=== PATIENT | male | born 1960 | race Caucasian/White ===

== ENCOUNTER 2021-10-28 12:10 | Outpatient (CLI) | payer OTHER, SELFPAY ==
--- NOTE | ~2021-10-28 | US_ITS ---
EXAMINATION: US venous doppler LE RT DATE: 10/28/2021 12:56 INDICATION: Right lower limb pain TECHNIQUE: Yen scale images without and with compression and Doppler images of the right lower extre mity veins were obtained. COMPARISON: None FINDINGS: The right common femoral vein, profunda femoral vein, femoral vein, popliteal vein, peronea l trunk, posterior tibial veins, and greater saphenous vein are patent. IMPRESSION: 1. Patent right lower extremity veins. No evidence of deep venous thrombosis. 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 CTOR OF AGRONOMY
== END 2021-10-28 12:11 | disposition home or self-care (01) ==
PROVIDERS: PCP Internal Medicine; Visit Provider Orthopaedic Surgery
DX: M79.89 Other specified soft tissue disorders (principal)
CPT/HCPCS: 93971

== ENCOUNTER 2022-04-10 01:39 | Day surgery (SDC) | payer OTHER, SELFPAY ==
[2022-03-23 16:08] VITALS: BMI 26.8
--- NOTE | 2022-04-07 13:37 | PM.HPGS ---
History of Present Illness History of Present Illness Consent: Risks, benefits, and alternatives have been discussed and questions answered. Patient agrees to proceed with procedure. Chief complaint: hx of colon polyps, neoplasm screening Narrative: Kenneth Lai is a 61 year old male With a history of polyps. He had a tubular adenoma Review of Systems Review of Systems: All systems reviewed & are unremarkable except as noted in HPI and below PMFSH Past Medical History Medical History Chronic, continuous use of opioids Hyperlipidemia Rheumatoid arthritis Surgical History Surgical History History of appendectomy History of cholecystectomy Social History Social History Smoking status: Former smoker Tobacco type: cigarettes Alcohol intake: current Alcohol use details: 12 pack a week, socially Substance use: current Substance use type: marijuana Other substance usage details: daily Living arrangements: with family Spiritual care concerns: No Meds Home Medications and Allergies Home Medications Medication Instructions Recorded Confirmed Type sodium sul 1.479 gram-potas ch See Rx Instructions PO PER PKG DIR 03/07/22 03/23/22 Rx 0.188 gram-magnes sul 0.225 gram #24 tabs tablet (Sutab) adalimumab 40 mg/0.4 mL 40 ea subcut DAILY 03/23/22 03/23/22 History subcutaneous pen kit (Humira(CF) Pen) atorvastatin 20 mg tablet 20 tablet PO DAILY 03/23/22 03/23/22 History folic acid 1 mg tablet 1 mg PO DAILY 03/23/22 03/23/22 History gabapentin 300 mg capsule 300 mg PO QPM 03/23/22 03/23/22 History meloxicam 15 mg tablet 15 tablet PO DAILY 03/23/22 03/23/22 History methotrexate sodium 2.5 mg tablet 2.5 tablet PO DAILY 03/23/22 03/23/22 History methylprednisolone 4 mg tablets in 4 mg PO WEEKLY 03/23/22 03/23/22 History a dose pack tramadol 50 mg tablet tablet PO TID 03/23/22 History Allergies Allergy/AdvReac Type Severity Reaction Status Date / Time No Known Allergies Allergy Verified 04/10/22 09:07 Exam Resp: Auscultation: clear to auscultation bilaterally Cardio: Rate: regular rate Rhythm: regular rhythm GI: GI Palp: Yes Soft to palpation and No Tenderness to palpation present (GI) Assessment and Plan Assessment and plan (1) Colon cancer screening: Code(s): Z12.11 - Encounter for screening for malignant neoplasm of colon Status: Acute Assessment and Plan: Colonoscopy with possible biopsy or polypectomy or cautery or injection of substances.
--- NOTE | 2022-04-10 07:19 | WPDANESEPPF ---
Anes - Initial Pre Proc Eval Procedure: Operation Date: 04/10/22 09:00 Proposed Procedures p Screening Colonoscopy - Trenton Ingram MD Date/Time: 04/10/22 07:20 Surgeon: Trenton Ingram MD Pre Op Diagnosis: hx of colon polyps, neoplasm screening Patient Data Age: 61 Gender: M Height: 1.78 m Weight: 84.9 kg Allergies Allergy/AdvReac Type Severity Reaction Status Date / Time No Known Allergies Allergy Verified 04/10/22 09:07 Home Medications Medication Instructions Recorded Confirmed Type sodium sul 1.479 gram-potas ch See Rx Instructions PO PER PKG DIR 03/07/22 03/23/22 Rx 0.188 gram-magnes sul 0.225 gram #24 tabs tablet (Sutab) adalimumab 40 mg/0.4 mL 40 ea subcut DAILY 03/23/22 03/23/22 History subcutaneous pen kit (Humira(CF) Pen) atorvastatin 20 mg tablet 20 tablet PO DAILY 03/23/22 03/23/22 History folic acid 1 mg tablet 1 mg PO DAILY 03/23/22 03/23/22 History gabapentin 300 mg capsule 300 mg PO QPM 03/23/22 03/23/22 History meloxicam 15 mg tablet 15 tablet PO DAILY 03/23/22 03/23/22 History methotrexate sodium 2.5 mg tablet 2.5 tablet PO DAILY 03/23/22 03/23/22 History methylprednisolone 4 mg tablets in 4 mg PO WEEKLY 03/23/22 03/23/22 History a dose pack tramadol 50 mg tablet tablet PO TID 03/23/22 History Patient hx anesthesia problems: none Family hx anesthesia problems: none Results Review: All pre-operative results and documents have been reviewed as part of the pre-operative evaluation. [facility] Past Medical History Medical History Chronic, continuous use of opioids Hyperlipidemia Rheumatoid arthritis Surgical History Surgical History History of appendectomy History of cholecystectomy Social History Social History Smoking status: Former smoker Tobacco type: cigarettes Alcohol intake: current Alcohol use details: 12 pack a week, socially Substance use: current Substance use type: marijuana Other substance usage details: daily Living arrangements: with family Spiritual care concerns: No Anes - Eval Final PreProcedure Day of Procedure 04/10/22 07:20 Patient weight: overweight Heart: regular rate and rhythm Lungs: clear to auscultation Airway: Mallampati scale class II Neurological: alert and oriented Last oral intake: >/= 8 hours ASA classification: III Emergent: no Anesthetic plan: proceed Anesthesia type and monitoring: general GIVS and standard monitoring Results Review: All pre-operative results and documents have been reviewed as part of the pre-operative evaluation. Informed Consent: The patient's anesthetic plan and its attendant risks and benefits were discussed with the patient/family/POA. Questions were solicited and answers provided to the satisfaction of the patient/family/POA.
[2022-04-10 09:08] VITALS: BP 164/93; PULSE 60; RESP 20; TEMP 36.5; O2SAT 100
[2022-04-10] MEDS: LACTATED RINGERS 1,000 ML 150 ML IV CONT (09:28)
[2022-04-10] MEDS: AMPICILLIN 2 GM/NS 100 ML 2 GM/100 ML BAG IVPB (09:30)
[2022-04-10] MEDS: SIMETHICONE ORAL SUSPENSION 20 MG/0.3 ML 30 ML BOTTLE 0.6 ML IRRIGATION (09:48)
[2022-04-10 09:54] VITALS: BP 140/92; PULSE 81; RESP 21; O2SAT 98
[2022-04-10 10:04] VITALS: BP 160/97; PULSE 66; RESP 16; O2SAT 97
[2022-04-10 10:14] VITALS: BP 132/90; PULSE 64; RESP 16; O2SAT 98
== END 2022-04-10 10:19 | disposition home or self-care (01) ==
PROVIDERS: PCP Internal Medicine; Visit Provider Internal Medicine Gastroenterology
PROC: 0DJD8ZZ Inspection of Lower Intestinal Tract, Via Natural or Artificial Opening Endoscopic (ICD-10-PCS; CPT 45378; principal; 2022-04-10 09:00)
DX: Z12.11 Encounter for screening for malignant neoplasm of colon (principal); K57.30 Diverticulosis of large intestine without perforation or abscess without bleeding; Z86.010 Personal history of colon polyps; E78.5 Hyperlipidemia, unspecified; M06.9 Rheumatoid arthritis, unspecified; Z87.891 Personal history of nicotine dependence; F12.90 Cannabis use, unspecified, uncomplicated
CPT/HCPCS: 45378; J0290; J2001; J2704; J7120

== ENCOUNTER 2024-11-20 08:01 | Outpatient (CLI) | payer OTHER, SELFPAY ==
--- NOTE | ~2024-11-20 | CT_ITS ---
EXAMINATION: CT IAC/mastoids BI wo con DATE: 11/20/2024 08:23 INDICATION: Cholesteatoma. TECHNIQUE: Computed tomography (CT) of the temporal bones was performed without intravenous contrast. Automated exposure control and iterative reconstruction technique were employed. The dose-length pro duct was 218.72 mGy-cm. COMPARISON: None FINDINGS: RIGHT TEMPORAL BONE: The internal auditory canal, cochlea, vestibule, semicircular canals, vestibular aqueduct, carotid ca nal, jugular bulb, facial nerve course, and ossicles are normal. There is material measuring 2 mm in Prussak space. Scutum is normal. The tympanic membrane is normal. There is a right mastoid effusion. The external auditory canal is normal. LEFT TEMPORAL BONE: The internal auditory canal, cochlea, vestibule, semicircular canals, vestibular aqueduct, carotid ca nal, jugular bulb, and facial nerve course are normal. There is material in the tympanic cavity inclu ding Prussak space. There is an mastoid effusion. There is dehiscence of the tegmen tympani and tegme n mastoideum. There is blunting of scutum. The external auditory canal is normal. IMPRESSION: 1. Material measuring 2 mm in right Prussak space, which is indeterminate for cholesteatoma. 2. Left otomastoid effusion including material in Prussak space with dehiscence of the tegmen tympani and tegmen mastoideum and blunting of scutum, consistent with chronic otitis media versus cholesteat bernadine. 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 BER IMPRESSION: 1. Material measuring 2 mm in right Prussak space, which is indeterminate for c holesteatoma. 2. Left otomastoid effusion including material in Prussak space with dehiscence of the tegmen tympani and tegmen mastoideum and blunting of scutum, consistent with chronic otitis media versus cholesteatoma.
== END 2024-11-20 08:02 | disposition home or self-care (01) ==
PROVIDERS: PCP Internal Medicine; Visit Provider Nurse Practitioner Family
DX: H71.90 Unspecified cholesteatoma, unspecified ear (principal)
CPT/HCPCS: 70480

== ENCOUNTER 2024-11-28 12:25 | Outpatient (CLI) | payer OTHER, SELFPAY ==
--- NOTE | ~2024-11-28 | MR_ITS ---
EXAMINATION: MR hand RT wo/w con DATE: 11/28/2024 13:14 INDICATION: Mass at the right third digit TECHNIQUE: Magnetic resonance imaging (MRI) of the right hand was performed without and with 19 mL Mu ltihance intravenous contrast. A marker was placed over the mass. Sequences included axial, sagittal and coronal T1-weighted FSE and fluid sensitive FSE STIR, axial T1-weighted FS FSE and post contrast axial and sagittal T1-weighted FS FSE. COMPARISON: None. FINDINGS: There is a mass positioned along the dorsal margin of the third middle phalanx which measures 1.8 x 1 .6 x 1.0 cm which demonstrates is T1 hyperintense and mildly T2 hyperintense to skeletal muscle. Ther e is an enhancing region at the ulnar side of the nodule. There is a second slightly smaller nodule m easuring 1.5 x 1.0 x 0.6 cm along the radial side of the third distal interphalangeal joint which dem onstrates similar imaging features with mild enhancement on the postcontrast imaging. The masses are in very close proximity but a definitive communication between the 2 cannot be identified on the prov ided images. The mass abuts the cortices of the middle and distal phalanges but without evident corti veda erosion or remodeling. The underlying marrow signal is normal as is throughout the remainder of t he visualized hand. The dorsal mass lies along the dorsal margin of the flexor tendons which the serge steve of the flexor and extensor tendons appear normal. No other masses identified. There is mild yaquelin yarticular osteoarthritis at the triscaphe, first carpometacarpal and multiple metacarpophalangeal an d interphalangeal joints. No joint effusions, 2 cm other abnormal fluid collections. IMPRESSION: 1. There are couple nonspecific small partially/heterogeneously enhancing masses in the mid to distal third digit which is concerning for neoplasm which could be either benign or malignant. Reviewed, dictated and finalized at location B. RR TECHNICIAN IMPRESSION: 1. There are couple nonspecific small partially/heterogeneously enhancing zeke s in the mid to distal third digit which is concerning for neoplasm which could be either benign or malignant.
== END 2024-11-28 12:26 | disposition home or self-care (01) ==
PROVIDERS: PCP Internal Medicine; Visit Provider Physician Assistant Surgical
DX: R22.31 Localized swelling, mass and lump, right upper limb (principal)
CPT/HCPCS: 73220; A9577

== ENCOUNTER 2025-01-22 06:02 | Day surgery (SDC) | payer OTHER, SELFPAY ==
[2025-01-02 09:30] VITALS: BMI 28.5
--- NOTE | 2025-01-07 12:46 | PC.NURSE ---
Chart reviewed by Dr Mckeon; no EKG needed pre op.
--- OUTSIDE RECORDS SUMMARY | 2025-01-22 06:40 | XMS_ITS | CONTINUITY OF CARE DOCUMENT ---
Author Name hosea jc Address Unknown Organization [facility] Address [address] [place] [address] Phone [phone] Care Team Providers Care Wrapper Hand Name Role Phone Varun ROMERO, Sheyla Unavailable [phone] JORDIN MENA MD Unavailable JORDIN MENA MD Unavailable PROBLEMS Condition Status Date Provider Notes Rheumatoid arthritis (RA) active Romulo Ahmed martina GERD active Romulo Ahmedzai Hyperlipidemia active Romulo Ahmedzai Shortness of breath--echo ef 65%, 09/2022 active Romulo Ahmedzai Emphysema completed - Romulo Ahmedzai Family hx of heart disease active Sheyla redd MD Chest pain--nl stress nuc, 09/2022 active Romulo Ahshruthizai Fatigue active Sheyla Bond MD Hypertension active Sheyla Bond MD JENNIFER has overnight cpap study scheduled active Sheyla Bond MD ENCOUNTERS Date Type Provider Location Encounter Diag nosis - In-person encounter Office Visit Sheyla Bond MD [facility] - In-person encounter Office Visit Sheyla Bond MD [facility] JENNIFER has overnight cpap study scheduled - In-person encounter Office Visit Sheyla Bond MD [facility] HypertensionOSA has overnight cpap study scheduled - In-person encounter Office Visit Sheyla Bond MD [facility] Shortness of breath--echo ef 65%, 09/2022EmphysemaChest pain--nl stress nuc, 09/2022 - In-person encounter Office Visit Sheyla Bond MD [facility] Family hx of heart diseaseChest pain--nl stress nuc, 09/2022Fatigue VITAL SIGNS Date Observation Value Provider Body Mass Index (Ratio) 4.27 kg/m2 Priyank Bond MD blood pressure, diastolic 87 mm[Hg] Mendoza [facility] blood pressure, systolic 119 mm[Hg] Tracy kamara [place] oxygen saturation, oximetry 93 % [facility] pulse rate 72 /min [facility] weight E&M 203.6 [lb_av] [facility] blood pressure, cuff size regular Mendoza [facility] height E&M 183 [in_i] [facility] Body Mass Index (Ratio) 4.16 kg/m2 Priyank Bond MD blood pressure, cuff size regular Connor sherryvazquez Poon blood pressure, diastolic 84 mm[Hg] Ta bitha Poon blood pressure, systolic 124 mm[Hg] Tab itha Poon oxygen saturation, oximetry 100 % Tena Poon respiratory rate E&M 12 /min Tena Poon pulse rate 76 /min Tena Poon weight E&M 198.4 [lb_av] Tena Poon height E&M 183 [in_i] Tena Poon Body Mass Index (Ratio) 4.07 kg/m2 Priyank Bond MD blood pressure, diastolic 90 mm[Hg] Tyra cabralesLogestephanie blood pressure, systolic 139 mm[Hg] Suzanne [facility] blood pressure, cuff size regular Angle borja [place] blood pressure, diastolic 90 mm[Hg] Angle borja [place] blood pressure, systolic 139 mm[Hg] Ezio orantes Poon pulse rate 72 /min Charmaine Bartlett oxygen saturation, oximetry 92 % [facility] respiratory rate E&M 16 /min Charmaine Smith iller weight E&M 194 [lb_av] [facility] height E&M 183 [in_i] [facility] Body Mass Index (Ratio) 3.64 kg/m2 Priyank Bond MD blood pressure, diastolic 77 mm[Hg] St amauri Bae blood pressure, systolic 126 mm[Hg] Dov Bae oxygen saturation, oximetry 98 % Phoebe Bae pulse rate 61 /min Phoebe Bae weight E&M 173.6 [lb_av] Phoebe Bae respiratory rate E&M 16 /min Phoebe D jessie height E&M 183 [in_i] Phoebemilan Bae Body Mass Index (Ratio) 1.51 kg/m2 Priyank Bond MD blood pressure, diastolic 86 mm[Hg] Tyra Log blood pressure, systolic 130 mm[Hg] [facility]&M 72 [lb_av] Phoebemilan Bae height E&M 183 [in_i] Phoebe Catalino blood pressure, diastolic 86 mm[Hg] St acy Catalino blood pressure, systolic 130 mm[Hg] Sta cy Catalino oxygen saturation, oximetry 95 % Phoebemilan Bae pulse rate 66 /min Phoebe Catalino respiratory rate E&M 18 /min Phoebe D jessie ALLERGIES No Known Drug Allergies HISTORY OF MEDICATION USE Medication Status Instructions Dates Provider Indications Com ments ferrous sulfate 325 mg (65 mg iron) tablet active Take 1 tablet by mouth three times a day Peyton Magallon Vitamin C 500 mg tablet active Take 1 tablet by mouth once a day Peyton Magallon losartan 50 mg tablet active Take 1 tablet by mouth once a day TAKE 1 TABLET BY MOUTH EVERY DAY Ashley Tovarjerabilio losartan 50 mg tablet completed TAKE 1 TABLET BY MOUTH ONCE DAILY - Ashley Tovarjerabilio omeprazole 40 mg capsule,delayed release(DR/EC) active Romulo Osborne Enbrel SureClick 50 mg/mL (1 mL) pen injector active Romulo Osborne losartan 50 mg tablet completed - Romulo Osborne Humira(CF) Pen 40 mg/0.4 mL pen injector kit completed - Romulo Osborne methotrexate sodium 2.5 mg tablet completed - Romulo Osborne tramadol 50 mg tablet completed - Sheyla Bond MD gabapentin 300 mg capsule completed - Romulo Osborne atorvastatin 20 mg tablet active Romulo Osborne SOCIAL HISTORY Date Observation Value Provider Underweight yes Sheyla Bond MD passive cigarette sm april exposure no Romulo Osborne chewing tobacco use Never Romulo banda smoking, year quit 2020 Romulo nix cigarette use yes Romulo Osborne smoking status Former smoker Romulo Munguia i passive cigarette sm april exposure no Sheyla Bond MD chewing tobacco use Never Sheyla balderrama MD smoking, year quit 2020 Sheyla redd MD cigarette use yes Sheyla Eid smoking status Former smoker Sheyla Bond MD Underweight yes Sheyla Bond MD Underweight yes Sheyla Bond MD passive cigarette sm april exposure no Romulo Osborne chewing tobacco use Never Romulo Bautista solo smoking, year quit 2020 Romulo Lopez boyd cigarette use yes Romulo Nemobrynn smoking status Former smoker Romulo Chesterfunmilayo rodriguez Underweight yes Sheyla Bond MD social history E&M S moking History: J Carlos perez is a former smoker. Romulo Osborne passive cigarette sm april exposure no Phoebe Catalino chewing tobacco use Never Phoebe Da vis smoking, year quit 2020 Phoebe Sandro is cigarette use yes Phoebe Catalino smoking status Former smoker Phoebe Catalino social history reviewed E&M revi ewed - no changes required Romulo Osborne Underweight yes Sheyla Bond MD social history E&M S moking History: J Carlos perez is a former smoker. Romulo Osborne smoking, year quit 2020 Phoebe Sandro is cigarette use yes Phoebe Catalino passive cigarette sm april exposure no Phoebe Catalino chewing tobacco use Never Phoebe Da vis smoking status Former smoker Phoebe Catalino social history reviewed E&M revi ewed - no changes required Romulo Osborne INSURANCE PROVIDERS Payer name Policy type / Coverage type Wellpinit red republican ID [facility] [id number] Other [id number] ADVANCE DIRECTIVES Name Date DISCUSSED - NO DECISION MADE TREATMENT PLAN Date Name Performer [id number],S, Romulo Munguia i [id number],S, Romulo Munguia i [id number],S, Romulo Munguia i [id number],B, Romulo Munguia i [id number],S, Romulo Munguia i [id number],S, Romulo Munguia i [id number],S, Romulo Munguia i [id number],S, Romulo Munguia i [id number],S, Romulo Munguia i [id number],S, Romulo Munguia i Cardiology:This visi t has been a part of the consistent, comprehensive, and ongoing management of the chronic medical condition(s) listed above for the patient. BP today: 119/87 P rior BP: 124/84 (02/25/2024) His updated medication list for this problem includes: Losartan 50 Mg Tablet (Losartan) ..... Take 1 tablet by mouth once a day take 1 tablet by mouth every day Sheyla Bond MD Cardiology:The patie nt is using CPAP on a regular basis. The patient has been benefiting from therapy and should continue use. Romulo Osborne Cardiology Romulo Osborne Cardiology Romulo Osborne Cardiology: B P today: 119/87 P rior BP: 124/84 (02/25/2024) His updated medication list for this problem includes: Losartan 50 Mg Tablet (Losartan) ..... Take 1 tablet by mouth once a day take 1 tablet by mouth every day Romulo Osborne Cardiology Romulo Osborne Cardiology Sheyla Bond MD Cardiology Sheyla Bond MD Cardiology: H is updated medication list for this problem includes: Atorvastatin 20 Mg Tablet (Atorvastatin) Sheyla Bond MD Cardiology: H is updated medication list for this problem includes: Losartan 50 Mg Tablet (Losartan) ..... Take 1 tablet by mouth once daily Sheyla Bond MD Cardiology Sheyla Bond MD Cardiology: B P today: 139/90 P rior BP: 126/77 (10/17/2022) The following medications were removed from the medication list: Losartan 50 Mg Tablet (Losartan) His updated medication list for this problem includes: Losartan 50 Mg Tablet (Losartan) ..... Take 1 tablet by mouth once daily Sheyla Bond MD Cardiology Romulo Ahmedzai Cardiology Romulo Ahmedzai Cardiology Romulo Ahmedzai Cardiology: H is updated medication list for this problem includes: Atorvastatin 20 Mg Tablet (Atorvastatin) Romulo Ahmedzai Cardiology Romulo Ahmedzai Cardiology Romulo Ahmedzai Cardiology Romulo Ahmedzai Cardiology Romulo Ahmedzai Cardiology Romulo Ahmedzai Cardiology Romulo Ahmedzai Cardiology Romulo Ahmedzai Cardiology Romulo Ahmedzai Cardiology Romulo Ahmedzai Cardiology Romulo Ahmedzai Cardiology Romulo Ahmedzai Cardiology Romulo Ahmedzai Date Name Sleep Study Home RPM (remote patient monitoring) Stress Regadenoson Complete Echo HISTORY OF PROCEDURES Procedure Date Procedure Name Provider Procedure Notes S tatus Complex e/m visit add on Sheyla Bond MD completed EKG Sheyla Bond MD completed
--- OUTSIDE RECORDS SUMMARY | 2025-01-22 06:40 | XMS_ITS | Referral Summary ---
Author Organization [facility] Address [address] [place] [id number] Care Team Providers Care Service Architect Name Role Phone Chalo Calderon MD Primary Care Provider Encounters Date Type Department Care Team Description 01/01/2025 9:37 PM CDT - 01/01/2025 11:59 PM CDT Hospital Encounter [facility] ([facility]) [address] [place] [id number] Discharge Disposition: Discharge to home or self care 12/30/2024 4:20 PM CDT Office Visit [facility] [address] [place] [address] Diaz Zaldivar MD Conductive hearing loss, bilateral (Primary Dx); Cholesteatoma of left ear 12/30/2024 4:00 PM CDT Procedure visit [facility] Otolaryngology [address] [place] [address], [address] [place] [address] Mixed conductive and sensorineural hearing loss of right ear with restricted hearing of left ear (Primary Dx); Sensorineural hearing loss (SNHL) of left ear with restricted hearing of right ear 11/21/[address] [facility] ([facility]) - [facility] ENT [address] [place] [address] [place] [address] Katarina Hurd MS registered from Last 3 Months Allergies No known active allergies Medications omeprazole (PriLOSEC) 40 mg capsule Take by mouth daily Active losartan (COZAAR) 50 mg tablet Take 1 tablet (50 mg total) by mouth daily Active ferrous sulfate 325 mg (65 mg of elemental iron) tablet ferrous sulfate 325 mg (65 mg iron) tablet Active cyclobenzaprine (FLEXERIL) 10 mg tablet Take by mouth 3 (three) times a day as needed 12/15/2024 Active clotrimazole-be tamethasone (LOTRISONE) cream APPLY ON THE AFFECTED/SURR OUNDING AREA(S) ON THE SKIN TWICE DAILY IN THE MORNING/EVENI NG X2 WEEKS 10/23/2024 Active ciprofloxacin-d exAMETHasone (CIPRODEX) otic suspension INSTILL 4 DROPS INTO AFFECTED EAR(S) TWICE A DAY FOR 7 DAYS 11/12/2024 Active atorvastatin (LIPITOR) 20 mg tablet Take 1 tablet (20 mg total) by mouth daily Active ascorbic acid (ascorbic acid with jaguar hips) 500 mg tablet,chewable Vitamin C 500 mg tablet Active Active Problems Problem Noted Date Diagnosed Date Hypertension 11/27/2023 Obstructive sleep apnea syndrome 11/27/2023 Chest pain, unspecified 09/18/2022 Fatigue 09/18/2022 Gastroesophageal reflux disease 09/18/2022 Hyperlipidemia 09/18/2022 Rheumatoid arthritis 09/18/2022 Shortness of breath 09/18/2022 Basal cell carcinoma (BCC) of skin of lip 2016 Social History Tobacco Use Types Packs/Day Years Used Date Smoking Tobacco: Never Assessed Sex and Gender Information Value Date Recorded Sex Assigned at Not on file Legal Sex Male 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 There will be no report generated by a [facility] Radiologist. Narrative RAD_PACS_[facility] - 01/01/2025 9:37 PM CDT EXAMINATION: Images For Reference Purposes Only us Diaz Zaldivar MD IMG CT PROCEDURES Final Res ult RAD_PACS[facility] * AudBase Results (12/30/2024 3:37 PM CDT) us Provider Scanning AUDIOLOGY SERVICES ORDERABLES Final Result from Last 3 Months Insurance [facility] CHOICE PLUS [facility] HMO/PPO Address: [place] [address] Care Teams Service Architect Relationship Specialty Start Date End Date Chalo Calderon MD PCP - General 03/30/17
--- OUTSIDE RECORDS SUMMARY | 2025-01-22 06:40 | XMS_ITS | Clinical Summary ---
Author Organization [facility] Address [address] [place] [phone] Care Team Providers Care Seo Executive Name Role Phone Chalo Calderon MD Primary Care Provider Allergies No known active allergies Medications omeprazole [...] carcinoma (BCC) of skin of lip 2016 Encounters Date Type Department Care Team Description 01/01/2025 9:37 PM CDT - 01/01/2025 11:59 PM CDT Hospital Encounter [facility] ([facility]) [address] [place] [id number] Discharge Disposition: Discharge to home or self care 12/30/2024 4:20 PM CDT Office Visit [facility] Otolaryngology [address], [address] [place] [phone] Diaz Zaldivar MD Conductive hearing loss, bilateral (Primary Dx); Cholesteatoma of left ear 12/30/2024 4:00 PM CDT Procedure visit [facility] Otolaryngology [address], [address] [place] [address] Mixed conductive and sensorineural hearing loss of right ear with restricted hearing of left ear (Primary Dx); Sensorineural hearing loss (SNHL) of left ear with restricted hearing of right ear 11/21/2024 Telephone [facility] ([facility]) - [facility] ENT [address] [facility] [address]th [place] [address] [place] [address] Katarina Hurd MS registered from Last 3 Months Social History Tobacco Use Types Packs/Day Years Used Date Smoking Tobacco: Never Assessed Sex and Gender Information Value Date Recorded Sex Assigned at Not on file Legal Sex Male 6:26 PM [employer] Gender Identity Not on file Sexual Orientation Not on file Obstetrics History Plan of Treatment Health Maintenance Due Date Last Done Comments Colon Cancer Screening-Colonoscopy 1959 Depression Screening 1959 Fall Risk Assessment 1959 Hepatitis C Screening 1959 Prostate Cancer Screening-PSA 1959 Hepatitis B Screening 1977 Pneumococcal vaccine 65+ (1 of 2 - PCV) 1978 Zoster Vaccine (1 of 2) 2009 Abdominal Aortic Aneurysm (AAA) Screen 2024 Well Visit 65+ 2024 Influenza Vaccine (#1) 2024 DTaP/Tdap/Td Vaccine (2 - Td or Tdap) 02/28/2028 05/ 06/2018 Procedures Procedure Name Priority Date/Time Associated Diagnosis Comments NEURO CT OUTSIDE REFERENCE Routine 01/01/2025 9:37 PM CDT AUDBASE RESULTS 12/30/2024 3:37 PM CDT from Last 3 Months Results * Neuro CT Outside Reference (01/01/2025 9:37 PM CDT) Impressions [id number] - 01/01/2025 9:37 PM CDT These images are for Reference purposes only and have not been reviewed by [facility] Radiology. There will be no report generated by a [facility] Radiologist. Narrative [email or web address] - 01/01/2025 9:37 PM CDT EXAMINATION: Images For Reference Purposes Only us Diaz Zaldivar MD IMG CT PROCEDURES Final Res ult Performing Organization Address City/State/[facility] Co de Phone Number [email or web address] * AudBase Results (12/30/2024 3:37 PM CDT) us Provider Scanning AUDIOLOGY SERVICES ORDERABLES Final Result from Last 3 Months Insurance [facility] CHOICE PLUS Care Teams Seo Executive Relationship Specialty Start Date End Date Chalo Calderon MD PCP - General 03/30/17
--- OUTSIDE RECORDS SUMMARY | 2025-01-22 06:40 | XMS_ITS | Continuity of Care Document ---
Author Organization [facility] Address [address] [place] [address] Phone Care Team Providers Care Manufacturer Agent Name Role Phone Medley OD, Luke Unavailable Unavailable Advance Directives Directive Yes / No Effective Date File Name No Information Encounters Encounter Description Practice Location Reason(s) For Visit Diagnoses Date Provider Providers Copied on Encounter [facility], [address], [place], [place], [id number], [place] tel:[phone] [facility] No Information [phone] 5 Medley OD Luke. [address] , [address], [place], [address], [place]. tel:[phone] Family History Family Member Type Diagnosis Age At Onset No Information Payers Payer name Insurance type Covered constitution party ID Authoriza tion(s) No Information Social History Type Description Quantity Date Captured Comments Sex Male Smoking Status No Information Chief Complaint And Reason For Visit No Information Reason For Referral Reason For Referral No Information History Of Present Illness Encounter Date Complaint History Of Prese nt Illness No Information Functional Status Date Functional Assessmen t No Information Instructions Date Instruction Additional Infor mation No Information Assessments Type Assessment Date No Information Patient Care Teams Name Effective Dates (start - stop) Status Members No Information
--- OUTSIDE RECORDS SUMMARY | 2025-01-22 06:40 | XMS_ITS | Clinical Summary ---
Author Organization [facility] Address [address] [address] Care Team Providers Care Foam Caster Name Role Phone Chalo Calderon MD Primary Care Provider [phone] Source Comments [facility],non-owned Affiliates and Associated Physician Practices is amultiple site organization consisting of ambulatory clinics and hospital sitesin [place] and [place]. This disclosure is being madepursuant to the Care Everywhere program and may not contain all information available regarding this patient. Last updated 18.[facility] Social History Tobacco Use Types Packs/Day Years Used Date Smoking Tobacco: Never Assessed Sex and Gender Information Value Date Recorded Sex Assigned at Not on file Gender Identity Not on file Sexual Orientation Not on file Plan of Treatment Health Maintenance Due Date Last Done Comments COLOGUARD (AGES 45-75) - COL ON CA SCREENING 1959 COLON MONITORING 1959 COLONOSCOPY - COLON CA SCREENING 1959 CT COLONOGRAPHY - COLON CA SCREENING 1959 Colorectal Cancer Screening 1959 FIT - COLON CA SCREENING 1959 FLEX SIG - COLON CA SCREENING 1959 LIPID TESTING 1959 HIV SCREENING 1974 HEPATITIS C SCREENING 05/08/1977 DTAP/TDAP/TD VACCINES (1 - Tdap) 1978 PNEUMOCOCCAL VACCINE 50+ (1 of 1 - PCV) 2009 ZOSTER VACCINE (1 of 2) 2009 COVID-19 VACCINE ( - 2023-2 5 season) 2024 INFLUENZA VACCINE (#1) 2024 DEPRESSION SCREENING 10/22/2024 Respiratory Syncytial Virus (RSV) Vaccine Pt: or over 60 yrs (1 - 1-dose 75+ series) 2034 HEPATITIS B VACCINE Aged Out No longe r eligible based on patient's age to complete this topic HIB VACCINE Aged Out No longer eligi ble based on patient's age to complete this topic HPV VACCINE Aged Out No longer eligi ble based on patient's age to complete this topic MENINGOCOCCAL (Group B) VACC INE SHARED DECISION-MAKING Aged Out No longer eligibl e based on patient's age to complete this topic MENINGOCOCCAL GROUPS A/C/Y/W VACCINE Aged Out No longer eligible b ased on patient's age to complete this topic Care Teams Foam Caster Relationship Specialty Start Date End Date Chalo Calderon MD [address] [place] [address] [address] [place] [address] PCP - General Internal Medicine 06/17/19
--- OUTSIDE RECORDS SUMMARY | 2025-01-22 06:40 | XMS_ITS | Data Portability ---
Author Organization [place] - [facility] [employer], Main Office Address [address] [place] [address] Care Team Providers Care Cardiopulmonary Technologist Chief Name Role Phone JORDIN CALDERON Primary Care Provider [phone] Assessment Encounter Date Assessment Date Assessment LastModified by Organization Details LastModified Time 03/25/2024 03/25/2024 Assessment: Very severe OSAHS, AHI = 60 PLMD Plan: The following were reviewed and explained to the patient: primary care/referral note [facility] home sleep study 12/12/23 AHI = 60 [facility] titration sleep study 03/19/24 sleep onset = 3.5 minutes, REM onset = 116 minutes, ResMed medium AirFit F20 full face mask @ 10-13 cmH2O, PLMI = 39 Non-pharmacologic therapy options for periodic limb movement disorder include avoidance of aggravating drugs and substances, mental alerting activities, short daily hemodialysis for patients in renal failure, exercise, leg massage, stretching calf muscles, use of a weighted blanket and applied heat. Patient will cut down on alcohol consumption and caffeine intake. We will check BUN, Creatinine, Vitamin E, Vitamin B12, RBC folate, Iron, TIBC, Ferritin, ESR, Magnesium, Hgb and Hct levels. Educated the patient on problems and solutions associated with positive airway pressure (PAP) use. Difficulty tolerating pressure, mask leaks, intolerance of interface, nasal congestion, claustrophobic response, dry mouth, and unintentional mask removal during sleep were covered. Patient experiences claustrophobic response. Patient will practice wearing PAP mask daily while awake and undergo PAP desensitization. We will check fit of patient's mask and provide a sleeker alternative as necessary. ResMed Air Sense 11 auto set unit with heated humidifier, supplies and ResMed medium AirFit F20 full face mask @ 10-13 cmH2O ordered. Further titration will be based on clinical response. Provided the patient with a list of local home care stores where positive airway pressure (PAP) units, accoutrement, and services are available. Home care store selection is based on patient's insurance carrier. Patient will setup an appointment with [facility] for supplies and pressure adjustments. A major predictor of success with use of PAP is follow-up with both the respiratory supplier and the treating physician. The respiratory supplier optimally will follow-up within two weeks after starting use while the treating physician optimally will follow-up within 90 days after starting therapy to assess adherence and effectiveness of treatment. The download results can show the treating physician information about adherence to treatment, residual AHI while on treatment and presence of large mask leakage. This information is especially helpful if the patient has residual sleepiness despite treatment. General information on sleep disordered breathing, evaluation of sleep disordered breathing, treatment with PAP therapy, and living with PAP therapy were covered. We discussed with the patient the impact of weight on: Sleep disordered breathing Hypertension Hyperlipidemia DOTTY We discussed with the patient the benefit of PAP therapy on: Sleep disordered breathing RVE Hypertension DOTTY Educated the patient on sleep hygiene measures. Relaxing rituals to rest easy, understanding foods with positive and negative impact on sleep, creating a peaceful sleep environment, timing of exercise, using herbal sleep aids, and practicing sleep-friendly meditation were covered. To determine how much sleep is needed, the patient will assess where he falls on the spectrum, examine what lifestyle factors such as work schedules and stress are affecting the quality and quantity of sleep. In general, adults need 7-9 hours of sleep. Educated the patient regarding foods that promote sleep. These include but are not limited to cherries, bananas, toast, oatmeal, and warm milk. Educated the patient regarding foods and drinks to avoid before bedtime. These include but are not limited to aged cheese, chocolate, spicy foods, tomato-based sauces, soy, ginseng tea and processed meat. Advocated influenza vaccination annually and pneumonia vaccination JAVI. Advocated weight loss through diet and exercise. Patient's ideal body weight according to height and gender is up to 185 lbs. Encouraged patient to adjust caloric intake to maintain/achieve ideal body weight, emphasizing on fruits, vegetables, whole grains, and fat-free or low-fat products. These include lean meats, poultry, fish, beans, eggs, and nuts and foods that are low in saturated fats, trans-fats, cholesterol, salt (sodium), and glycemic index. Stressed the importance of regular exercise up to the patient's capacity limits. In this case, we recommend 20 min daily walking, 2 days a week of resistance training. Patient to monitor BP daily and bring records to PCP for further management. Follow-up: 3 weeks Not available 03/25/2024 08:57:25 04/15/2024 04/15/2024 Assessment: Very severe OSAHS, AHI = 60 PLMD Iron deficiency Plan: The following were reviewed and explained to the patient: [facility] home sleep study 12/12/23 AHI = 60 [facility] titration sleep study 03/19/24 sleep onset = 3.5 minutes, REM onset = 116 minutes, ResMed medium AirFit F20 full face mask @ 10-13 cmH2O, PLMI = 39 Ferritin 03/25/24 60 ng/mL Non-pharmacologic therapy options for periodic limb movement disorder include avoidance of aggravating drugs and substances, mental alerting activities, short daily hemodialysis for patients in renal failure, exercise, leg massage, stretching calf muscles, use of a weighted blanket and applied heat. Patient will cut down on alcohol consumption and caffeine intake. BUN, Creatinine, Vitamin E, Vitamin B12, RBC folate, Iron, TIBC, ESR, Magnesium, Hgb and Hct levels are within normal limits. Patient will take FeSO4 325 mg + Vit C 500 mg daily to keep the ferritin > 75 ng/ml. We will hold off on dopaminergic therapy for now. PAP compliance downloaded and interpreted x 20 minutes. Data reviewed and explained to the patient. Average apnea/hypopnea index (AHI) is 4.9. Patient used PAP > 4 hours 100% of the time. PAP is set at 10-13 cmH2O. PAP will remain at 10-13 cmH2O. Keep CPAP start at 5 cmH2O. Keep ramp duration at 20 minutes. Keep humidifier level at automatic mode. Keep tube temperature at automatic mode. Keep EPR @ +2. Oxygen supplementation: none Patient is benefiting from PAP therapy. Encouraged patient to maintain PAP use more than 70% of the time. Statement of PAP use and benefits will be sent to the home care store. Educated the patient on problems and solutions associated with positive airway pressure (PAP) use. Difficulty tolerating pressure, mask leaks, intolerance of interface, nasal congestion, claustrophobic response, dry mouth, and unintentional mask removal during sleep were covered. Patient experiences claustrophobic response. Patient will practice wearing PAP mask daily while awake and undergo PAP desensitization. We will check fit of patient's mask and provide a sleeker alternative as necessary. Provided the patient with a list of local home care stores where positive airway pressure (PAP) units, accoutrement, and services are available. Home care store selection is based on patient's insurance carrier. Patient will setup an appointment with [facility] for supplies and pressure adjustments. A major predictor of success with use of PAP is follow-up with both the respiratory supplier and the treating physician. The respiratory supplier optimally will follow-up within two weeks after starting use while the treating physician optimally will follow-up within 90 days after starting therapy to assess adherence and effectiveness of treatment. The download results can show the treating physician information about adherence to treatment, residual AHI while on treatment and presence of large mask leakage. This information is especially helpful if the patient has residual sleepiness despite treatment. General information on sleep disordered breathing, evaluation of sleep disordered breathing, treatment with PAP therapy, and living with PAP therapy were covered. We discussed with the patient the impact of weight on: Sleep disordered breathing Hypertension Hyperlipidemia DOTTY We discussed with the patient the benefit of PAP therapy on: Sleep disordered breathing RVE Hypertension DOTTY Educated the patient on sleep hygiene measures. Relaxing rituals to rest easy, understanding foods with positive and negative impact on sleep, creating a peaceful sleep environment, timing of exercise, using herbal sleep aids, and practicing sleep-friendly meditation were covered. To determine how much sleep is needed, the patient will assess where he falls on the spectrum, examine what lifestyle factors such as work schedules and stress are affecting the quality and quantity of sleep. In general, adults need 7-9 hours of sleep. Educated the patient regarding foods that promote sleep. These include but are not limited to cherries, bananas, toast, oatmeal, and warm milk. Educated the patient regarding foods and drinks to avoid before bedtime. These include but are not limited to aged cheese, chocolate, spicy foods, tomato-based sauces, soy, ginseng tea and processed meat. Advocated influenza vaccination annually and pneumonia vaccination JAVI. Advocated weight loss through diet and exercise. Patient's ideal body weight according to height and gender is up to 185 lbs. Encouraged patient to adjust caloric intake to maintain/achieve ideal body weight, emphasizing on fruits, vegetables, whole grains, and fat-free or low-fat products. These include lean meats, poultry, fish, beans, eggs, and nuts and foods that are low in saturated fats, trans-fats, cholesterol, salt (sodium), and glycemic index. Stressed the importance of regular exercise up to the patient's capacity limits. In this case, we recommend 20 min daily walking, 2 days a week of resistance training. Patient to monitor BP daily and bring records to PCP for further management. Follow-up: 3 months, June 2024 Not available 04/15/2024 08:47:15 06/30/2024 06/30/2024 Assessment: Very severe OSAHS, AHI = 60 PLMD Iron deficiency Plan: The following were reviewed and explained to the patient: [facility] home sleep study 12/12/23 AHI = 60 [facility] titration sleep study 03/19/24 sleep onset = 3.5 minutes, REM onset = 116 minutes, ResMed medium AirFit F20 full face mask @ 10-13 cmH2O, PLMI = 39 Ferritin 03/25/24 60 ng/mL Ferritin 06/16/24 108 ng/mL Non-pharmacologic therapy options for periodic limb movement disorder include avoidance of aggravating drugs and substances, mental alerting activities, short daily hemodialysis for patients in renal failure, exercise, leg massage, stretching calf muscles, use of a weighted blanket and applied heat. Patient will cut down on alcohol consumption and caffeine intake. BUN, Creatinine, Vitamin E, Vitamin B12, RBC folate, Iron, TIBC, ESR, Magnesium, Hgb and Hct levels are within normal limits. Patient will continue FeSO4 325 mg + Vit C 500 mg but decrease from daily to three times weekly to keep the ferritin > 75 ng/ml. We will hold off on dopaminergic therapy for now. PAP compliance downloaded and interpreted x 20 minutes. Data reviewed and explained to the patient. Average apnea/hypopnea index (AHI) is 3.2. Patient used PAP > 4 hours 92% of the time. PAP is set at 10-13 cmH2O. PAP will remain at 10-13 cmH2O. Keep ramp start at 5 cmH2O. Keep ramp duration at 20 minutes. Keep humidifier level at automatic mode. Keep tube temperature at automatic mode. 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 Oxygen supplementation: none Patient is benefiting from PAP therapy. Encouraged patient to maintain PAP use more than 70% of the time. Statement of PAP use and benefits will be sent to the home care store. Educated the patient on problems and solutions associated with positive airway pressure (PAP) use. Difficulty tolerating pressure, mask leaks, intolerance of interface, nasal congestion, claustrophobic response, dry mouth, and unintentional mask removal during sleep were covered. Patient experiences claustrophobic response. Patient will practice wearing PAP mask daily while awake and undergo PAP desensitization. We will check fit of patient's mask and provide a sleeker alternative as necessary. Provided the patient with a list of local home care stores where positive airway pressure (PAP) units, accoutrement, and services are available. Home care store selection is based on patient's insurance carrier. Patient will setup an appointment with [facility] for supplies and pressure adjustments. A major predictor of success with use of PAP is follow-up with both the respiratory supplier and the treating physician. The respiratory supplier optimally will follow-up within two weeks after starting use while the treating physician optimally will follow-up within 90 days after starting therapy to assess adherence and effectiveness of treatment. The download results can show the treating physician information about adherence to treatment, residual AHI while on treatment and presence of large mask leakage. This information is especially helpful if the patient has residual sleepiness despite treatment. General information on sleep disordered breathing, evaluation of sleep disordered breathing, treatment with PAP therapy, and living with PAP therapy were covered. We discussed with the patient the impact of weight on: Sleep disordered breathing Hypertension Hyperlipidemia DOTTY We discussed with the patient the benefit of PAP therapy on: Sleep disordered breathing RVE Hypertension DOTTY Educated the patient on sleep hygiene measures. Relaxing rituals to rest easy, understanding foods with positive and negative impact on sleep, creating a peaceful sleep environment, timing of exercise, using herbal sleep aids, and practicing sleep-friendly meditation were covered. To determine how much sleep is needed, the patient will assess where he falls on the spectrum, examine what lifestyle factors such as work schedules and stress are affecting the quality and quantity of sleep. In general, adults need 7-9 hours of sleep. Educated the patient regarding foods that promote sleep. These include but are not limited to cherries, bananas, toast, oatmeal, and warm milk. Educated the patient regarding foods and drinks to avoid before bedtime. These include but are not limited to aged cheese, chocolate, spicy foods, tomato-based sauces, soy, ginseng tea and processed meat. Advocated influenza vaccination annually and pneumonia vaccination JAVI. Advocated weight loss through diet and exercise. Patient's ideal body weight according to height and gender is up to 185 lbs. Encouraged patient to adjust caloric intake to maintain/achieve ideal body weight, emphasizing on fruits, vegetables, whole grains, and fat-free or low-fat products. These include lean meats, poultry, fish, beans, eggs, and nuts and foods that are low in saturated fats, trans-fats, cholesterol, salt (sodium), and glycemic index. Stressed the importance of regular exercise up to the patient's capacity limits. In this case, we recommend 20 min daily walking, 2 days a week of resistance training. Patient to monitor BP daily and bring records to PCP for further management. Follow-up: 6 months, December 2024 [email or web address] Not available 06/30/2024 10:45:30 Plan of Treatment Reminders Order Date Submit Date Provider Last Modified By Organization Details Last Modified Time Details Appointments None recorded. Lab CBC w/ auto diff [address] [facility], [address] [place], [address], 4 15:46:48 CMP, serum or plasma [address] [facility], [address] [place], [address], 4 15:46:48 lipid panel, serum [address] [facility], [address] [place], [address], 4 15:46:49 ferritin, serum or plasma 2023 025 [email or web address] [facility] [place], [address] [place], [address], 5 10:14:57 ferritin, serum or plasma 2023 024 [facility], [address] [place], [address], 4 14:51:20 iron + TIBC + ferritin, serum 2023 024 [facility], [address] [place] [address], [address], 4 11:34:13 folate, RBC [email or web address] [place] [address] Outpatient Lab, [address] [place], [address], 4 10:57:13 vitamin B12, serum 2023 024 [facility], [address] [place] [address], [address], 4 11:50:09 ESR (erythrocy te sedimentat ion rate), blood 2023 024 [facility], [address] [place], [address], 4 11:34:13 hemoglobin + hematocrit , blood [email or web address] [place] [address] Outpatient Lab, [address] [place] [address], [address], 4 10:57:13 bun (blood urea nitrogen), serum or plasma [email or web address] [place] [address] Outpatient Lab, [address] [place], [address], 4 10:57:14 creatinine , serum or plasma [email or web address] [place] [address] Outpatient Lab, [address] [place] [address], [address], 4 10:57:14 magnesium, serum or plasma 2023 024 [facility] Lab, [address] [place], [address], 4 10:58:50 vitamin E, serum 2023 024 [facility] - Outpatient Lab, [address] [place], [address], 4 10:17:55 Referral None recorded. Procedures None recorded. Surgeries None recorded. Imaging None recorded. Medication Orders Ciprodex 0.3 %-0.1 % ear drops,susp ension 2024 [id number] [address] [place], [address], 5 10:34:58 ferrous sulfate 325 mg (65 mg iron) tablet 2023 024 [id number] [address] [place], [address], 4 10:46:10 Vitamin C 500 mg tablet 2023 024 [id number], [address] [place], [address], 4 10:46:10 ferrous sulfate 325 mg (65 mg iron) tablet 2023 024 [id number], [address] [place], [address], 4 08:47:22 Vitamin C 500 mg tablet 2023 024 [id number], [address] [place], [address], 4 08:47:22 Patient TargetsNo targets recorded. Patient Instructions Encounter Date Encounter Id Patient Instructions Last Modified By Organization Details Last Modified Time 09/17/2024 [id number] Follow-up hypertension, rheumatoid arthritis, hyperlipidemia and GERD all clinically stable. Is due for low-dose CT scan of the chest. Otherwise doing well. Last lipid panel looked excellent. Will check blood work consisting of CBC, CMP and lipid panel. Continue on current medications. Follow-up in six months Follow Up: 6 Months Approximate Date: 03/16/2025 Portions of the record may have been created with voice recognition software. Occasional wrong-word or [id number] substitutions may have occurred due to the inherent limitations of voice recognition software. Read the chart carefully and recognize, using context, where substitutions have occurred. Created: Jordin Calderon M.D. 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 He will have a CT of his temporal bones and we will follow-up on these results become available. Use Ciprodex eardrops as directed. [email or web address] Not available 11/12/2024 11:03:12 Reason for Referral None Reported. Results Created Date Observation Date Name Description Value Unit Range Abnormal Flag Note LastModifiedBy Organization Detail LastModifiedTime 03/25/20 24 03/25/2024 CBC/C OMPLE TE BLD COUNT W/DIF F white blood cells 10.1 x10'3 /uL 4.2-10 .8 Not Available [facility] (Lab) [address] [place], [address], 03/25/2024 10:54:33 03/25/20 24 03/25/2024 CBC/C OMPLE TE BLD COUNT W/DIF F red blood cells 4.14 x10'6 /uL 4.10-5 .80 Not Available [facility] (Lab) [address] [place], [address], 03/25/2024 10:54:33 03/25/20 24 03/25/2024 CBC/C OMPLE TE BLD COUNT W/DIF F hemoglobin 13.2 g/dL 13.2-1 7.0 Not Available [facility] (Lab) [address] [place], [address], 03/25/2024 10:54:33 03/25/20 24 03/25/2024 CBC/C OMPLE TE BLD COUNT W/DIF F hematocrit 39.9 % 39.3-5 0.0 Not Available [facility] (Lab) [address] [place], [address], 03/25/2024 10:54:33 03/25/20 24 03/25/2024 CBC/C OMPLE TE BLD COUNT W/DIF F mean red cell volume 96.4 fL 80.0-9 7.0 Not Available [facility] (Lab) [address] [place], [address], 03/25/2024 10:54:33 03/25/20 24 03/25/2024 CBC/C OMPLE TE BLD COUNT W/DIF F mean red cell hemoglobin 31.9 pg 27.0-3 3.0 Not Available [facility] (Lab) [address] [place], [address], 03/25/2024 10:54:33 03/25/20 24 03/25/2024 CBC/C OMPLE TE BLD COUNT W/DIF F mean RBC HGB concentratio n 33.1 g/dL 31.0-3 6.0 Not Available [facility] (Lab) [address] [place], [address], 03/25/2024 10:54:33 03/25/20 24 03/25/2024 CBC/C OMPLE TE BLD COUNT W/DIF F red cell distribution width 13.1 % 11.8-1 5.5 Not Available [facility] (Lab) [address] [place], [address], 03/25/2024 10:54:33 03/25/20 24 03/25/2024 CBC/C OMPLE TE BLD COUNT W/DIF F platelets 287 x10'3 /uL 150-40 0 Not Available [facility] (Lab) [address] [place], [address], 03/25/2024 10:54:33 03/25/20 24 03/25/2024 CBC/C OMPLE TE BLD COUNT W/DIF F mean platelet volume 10.2 fL 9.0-12 .4 Not Available [facility] (Lab) [address] [place], [address], 03/25/2024 10:54:33 03/25/20 24 03/25/2024 CBC/C OMPLE TE BLD COUNT W/DIF F neutrophils 46.1 % 39.0-7 2.0 Not Available [facility] (Lab) [address] [place], [address], 03/25/2024 10:54:33 03/25/20 24 03/25/2024 CBC/C OMPLE TE BLD COUNT W/DIF F lymphocytes 41.9 % 16.0-4 7.0 Not Available [facility] (Lab) [address] [place], [address], 03/25/2024 10:54:33 03/25/20 24 03/25/2024 CBC/C OMPLE TE BLD COUNT W/DIF F monocytes 8.3 % 5.0-12 .0 Not Available [facility] (Lab) [address] [place], [address], 03/25/2024 10:54:33 03/25/20 24 03/25/2024 CBC/C OMPLE TE BLD COUNT W/DIF F eosinophils 2.9 % 1.0-7. 0 Not Available [facility] (Lab) [address] [place], [address], 03/25/2024 10:54:33 03/25/20 24 03/25/2024 CBC/C OMPLE TE BLD COUNT W/DIF F basophils 0.6 % 0.0-2. 0 Not Available [facility] (Lab) [address] [place], [address], 03/25/2024 10:54:33 03/25/20 24 03/25/2024 CBC/C OMPLE TE BLD COUNT W/DIF F immature granulocytes 0.2 % 0.00-0 .50 Not Available [facility] (Lab) [address] [place], [address], 03/25/2024 10:54:33 03/25/20 24 03/25/2024 CBC/C OMPLE TE BLD COUNT W/DIF F neutrophils, absolute count 4.68 x10'3 /uL 1.5-8. 0 Not Available [facility] (Lab) [address] [place], [address], 03/25/2024 10:54:33 03/25/20 24 03/25/2024 CBC/C OMPLE TE BLD COUNT W/DIF F lymphocytes, absolute count 4.24 x10'3 /uL 1.07-3 .43 high Not Available [facility] (Lab) [address] [place], [address], 03/25/2024 10:54:33 03/25/20 24 03/25/2024 CBC/C OMPLE TE BLD COUNT W/DIF F monocytes, absolute count 0.84 x10'3 /uL 0.29-0 .99 Not Available [facility] (Lab) [address] [place], [address], 03/25/2024 10:54:33 03/25/20 24 03/25/2024 CBC/C OMPLE TE BLD COUNT W/DIF F eosinophils, absolute count 0.29 x10'3 /uL 0.02-0 .53 Not Available [facility] (Lab) [address] [place], [address], 03/25/2024 10:54:33 03/25/20 24 03/25/2024 CBC/C OMPLE TE BLD COUNT W/DIF F basophils, absolute count 0.06 x10'3 /uL 0.01-0 .08 Not Available [facility] (Lab) [address] [place], [address], 03/25/2024 10:54:33 03/25/20 24 03/25/2024 CBC/C OMPLE TE BLD COUNT W/DIF F immature granulocytes ,absolute 0.02 x10'3 /uL 0.00-0 .05 Not Available [facility] (Lab) [address] [place], [address], 03/25/2024 10:54:33 03/25/20 24 03/25/2024 CBC/C OMPLE TE BLD COUNT W/DIF F nucleated red blood cells 0.0 % -0 Not Available [facility] (Lab) [address] [place], [address], 03/25/2024 10:54:33 03/25/20 24 03/25/2024 CBC/C OMPLE TE BLD COUNT W/DIF F NRBC# 0.00 x10'3 /uL Not Available [facility] (Lab) [address] [place], [address], 03/25/2024 10:54:33 03/25/20 24 03/25/2024 LIPID PANEL cholesterol 175 mg/dL 140-19 9 NIH VICK NSUS RECOM MENDA TION FOR JENNY STERO L: ADULT CHILD LOW RISK: <200 <170 BORDE RLINE : <200- 239 ----- HIGH RISK: >240 >200 Not Available [facility] (Lab) [address] [place], [address], 03/25/2024 10:58:40 03/25/2003/25/2024 LIPID PANEL triglyceride s 89 mg/dL 0-150 NIH VICK NSUS REPOR T RECOM MENDA TION FOR TRIGL YCERI ROBBY: ADULT CHILD LOW RISK: <150 ----- BODER LINE: 150-1 99 ----- HIGH RISK: >200 ----- Not Available [facility] (Lab) [address] [place], [address], 03/25/2024 10:58:40 03/25/20 24 03/25/2024 LIPID PANEL HDL cholesterol 64 mg/dL 40- Not Available [facility] (Lab) [address] [place], [address], 03/25/2024 10:58:40 03/25/20 24 03/25/2024 LIPID PANEL LDL cholesterol, calculated 93 mg/dL 0-130 NIH VICK NSUS REPOR T RECOM MENDA TIONS FOR LDL: ADULT CHILD LOW RISK <130 <110 (OPTI MAL LDL) <100 ----- BORDE RLINE : 130-1 59 ----- HIGH RISK: >160 >130 A TRIGL YCERI DE RESUL T >400 INVAL IDATE S THE CALCU LATIO N FOR LDL FRACT IONAT ION - THE LDL RESUL T WILL NOT BE REPOR GERARDO. Not Available [facility] (Lab) [address] [place], [address], 03/25/2024 10:58:40 03/25/20 24 03/25/2024 COMPR EHENS DANTE METAB OLIC PANEL sodium 138 mmol/ L 137-14 5 Not Available [facility] (Lab) [address] [place], [address], 03/25/2024 10:58:46 03/25/20 24 03/25/2024 COMPR EHENS DANTE METAB OLIC PANEL potassium 4.5 mmol/ L 3.5-5. 1 Not Available [facility] (Lab) [address] [place], [address], 03/25/2024 10:58:46 03/25/20 24 03/25/2024 COMPR EHENS DANTE METAB OLIC PANEL chloride 106 mmol/ L 98-107 Not Available [facility] (Lab) [address] [place], [address], 03/25/2024 10:58:46 03/25/20 24 03/25/2024 COMPR EHENS DANTE METAB OLIC PANEL carbon dioxide 28 mmol/ L 22-30 Not Available [facility] (Lab) [address] [place], [address], 03/25/2024 10:58:46 03/25/20 24 03/25/2024 COMPR EHENS DANTE METAB OLIC PANEL anion gap 8.5 mmol/ L 14-22 low Not Available [facility] (Lab) [address] [place], [address], 03/25/2024 10:58:46 03/25/20 24 03/25/2024 COMPR EHENS DANTE METAB OLIC PANEL glucose 96 mg/dL 70-99 Not Available [facility] (Lab) [address] [place], [address], 03/25/2024 10:58:46 03/25/20 24 03/25/2024 COMPR EHENS DANTE METAB OLIC PANEL BUN 21 mg/dL 8-19 high Not Available [facility] (Lab) [address] [place], [address], 03/25/2024 10:58:46 03/25/20 24 03/25/2024 COMPR EHENS DANTE METAB OLIC PANEL creatinine 1.01 mg/dL 0.66-1 .25 Not Available [facility] (Lab) [address] [place], [address], 03/25/2024 10:58:46 03/25/20 24 03/25/2024 COMPR EHENS DANTE METAB OLIC PANEL GFR >60 Refer ence Range : [place] ge GFR Healt hy Adult : >60 mL/mi n/1.7 3 m2 Chron ic Kidne y Disea se: 15-60 mL/mi n/1.7 3 m2 Kidne y Failu re: <15/m L/min /1.73 m2 www.n iddk. nih.g ov The MDRD study equat ion has not been valid ated in child vipul <18 years of age; pregn ant women ; the elder ly >85 years of age; or in some racia l or ethni c subgr oups, such as Hispa nics. Outsi de the valid ated madhavi eters , estim ated GFR is less accur ate, requi ring clini veda judgm ent on a case- by-ca se basis . Clini veda inter preta tion for other races and ages must be made by the clini rachele. The MDRD study equat ion has not been valid ated for the evalu ation of serum creat inine relat ed to nutri [place] l statu s or medic ation usage . For perso ns <18 years of age, a pedia tric GFR calcu lator is avail able on the [facility] websi te: https ://luda w.mendel hernandez.o donald/pr ofess ional s/kdo qi/gf r_cal culat or Not Available [facility] (Lab) [address] [place], [address], 03/25/2024 10:58:46 03/25/20 24 03/25/2024 COMPR EHENS DANTE METAB OLIC PANEL alkaline phosphatase 84 U/L 38-126 Not Available [facility] (Lab) [address] [place], [address], 03/25/2024 10:58:46 03/25/20 24 03/25/2024 COMPR EHENS DANTE METAB OLIC PANEL alanine aminotransfe rase 25 U/L 0-50 Not Available [facility] (Lab) [address] [place], [address], 03/25/2024 10:58:46 03/25/20 24 03/25/2024 COMPR EHENS DANTE METAB OLIC PANEL aspartate aminotransfe rase 34 U/L 15-46 Not Available [facility] (Lab) [address] [place], [address], 03/25/2024 10:58:46 03/25/20 24 03/25/2024 COMPR EHENS DANTE METAB OLIC PANEL bilirubin, total 0.70 mg/dL 0.20-1 .30 Not Available [facility] (Lab) [address] [place], [address], 03/25/2024 10:58:46 03/25/20 24 03/25/2024 COMPR EHENS DANTE METAB OLIC PANEL calcium 9.5 mg/dL 8.4-10 .2 Not Available [facility] (Lab) [address] [place], [address], 03/25/2024 10:58:46 03/25/20 24 03/25/2024 COMPR EHENS DANTE METAB OLIC PANEL total protein 6.8 g/dL 6.3-8. 2 Not Available [facility] (Lab) [address] [place], [address], 03/25/2024 10:58:46 03/25/20 24 03/25/2024 COMPR EHENS DANTE METAB OLIC PANEL albumin 4.2 g/dL 3.0-4. 4 Not Available [facility] (Lab) [address] [place], [address], 03/25/2024 10:58:46 03/25/20 24 03/25/2024 COMPR EHENS DANTE METAB OLIC PANEL globulin 2.6 g/dL 2.6-4. 2 Not Available [facility] (Lab) [address] [place], [address], 03/25/2024 10:58:46 03/25/20 24 03/25/2024 COMPR EHENS DANTE METAB OLIC PANEL A/G ratio 1.6 ratio 1.0-2. 0 Not Available [facility] (Lab) [address] [place], [address], 03/25/2024 10:58:46 03/25/20 24 03/25/2024 MAGNE SIUM magnesium 1.9 mg/dL 1.6-2. 3 Not Available [facility] (Lab) [address] [place], [address], 03/25/2024 10:58:50 03/25/20 24 03/25/2024 VITAM IN B12 (GERMANIA LAURA ) vb12 903 pg/mL 239-93 1 Not Available [facility] (Lab) [address] [place], [address], 03/25/2024 11:50:09 09/29/20 24 09/29/2024 LIPID PANEL , STAND SHERRELL cholesterol, total 151 mg/dL <200 normal Not Available [address], [address], 09/29/2024 17:42:29 09/29/20 24 09/29/2024 LIPID PANEL , STAND SHERRELL HDL cholesterol 36 mg/dL > or = 40 low Not Available [address], [address], 09/29/2024 17:42:29 09/29/20 24 09/29/2024 LIPID PANEL , STAND SHERRELL triglyceride s 89 mg/dL <150 normal Not Available [address], [address], 09/29/2024 17:42:29 09/29/20 24 09/29/2024 LIPID PANEL , STAND SHERRELL LDL-choleste rol 97 mg/dL _(veda c) normal Refer ence range : <100 Lopez able range <100 mg/dL for prima ry preve ntion ; <70 mg/dL for patie nts with CHD or diabe tic patie nts with > or = 2 CHD risk facto rs. LDL-C is now calcu lated using the Mary n-Hop kins calcu latbeka n, which is a valid ated novel metho d amos gonzalez oliverio r accur acy than the Fried michelle equat ion in the estim ation of LDL-C . Mary arias SS et al. PARK. 2013; 310(1 9): 2061- 2068 (http ://ed ucati on.Jasmyn cadena Namelys. com/f aq/FA Q164) Not Available [address] [address] [place], [address], 09/29/2024 17:42:29 09/29/20 24 09/29/2024 LIPID PANEL , STAND SHERRELL chol/HDLC ratio 4.2 (calc ) <5.0 normal Not Available [address] [place], [address], 09/29/2024 17:42:29 09/29/20 24 09/29/2024 LIPID PANEL , STAND SHERRELL non HDL cholesterol 115 mg/dL _(veda c) <130 normal For patie nts with diabe presley plus 1 major ASCVD risk facto r, treat ing to a non-H DL-C goal of <100 mg/dL (LDL- C of <70 mg/dL ) is consi dered a thera peuti c optio n. Not Available [address] [place] [address] [facility] [place], [address], 09/29/2024 17:42:29 09/29/20 24 09/29/2024 COMPR EHENS DANTE METAB OLIC PANEL glucose 93 mg/dL 65-99 normal Fasti ng refer ence inter patrizia Not Available [address], [address], 09/29/2024 17:42:30 09/29/20 24 09/29/2024 COMPR EHENS DANTE METAB OLIC PANEL urea nitrogen (BUN) 24 mg/dL 7-25 normal Not Available [address], [address], 09/29/2024 17:42:30 09/29/20 24 09/29/2024 COMPR EHENS DANTE METAB OLIC PANEL creatinine 1.05 mg/dL 0.70-1 .35 normal Not Available [address], [address], 09/29/2024 17:42:30 09/29/20 24 09/29/2024 COMPR EHENS DANTE METAB OLIC PANEL eGFR 79 mL/mi n/1.7 3m2 > or = 60 normal Not Available [address], [address], 09/29/2024 17:42:30 09/29/20 24 09/29/2024 COMPR EHENS DANTE METAB OLIC PANEL BUN/creatini ne ratio SEE NOTE: (calc ) 6-22 Not Repor gerardo: BUN and Creat inine are withi n refer ence range . Not Available [address], [address], 09/29/2024 17:42:30 09/29/20 24 09/29/2024 COMPR EHENS DANTE METAB OLIC PANEL sodium 139 mmol/ L 135-14 6 normal Not Available [address], [address], 09/29/2024 17:42:30 09/29/20 24 09/29/2024 COMPR EHENS DANTE METAB OLIC PANEL potassium 4.8 mmol/ L 3.5-5. 3 normal Not Available [address], [address], 09/29/2024 17:42:30 09/29/20 24 09/29/2024 COMPR EHENS DANTE METAB OLIC PANEL chloride 104 mmol/ L 98-110 normal Not Available [address] [address] [place], [address], 09/29/2024 17:42:30 09/29/20 24 09/29/2024 COMPR EHENS DANTE METAB OLIC PANEL carbon dioxide 27 mmol/ L 20-32 normal Not Available [address], [address], 09/29/2024 17:42:30 09/29/20 24 09/29/2024 COMPR EHENS DANTE METAB OLIC PANEL calcium 9.4 mg/dL 8.6-10 .3 normal Not Available [address], [address], 09/29/2024 17:42:30 09/29/20 24 09/29/2024 COMPR EHENS DANTE METAB OLIC PANEL protein, total 7.1 g/dL 6.1-8. 1 normal Not Available [address], [address], 09/29/2024 17:42:30 09/29/20 24 09/29/2024 COMPR EHENS DANTE METAB OLIC PANEL albumin 4.3 g/dL 3.6-5. 1 normal Not Available [address], [address], 09/29/2024 17:42:30 09/29/20 24 09/29/2024 COMPR EHENS DANTE METAB OLIC PANEL globulin 2.8 g/dL_ (calc ) 1.9-3. 7 normal Not Available [address], [address], 09/29/2024 17:42:30 09/29/20 24 09/29/2024 COMPR EHENS DANTE METAB OLIC PANEL albumin/glob ulin ratio 1.5 (calc ) 1.0-2. 5 normal Not Available [address], [address], 09/29/2024 17:42:30 09/29/20 24 09/29/2024 COMPR EHENS DANTE METAB OLIC PANEL bilirubin, total 0.7 mg/dL 0.2-1. 2 normal Not Available [address], [address], 09/29/2024 17:42:30 09/29/20 24 09/29/2024 COMPR EHENS DANTE METAB OLIC PANEL alkaline phosphatase 80 U/L 35-144 normal Not Available [facility] [place] [address] [address] [place], [address], 09/29/2024 17:42:30 09/29/20 24 09/29/2024 COMPR EHENS DANTE METAB OLIC PANEL AST 18 U/L 10-35 normal Not Available [address], [address], 09/29/2024 17:42:30 09/29/20 24 09/29/2024 COMPR EHENS DANTE METAB OLIC PANEL ALT 21 U/L 9-46 normal Not Available [address], [address], 09/29/2024 17:42:30 09/29/20 24 09/29/2024 CBC (INCL UDES DIFF/ PLT) white blood cell count 6.3 thous and/u L 3.8-10 .8 normal Not Available [address], [address], 09/29/2024 17:42:32 09/29/20 24 09/29/2024 CBC (INCL UDES DIFF/ PLT) red blood cell count 4.29 velia on/uL 4.20-5 .80 normal Not Available [address], [address], 09/29/2024 17:42:32 09/29/20 24 09/29/2024 CBC (INCL UDES DIFF/ PLT) hemoglobin 14.1 g/dL 13.2-1 7.1 normal Not Available [address], [address], 09/29/2024 17:42:32 09/29/20 24 09/29/2024 CBC (INCL UDES DIFF/ PLT) hematocrit 41.7 % 38.5-5 0.0 normal Not Available [facility] [address], [address], 09/29/2024 17:42:32 09/29/20 24 09/29/2024 CBC (INCL UDES DIFF/ PLT) MCV 97.2 fL 80.0-1 00.0 normal Not Available [address], [address], 09/29/2024 17:42:32 09/29/20 24 09/29/2024 CBC (INCL UDES DIFF/ PLT) MCH 32.9 pg 27.0-3 3.0 normal Not Available [address], [address], 09/29/2024 17:42:32 09/29/20 24 09/29/2024 CBC (INCL UDES DIFF/ PLT) MCHC 33.8 g/dL 32.0-3 6.0 normal For adult s, a sligh t decre ase in the calcu lated MCHC value (in the range of 30 to 32 g/dL) is most likel y not clini esha signi fican t; reji er, it shoul d be inter prete d with cauti on in corre lat n with other red cell madhavi eters and the patie nt's clini veda condi tion. Not Available [address], [address], 09/29/2024 17:42:32 09/29/20 24 09/29/2024 CBC (INCL UDES DIFF/ PLT) RDW 12.4 % 11.0-1 5.0 normal Not Available [address], [address], 09/29/2024 17:42:32 09/29/20 24 09/29/2024 CBC (INCL UDES DIFF/ PLT) platelet count 287 thous and/u L 140-40 0 normal Not Available [address], [address], 09/29/2024 17:42:32 09/29/20 24 09/29/2024 CBC (INCL UDES DIFF/ PLT) MPV 10.0 fL 7.5-12 .5 normal Not Available [address], [address], 09/29/2024 17:42:32 09/29/20 24 09/29/2024 CBC (INCL UDES DIFF/ PLT) absolute neutrophils 3219 cells /uL 1500-7 800 normal Not Available [address], [address], 09/29/2024 17:42:32 09/29/20 24 09/29/2024 CBC (INCL UDES DIFF/ PLT) absolute lymphocytes 2174 cells /uL 850-39 00 normal Not Available [address], [address], 09/29/2024 17:42:32 09/29/20 24 09/29/2024 CBC (INCL UDES DIFF/ PLT) absolute monocytes 649 cells /uL 200-95 0 normal Not Available [address], [address], 09/29/2024 17:42:32 09/29/20 24 09/29/2024 CBC (INCL UDES DIFF/ PLT) absolute eosinophils 221 cells /uL 15-500 normal Not Available [address], [address], 09/29/2024 17:42:32 09/29/20 24 09/29/2024 CBC (INCL UDES DIFF/ PLT) absolute basophils 38 cells /uL 0-200 normal Not Available [address], [address], 09/29/2024 17:42:32 09/29/20 24 09/29/2024 CBC (INCL UDES DIFF/ PLT) neutrophils 51.1 % normal Not Available [address], [address], 09/29/2024 17:42:32 09/29/20 24 09/29/2024 CBC (INCL UDES DIFF/ PLT) lymphocytes 34.5 % normal Not Available [address], [address], 09/29/2024 17:42:32 09/29/20 24 09/29/2024 CBC (INCL UDES DIFF/ PLT) monocytes 10.3 % normal Not Available [address], [address], 09/29/2024 17:42:32 09/29/20 24 09/29/2024 CBC (INCL UDES DIFF/ PLT) eosinophils 3.5 % normal Not Available [address], [address], 09/29/2024 17:42:32 09/29/20 24 09/29/2024 CBC (INCL UDES DIFF/ PLT) basophils 0.6 % normal Not Available [address], [address], 09/29/2024 17:42:32 03/21/20 24 03/19/2024 polys omnog paola, titra tion study No observ ation record ed. BARCODE Not Available 2023 13:01:59 03/21/20 24 12/12/2023 home sleep study No observ ation record ed. BARCODE Not Available 2023 15:40:10 03/26/20 24 03/19/2024 sleep diary asses sment * No observ ation record ed. [email or web address] [facility] [address], [place], [address], 03/26/2024 14:05:45 05/29/20 24 05/08/2024 lab* No observ ation record ed. [email or web address] Not Available 2023 14:26:42 11/20/19 25 11/20/2024 XR, masto id(s) No observ ation record ed. [email or web address] [facility] [address], [place], [address], 11/20/2024 09:55:33 11/20/19 25 11/20/2024 CT, tempo ral bone, w/o contr ast No observ ation record ed. [address] [facility] [address], [place], [address], 11/24/2024 15:45:27 11/21/19 25 11/21/2024 CT, tempo ral bone, w/o contr ast No observ ation record ed. [address] [facility] [address], [place], [address], 11/24/2024 15:45:22 11/28/19 25 11/28/2024 MRI, hand, w/o contr ast No observ ation record ed. [address] [facility] [address], [place], [address], 11/29/2024 01:40:30 Result Notes None recorded. Problems Name Problem SNOMED Code Status Onset Date Resolution Date Notes Provider Name and Address Organization Details Recorded Time History of total knee arthroplas ty 0502881292042 Active 2021 Not Available [facility] 3 09:17:38 Hyperchole sterolemia 76300655 Active Not Available [facility] 3 09:17:38 Localized, primary osteoarthr itis of the pelvic region and thigh 872210666 Active Not Available [facility] 3 09:17:38 Gastroesop hageal reflux disease 724408574 Active Not Available [facility] 3 09:17:38 Osteoarthr itis of knee 406855583 Active 2017 Not Available [facility] 3 09:17:38 Rheumatoid arthritis 75193032 Active 2018 Not Available [facility] 3 09:17:38 Pulmonary emphysema 38551675 Active Not Available [facility] 3 09:17:38 Essential hypertensi on 92906067 Active 2022 Pamela Bae CMA null, [facility] 3 16:12:17 Obstructiv e sleep apnea syndrome 18913588 Active 2023 Jordin Calderon MD [address], [address], [place], [address] , [facility] 4 17:31:50 Periodic limb movement disorder 035565600 Active 2023 Clarence Squires MD [address], [address], [place], [address] , [facility] 4 08:54:54 Iron deficiency 34368408 Active 2023 Clarence Squires MD [address], [address], [place], [address] , [facility] 4 08:13:14 Acute bronchitis 18013551 Active 2023 Jordin Calderon MD [address], [address], [place], [address] , [facility] 4 11:29:47 Cyst of finger 795930008 Active 2023 Yi Talbot null, [facility] 4 18:07:18 Dermatophy tosis 17375020 Active 2023 Jordin Calderon MD [address], [address], [place], [address] , [facility] 4 12:52:07 Cholesteat bernadine of middle ear 94184521 Active 2024 Joselin Nunez RN null, [facility] 5 10:55:55 Notes:Medical History: Granu lomatous disease of chest 4 mm LLL pulm nodule Very severe OSAHS, AHI = 60, 12/12/23 Mild RVE Mild LAE Hypertension EF 65% Hyperlipidemia DOTTY Iron deficiency PLMD RA Procedure History: T&A 1963 Appendectomy 1974 Right meniscus repair 1996 Left meiscus repair 1997 Cholecystectomy 1998 Right knee arthroplasty 2018 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 Procedures Surgical History None recorded. Imaging Results Imaging Date Name Status LastModified by Organiz ation Details LastModified Time 03/19/2024 polysomnogram, titration study completed [facility] Information not available 03/21/2024 13:01:59 12/12/2023 home sleep study completed [facility] Information not available 03/21/2024 15:40:10 03/19/2024 sleep diary assessment* completed [address] [facility] [address], [place], [address], 03/26/2024 14:05:45 05/08/2024 lab* completed [place] [address] Information no t available 05/29/2024 14:26:42 11/20/2024 XR, mastoid(s) completed [address] [facility] [address], [place], [address], 11/20/2024 09:55:33 11/20/2024 CT, temporal bone, w/o contrast completed [id number] [facility] [address], [place], [address], 11/24/2024 15:45:27 11/21/2024 CT, temporal bone, w/o contrast completed [address] [facility] [address], [place], [address], 11/24/2024 15:45:22 11/28/2024 MRI, hand, w/o contrast completed [email or web address] [place] [address] Imaging [address], [place], [address], 11/29/2024 01:40:30 Procedure Notes None recorded. Medical Equipment None Reported. Allergies No known drug allergies Medications Name Sig Start Date Stop Date Status Note LastModified by Organization Details LastModified Time losartan 50 mg tablet TAKE 1 TABLET BY MOUTH EVERY DAY active Not Available Not Available No t Available cyclobenz aprine 10 mg tablet take one tablet by mouth 3 times a day as needed 2024 active Not Available Not Available Not Avai lable amoxicill in 500 mg capsule active Not Available Not Available Not Available Tylenol-C odeine #4 300 mg-60 mg tablet one four times a day 08/11 completed Not Available Not Available Not Available doxycycli ne hyclate 100 mg capsule 11/14 completed Not Available Not Available Not Available atorvasta tin 20 mg tablet TAKE 1 TABLET BY MOUTH EVERY DAY active Not Available Not Available No t Available sulfasala zine 500 mg tablet TAKE 2 TABLETS BY MOUTH TWICE A DAY AFTER MEALS 09/10 completed Not Available Not Available Not Available Vitamin C 500 mg tablet TAKE 1 TABLET BY MOUTH DAILY active Not Available Not Available No t Available ibuprofen 800 mg tablet one three times a day 02/02 completed Not Available Not Available Not Available benzonata te 200 mg capsule Take 1 capsule 3 times a day by oral route. 11/12 completed Not Available Not Available Not Available hydrocodo ne 5 mg-acetam inophen 325 mg tablet 08/09 completed Not Available Not Available Not Available meloxicam 15 mg tablet TAKE 1 TABLET BY MOUTH EVERY DAY 08/28 completed Not Available Not Available Not Available prednison e 5 mg tablet TAKE 1-3 TABS BY MOUTH DAILY FOR IMMEDIAT E ARTHRITI S CONTROL USE LOWEST DOSE NEEDED&S TOP WHEN BETTER 12/04 completed Not Available Not Available Not Available Zithromax Z-Castro 250 mg tablet Take 2 TABLET EVERY DAY by oral route for 1 day then one daily 11/12 completed Not Available Not Available Not Available leflunomi de 10 mg tablet TAKE 1 TABLET BY MOUTH EVERY DAY 08/28 completed Not Available Not Available Not Available acetamino phen 300 mg-codein e 30 mg tablet 02/02 completed Not Available Not Available Not Available omeprazol e 40 mg capsule,d elayed release TAKE 1 CAPSULE BY MOUTH EVERY DAY FOR HEART BURN PREVENTI ON active Not Available Not Available No t Available aspirin 81 mg tablet,de layed release Take 1 tablet every day by oral route. 09/10 completed Not Available Not Available Not Available tramadol 50 mg tablet TAKE 1-2 TABLETS BY MOUTH 3X A DAY NEEDED FOR SEVERE PAIN. *TAKE WITH OTC TYLENOL EXTRA STRENGTH * 03/19 completed Not Available Not Available Not Available Prevacid 30 mg capsule,d elayed release Take 1 capsule every day by oral route. 02/10 completed Not Available Not Available Not Available Celebrex 200 mg capsule Take 1 capsule twice a day by oral route for 30 days. 12/26 completed Not Available Not Available Not Available meloxicam 7.5 mg tablet Take 1 tablet every day by oral route. 08/29 completed Not Available Not Available Not Available methotrex ate sodium 2.5 mg tablet TAKE 4 TABLETS BY MOUTH IN THE MORNING AND 4 TABLETS IN THE EVENING EVERY 7 DAYS 02/26 completed Not Available Not Available Not Available baclofen 10 mg tablet Take 1 tablet 4 times a day by oral route. 02/28 completed Not Available Not Available Not Available cephalexi n 500 mg capsule TAKE 1 CAPSULE BY MOUTH EVERY 6 HOURS 03/19 completed Not Available Not Available Not Available ferrous sulfate 325 mg (65 mg iron) tablet TAKE 1 TABLET BY MOUTH EVERY DAY active Not Available Not Available No t Available clotrimaz ole-betam ethasone 1 %-0.05 % topical cream APPLY ON THE AFFECTED /SURROUN DING AREA(S) ON THE SKIN TWICE DAILY IN THE MORNING/ EVENING X2 WEEKS 12/04 completed Not Available Not Available Not Available gabapenti n 300 mg capsule TAKE 2 CAPSULES BY MOUTH ONCE DAILY AT BEDTIME FOR SLEEP 03/19 completed Not Available Not Available Not Available diclofena c sodium 75 mg tablet,de layed release TAKE 1 TABLET BY MOUTH TWICE A DAY NEEDED 08/28 completed Not Available Not Available Not Available folic acid 1 mg tablet TAKE 1 TABLET BY MOUTH EVERY DAY 09/10 completed Not Available Not Available Not Available amoxicill in 250 mg capsule TAKE 1 CAPSULE BY MOUTH EVERY 8 HOURS UNTIL FINISHED 06/30 completed Not Available Not Available Not Available mupirocin 2 % topical ointment 08/09 completed Not Available Not Available Not Available polyethyl marcelino glycol 3350 17 gram/dose oral powder 12/26 completed Not Available Not Available Not Available [place] 7.5 mg-325 mg tablet Take 1 tablet every 6 hours by oral route. 08/11 completed Last Name First Name Street Address City State Zip Date of Date Filled Label Name Strength Metric Qty/Days Supply Payment Type ? Pharmacy Name/ [facility] [place] [address] [phone] 04/22/2019 HYDROCOD ONE BITARTRA TE-ACETA MINOPHEN 325 MG-7.5 MG 60/15 Ins[facility] JORDIN CALDERON [address] [phone] HYDROCOD ONE BITARTRA TE-ACETA MINOPHEN 325 MG-7.5 MG 28/7 [facility] [place] JORDIN CALDERON [address] [phone] 9 ACETAMIN OPHEN-CO DEINE 300MG-60 MG 120/30 Ins[facility] [place] JORDIN CALDERON [address] [phone] 9 ACETAMIN OPHEN-CO DEINE 300MG-60 MG 120/30 Insuranc e [facility] [place] JORDIN CALDERON [address] [phone] 8 ACETAMIN OPHEN-CO DEINE 300MG-60 MG 120/30 Insuranc e [facility] JORDIN CALDERON g page 1 of 1 [id number] mber of Searches This Month: 5. Prescrip tion Monitori ng Program. All rights reserved . Not Available Not Available Not Available methylpre dnisolone 4 mg tablets in a dose pack TAKE 6 TABLETS ON DAY 1 DIRECTED ON PACKAGE AND DECREASE BY 1 TAB EACH DAY FOR A TOTAL OF 6 DAYS 08/28 completed Not Available Not Available Not Available celecoxib 100 mg capsule 11/14 completed Not Available Not Available Not Available Tylenol Extra Strength 500 mg tablet Take 2 tablets every 6 hours by oral route. 03/19 completed Not Available Not Available Not Available oxycodone 5 mg tablet Take 1 tablet every 4 hours by oral route. active Not Available Not Available No t Available cholecalc iferol (vitamin D3) 25 mcg (1,000 unit) capsule TAKE 1 CAPSULE BY MOUTH EVERY DAY 03/19 completed Not Available Not Available Not Available Asprin Ec Low Dose 81 mg tablet,de layed release Take 1 tablet every day by oral route. 08/09 completed Not Available Not Available Not Available Humira 40 mg/0.8 mL subcutane ous syringe kit Inject 0.8 mL every 2 weeks by subcutan eous route. 02/26 completed Not Available Not Available Not Available Ciprodex 0.3 %-0.1 % ear drops,chris pension INSTILL 4 DROPS INTO AFFECTED EAR(S) BY OTIC ROUTE 2 TIMES PER DAY FOR 7 DAYS 12/04 completed Not Available Not Available Not Available Multivita min 50 Plus tablet Take 1 tablet every day by oral route. 03/20 completed Not Available Not Available Not Available Enbrel 50 mg/mL (1 mL) subcutane ous syringe Inject 1 mL every week by subcutan eous route. 12/04 completed Not Available Not Available Not Available folic acid 08/29 completed Not Available Not Available Not Available methotrex ate 4 tablets in the morning and 4 tablets in the evening on Mondays completed Not Available Not Available Not Available Tylenol 500 mg 08/28 completed Not Available Not Available Not Available David Aspirin 81 mg qd 08/11 completed Not Available Not Available Not Available gabapenti n 300 mg 08/29 completed Not Available Not Available Not Available Centrum 08/28 completed Not Available Not Available Not Available Enbrel SureClick 50 mg/mL (1 mL) subcutane ous pen injector active Not Available Not Available Not Available oxycodone 10 mg tablet Take 1 tablet every 4 hours by oral route. active Not Available Not Available No t Available Senexon-S 8.6 mg-50 mg tablet 12/26 completed Not Available Not Available Not Available Suprep Bowel Prep Kit 17.5 gram-3.13 gram-1.6 gram oral solution 02/02 completed Not Available Not Available Not Available Eliquis 2.5 mg tablet active Not Available Not Available Not Available Humira 10 mg/0.2 mL subcutane ous syringe kit Inject by subcutan eous route. 05/13 completed Not Available Not Available Not Available OxyContin 10 mg tablet,cr ush resistant ,extended release Take 1 tablet every 12 hours by oral route. 12/26 completed Not Available Not Available Not Available Men 50 Plus Multivita min 03/25 completed Not Available Not Available Not Available Humira(CF ) Pen 40 mg/0.4 mL subcutane ous kit 02/26 completed Not Available Not Available Not Available Emergen-C 500 mg chewable tablet Take 1 tablet every day by oral route. 09/10 completed Not Available Not Available Not Available Vitals Date Recorded Body height Body mass index (BMI) Body weight Body temperature Systolic blood pressure Diastolic blood pressure Provider Name and Address Organization Details Last Updated DateTime 4 180.34 cm 27.3 kg/m2 72187.1 g 97.8 [degF] 120 mm[Hg] 74 mm[Hg] Latha Zamarripa CMA [employer] 4 08:28:45 Date Recorded Heart rate Respiratory rate Oxygen saturation Oxygen saturation in Arterial blood by Pulse oximetry Heart rate Provider Name and Address Organization Details Last Updated DateTime 4 69 /min 15 /min 97 % 97 % 69 /min Clarence Squires MD [address] [facility], [facility] [address], [place], [address], [employer] 4 09:03:15 Date Recorded Body height Body mass index (BMI) Body weight Heart rate Oxygen saturation Oxygen saturation in Arterial blood by Pulse oximetry Body temperature Systolic blood pressure Diastolic blood pressure Provider Name and Address Organization Details Last Updated DateTime 4 180.34 cm 27.1 kg/m2 07451.9 2 g 74 /min 96 % 96 % 98.3 [degF] 120 mm[Hg] 80 mm[Hg] Latha Zamarripa CMA [employer] 08:32:28 Date Recorded Heart rate Respiratory rate Provider Quintin bautista and Address Organization Details Last Updated DateTime 04/15/2024 74 /min 14 /min Clarence Squires MD [address], [address], [facility] [employer] [facility] 04/15/2024 08:37:26 Date Recorded Body height Body mass index (BMI) Body weight Heart rate Oxygen saturation Oxygen saturation in Arterial blood by Pulse oximetry Body temperature Systolic blood pressure Diastolic blood pressure Provider Name and Address Organization Details Last Updated DateTime 180.34 cm 27.8 kg/m2 79351.8 8 g 82 /min 97 % 97 % 97.9 [degF] 116 mm[Hg] 80 mm[Hg] Naz Anaya MA [facility] [employer] [facility] 10:27:17 Date Recorded Heart rate Respiratory rate Provider Quintin bautista and Address Organization Details Last Updated DateTime 06/30/2024 82 /min 15 /min Clarence Squires MD [address] [facility] [address], [place], [address], [facility] [employer] [facility] 06/30/2024 10:48:46 Date Recorded Body height Body mass index (BMI) Body weight Heart rate Body temperature Oxygen saturation Oxygen saturation in Arterial blood by Pulse oximetry Systolic blood pressure Diastolic blood pressure Provider Name and Address Organization Details Last Updated DateTime 180.34 cm 28.7 kg/m2 31946.2 3 g 57 /min 97 [degF] 97 % 97 % 130 mm[Hg] 86 mm[Hg] DONTAE Nur [facility] [employer] [place] [facility] 4 11:33:49 Date Recorded Body height Body mass index (BMI) Body weight Body temperature Provider Name and Address Organization Details Last Updated DateTime 11/12/2024 180.34 cm 27.9 kg/m2 70428.47 g 98.2 [degF] Joselin Nunez RN [facility] [employer] [place] [employer] [facility] 11/12/2024 10:24:22 Social History Question Answer Notes LastModified by Organizat ion Details LastModified Time Tobacco Smoking Status Never Smoker Not Available [employer] 12/20/2022 09:14:44 What Is Your Level Of Alcohol Consumption? Occasional [id number] Information not available 12/20/2022 What Is Your Level Of Caffeine Consumption? Moderate Information not available 06/30/2024 In The 14 Days Before Symptom Onset, Have You Had Close Contact With A Laboratory-confi rmed COVID-19 While That Case Was Ill? No [id number] Information not available 12/20/2022 In The 14 Days Before Symptom Onset, Have You Had Close Contact With A Person Who Is Under Investigation For COVID-19 While That Person Was Ill? No [id number] Information not available 12/20/2022 Are You Currently Employed? Yes Information not available 06/30/2024 What Type Of Diet Are You Following? REGULAR Information not available 06/30/2024 Which Illicit Or Recreational Drugs Have You Used? Marijuana Information not available 06/30/2024 Do You Have An Electrostatic Air Filter? No Information not available 06/30/2024 What Is Your Occupation? [employer] Information not available 06/30/2024 Do You Have A Humidifier? No Information not available 06/30/2024 Do You Have Moisture Problems In Your Home? No Information not available 06/30/2024 What Was The Date Of Your Most Recent Tobacco Screening? 06/30/2024 Information not available 06/30/2024 Do You Have Any Pets? No Information not available 06/30/2024 Do You Use Your Seat Belt Or Car Seat Routinely? Yes Information not available 06/30/2024 Do You Have Smoke And Carbon Monoxide Detectors In Your Home? Yes Information not available 06/30/2024 Are You Passively Exposed To Smoke? No Information not available 06/30/2024 Do You Feel Stressed (tense, Restless, Nervous, Or Anxious, Or Unable To Sleep At Night)? [id number] Information not available 06/30/2024 Do You Use Any Illicit Or Recreational Drugs? Yes Information not available 06/30/2024 Do You Use Sunscreen Routinely? No When He Remembers Information not available 06/30/2024 Have You Recently Traveled Abroad? No [id number] Information not available 12/20/2022 Do You Have Any Dietary Restrictions? No Information not available 06/30/2024 Sex: Unknown Functional Status Question Answer Note LastModified by Organization D etails LastModified Time What is your exercise level? Moderate Information not available 06/30/2024 Mental Status None recorded. Family History Relationship Description Onset Age of this Age Resolved Age Notes LastModified by Organization Details LastModified Time Father Heart disease [id number] Not available 12/20/2022 09:15:06 Brother Heart disease [id number] Not available 12/20/2022 09:15:06 Brother Diabetes mellitus [id number] Not available 12/20/2022 09:15:06 Sister Diabetes mellitus [id number] Not available 12/20/2022 09:15:06 Mother Rheumatoid arthritis [email or web address] Not available 2023 08:42:44 Father Congestive heart failure [email or web address] Not available 2023 08:43:19 Paternal Grandfather Malignant tumor of prostate [email or web address] Not available 2023 08:43:27 Notes:NO ENT Medical History Condition Response BLINDNESS N KIDNEY STONES N MRSA N CARPAL TUNNEL SYNDROME N LUNG DISEASE/DISORDER N HISTORY OF DRUG ABUSE N RADIATION / CHEMOTHERAPY N COPD N SPORTS INJURY N ANKLE PAIN N BLOOD DISEASES N SCHIZOPHRENIA N SHINGLES N SHOULDER PAIN N BOWEL PROBLEMS N DEPRESSION (INCLUDING POST ) N STROKE/TIA N ULCERS N KNEE PAIN N BENIGN PROSTATIC HYPERPLASIA N OBESITY N GERD/NAUSEA N ANEURYSM N URINARY/BLADDER/KIDNEY PROBLEMS N CORONARY ARTERY DISEASE (CAD) N ADDICTION CONCERNS N USE OF BLOOD THINNERS N SKIN PROBLEMS N EMPHYSEMA N MUSCLE,JOINT OR BONE PROBLEMS N DVT N STOMACH ULCERS N BLOOD CLOTS N USE OF NSAIDS N CONCUSSION OR SPINAL TRAUMA N NEUROPATHY N AIDS/HIV N FRACTURES N HYPERTENSION N ELBOW PAIN N TOURETTE'S N Metal allergy N ANXIETY DISORDER N BLOOD TRANSFUSION N ANEMIA/BLOOD DISORDER N BIPOLAR DISORDER N BRONCHITIS N OSTEOARTHRITIS N TUBERCULOSIS N FOOT PROBLEM N HEART VALVE DISORDERS N ALLERGIES/HAYFEVER N SOFT TISSUE INJURY N INFECTIOUS DISEASE N HEART ARRHYTHMIA N INSOMNIA N HIGH CHOLESTEROL / HYPERLIPIDEMIA N RHEUMATOID ARTHRITIS N EDEMA N CHRONIC PAIN SYNDROME N CAROTID BLOCKAGE N BACK / NECK PROBLEMS N HAVE YOU BEEN HOSPITALIZED OR SEEN IN [facility] IN THE PAST YEAR ? N BURSITIS N HERNIATED DISC N DIALYSIS N FIBROMYALGIA N OSTEOPOROSIS N ARTHRITIS Y NO SIGNIFICANT PAST MEDICAL HISTORY N PERIPHERAL NEUROPATHY N DIABETES, TYPE N HEARTBURN / REFLUX N HEPATITIS / LIVER DISEASE N GOUT N ALZHEIMER'S DISEASE N SLEEP DISORDER N HERPES N HEADACHES/MIGRAINES N SEIZURES/EPILEPSY N VASCULAR DISEASE N Blood Disorder N HIP PAIN N DIZZINESS N HEAD TRAUMA OR INJURY N HEART DISEASE/HEART PROBLEMS N MULTIPLE SCLEROSIS N CANCER: SPECIFY N CARDIAC ARRHYTHMIA N ANESTHESIA COMPLICATIONS N ATRIAL FIBRILLATION N AUTOIMMUNE DISEASE N Immunizations Vaccine Type Date Status Note Provider Nam e and Address Organization Details Recorded Time Tdap 02/27/2018 completed Not Available [employer] 12/20/2022 09:21:04 Past Encounters Encounter ID Performer Location Encounter Start Date Encounter Closed Date Diagnosis/Indication Diagnosis SNOMED-CT Code Diagnosis ICD10 Code Diagnosis Note [id number] [facility] [address] [place] [address] 02/28/2021 00:00:00 02/28/2021 10:23:02 [id number] [facility] [address] [place] [address] 08/29/2021 00:00:00 08/29/2021 10:30:38 [id number] [facility] [place] [address] [facility] [address] [place] [address] 09/14/2021 00:00:00 09/14/2021 12:34:13 [id number] [facility] [place] [address] [facility] [address] [place] [address] 09/21/2021 00:00:00 09/21/2021 16:30:53 [id number] [facility] [address] [place] [address] 10/13/2021 00:00:00 10/16/2021 17:13:49 [id number] [facility] [place] [address] [facility] [address] [place] [address] 10/28/2021 00:00:00 11/01/2021 20:15:52 [id number] [facility] [place] [address] [facility] [address] [place] [address] 11/14/2021 00:00:00 11/20/2021 17:08:42 [id number] [facility] [place] [address] [place] [address] 11/28/2021 00:00:00 11/28/2021 15:23:51 [id number] [facility] [place] [address] [place] [address] 12/26/2021 00:00:00 12/26/2021 16:49:41 [id number] [facility] [address] [address] 02/27/2022 00:00:00 02/27/2022 10:42:19 [id number] [facility] [address] [address] 08/28/2022 00:00:00 08/28/2022 10:59:12 [id number] Jordin Calderon MD [facility] Internal [facility] [address] [address] 02/26/2023 10:47:57 02/26/2023 11:17:02 Adult health examination 034011372 Z00.00 Depression screening 171 907524 Z13.31 Gastroesop hageal reflux disease 290155600 K21.9 Rheumatoid arthritis 698 15094 M06.9 Hypercholesterolemia 136 25767 E78.00 [id number] Jordin Calderon MD [facility] [address] [address] 09/10/2023 11:00:55 09/10/2023 12:15:10 Hypercholesterolemia 36232895 E78.00 Rheumatoid arthritis 698 57143 M06.9 Gastroesop hageal reflux disease 780164618 K21.9 Disorder of prostate 302 40173 N42.9 [id number] Jordin Calderon MD [facility] [address] [address] 03/19/2024 11:28:22 03/19/2024 11:55:07 Essential hypertension 48620724 I10 Hypercholesterolemia 136 05644 E78.00 Gastroesop hageal reflux disease 979274862 K21.9 Obstructiv e sleep apnea syndrome 74186559 G47.33 Rheumatoid arthritis 698 14590 M06.9 [id number] [facility] Squires 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 D50.8 E83.42 [id number] Clarence Squires [place] [address] 0 04/15/2024 08:08:27 04/16/2024 08:19:16 Obstructive sleep apnea syndrome 75061127 G47.33 Iron deficiency 04978234 E61.1 [id number] Clarence Squires MD [facility] [address] [place] [address] 0 06/30/2024 09:51:36 07/01/2024 15:27:29 Obstructive sleep apnea syndrome 29462361 G47.33 Iron deficiency 06187687 E61.1 [id number] Jordin Calderon MD S_G Internal Med [facility] [address] [place] [address] 0 09/17/2024 11:20:41 09/17/2024 11:53:50 Essential hypertension 49534625 I10 Rheumatoid arthritis 698 76217 M06.9 Hypercholesterolemia 136 06967 E78.00 Gastroesop hageal reflux disease 941738968 K21.9 [id number] NAGI Fortune [facility] [place] [address] [place] [address] 11/12/2024 10:08:49 11/12/2024 11:03:51 Cholesteatoma of middle ear 06584871 H71.90 Health Concerns Section Related Observation LastModified by Organization Detai ls LastModified Time None Recorded Concern Status LastModified by Organization Details LastModified Time None Recorded Advance Directives Directive None Recorded Payers Encounter Date Sequence Insurance Name Policy Number Policy Vela Covered Member ID Vela Member ID Guarantor Name 03/25/2024 1 [facility] [employer] [id number] Kenneth Lai [id number] Kenneth Lai 04/15/2024 1 [facility] [employer] [id number] Kenneth L Lai [id number] Kenneth Lai 06/30/2024 1 [facility] [employer] [id number] Kenneth Cat Lai [id number] Kenneth Lai 09/17/2024 1 [facility] [employer] [id number] Kenneth L Lai [id number] Kenneth Lai 11/12/2024 1 [facility] [employer] [id number] Kenneth L Lai [id number] Kenneth Lai Notes Date Note Type Note Provider Name and Address Organization Details Recorded Time 03/25/2024 text/html Primary care/Ref erring provider: Jordin Calderon MD; Sheyla Bond MD During the [facility] home sleep study on 12/12/23, AHI = 60. During the [facility] titration sleep study on 03/19/24, sleep onset = 3.5 minutes, REM onset = 116 minutes, PLMI = 39. At home since, the patient uses a ResMed AirSense 11 autoset unit Respironics Dream Station Auto A-flex unit with heated humidification. The patient does not need the ramp to start low and go up slowly on the pressure anymore. There is no xerostomia in a.m. There is no hose/mask condensation with water. The patient wears a ResMed medium AirFit F20 full face mask without chin strap. There is no claustrophobia, no nostril/nose bridge irritation, no facial rash, no facial numbness, no nosebleeding. The patient feels more refreshed upon waking and daytime alertness is improved. Energy levels are sustained for the remainder of the day. At home, the patient sleeps from 9:30 pm to 5 am and wakes up without an alarm. Snoring: heavy, since . Snorting: yes Choking: yes Coughing: no Gasping: no Gagging: no Sighing: no Witnessed apnea: yes Twitching or jerking of leg(s), arm(s), body, head: yes Teeth grinding: no Teeth clenching: no Sleeptalking: no Sleepwalking: no Sleep crying: no Bedwetting: no Tongue/lip/gum/cheek biting: no Sleeping with open mouth: yes Sleep paralysis: no Hypnagogic hallucinations: no Hypnopompic hallucinations: no Vivid dreams: no Difficulty with sleep onset: no Difficulty with sleep maintenance: yes Sleep interruptions: nocturia x 2 Patient wakes up with: fatigue, xerostomia, mobility impairment Daytime cataplexy: no Morning hypersomnolence: no Afternoon hypersomnolence: yes Caffeine sources in diet: coffee 2 cups per day, tea 1/2 glass per day, soda 1 bottle per week, chocolate 1/3 candy bar per day Associated medical and psychiatric conditions: Congestive heart failure: no Coronary artery disease: no Myocardial infarction: no Hypertension: yes Stroke: no Bronchial asthma: no Chronic obstructive pulmonary disease: no Depression: no Bipolar disorder: no Anxiety: no Panic disorder: no Posttraumatic stress disorder: no Attention deficit and hyperactivity disorder: no Obsessive Compulsive disorder: no Schizophrenia: no Schizoaffective disorder: no Personality disorder: no Chronic analgesic use: no Chronic sedative/hypnotic use: no EPWORTH SLEEPINESS SCALE (ESS) CHANCE OF DOZING SCORE 0 = would never doze 1 = slight chance of dozing 2 = moderate chance of dozing 3 = high chance of dozing SITUATION AND CHANCE OF DOZING Sitting and reading - 1 Watching television - 1 Sitting inactive in a public place (e.g. a theater or meeting) - 1 As a passenger in a car for an hour without a break - 2 Lying down to rest in the afternoon when circumstances permit - 2 Sitting and talking to someone - 0 Sitting quietly after lunch without alcohol - 1 In a car, while stopped for a few minutes in the traffic - 0 TOTAL SCORE 8 Subjectively, patient has a slight chance of dozing. Clarence Squires MD [address] [place] [address], [phone], [place] - [facility] [employer] 03/25/2024 09:03:25 04/15/2024 text/html Primary care/Ref erring provider: Jordin Calderon MD; Sheyla Bond MD During the [facility] home sleep study on 12/12/23, AHI = 60.During the [facility] titration sleep study on 03/19/24, sleep onset = 3.5 minutes, REM onset = 116 minutes. PLMI = 39 and he is here to go over his lab workup. At homes since 04/10/24, the patient uses a ResMed AirSense 11 autoset unit with heated humidification. The patient does not need the ramp to start low and go up slowly on the pressure anymore. There is no xerostomia in a.m. There is no hose/mask condensation with water.The patient wears a ResMed medium AirFit F30 full face mask without chin strap. There is no claustrophobia, no nostril/nose bridge irritation, no facial rash, no facial numbness, no nosebleeding. The patient feels more refreshed upon waking and daytime alertness is improved. Energy levels are sustained until mid afternoon, around 4 pm. At home, the patient sleeps from 9:30 pm to 5 am and wakes up without an alarm. Snoring: heavy, since .Snorting: yesChoking: yesCoughing: noGasping: noGagging: noSighing: noWitnessed apnea: yesTwitching or jerking of leg(s), arm(s), body, head: yesTeeth grinding: noTeeth clenching: noSleeptalking: noSleepwalking: noSleep crying: noBedwetting: noTongue/lip/gum/cheek biting: noSleeping with open mouth: yesSleep paralysis: noHypnagogic hallucinations: noHypnopompic hallucinations: noVivid dreams: noDifficulty with sleep onset: noDifficulty with sleep maintenance: yesSleep interruptions: nocturia x 2Patient wakes up with: fatigue, xerostomia, mobility impairmentDaytime cataplexy: noMorning hypersomnolence: noAfternoon hypersomnolence: yesCaffeine sources in diet: coffee 2 cups per day, tea 1/2 glass per day, soda 1 bottle per week, chocolate 1/3 candy bar per day Associated medical and psychiatric conditions:Congestive heart failure: noCoronary artery disease: noMyocardial infarction: noHypertension: yesStroke: noBronchial asthma: noChronic obstructive pulmonary disease: noDepression: noBipolar disorder: noAnxiety: noPanic disorder: noPosttraumatic stress disorder: noAttention deficit and hyperactivity disorder: noObsessive Compulsive disorder: noSchizophrenia: noSchizoaffective disorder: noPersonality disorder: noChronic analgesic use: noChronic sedative/hypnotic use: no EPWORTH SLEEPINESS SCALE (ESS) CHANCE OF DOZING SCORE0 = would never doze1 = slight chance of dozing2 = moderate chance of dozing3 = high chance of dozing SITUATION AND CHANCE OF DOZINGSitting and reading - 1Watching television - 1Sitting inactive in a public place (e.g. a theater or meeting) - 1As a passenger in a car for an hour without a break - 1Lying down to rest in the afternoon when circumstances permit - 1Sitting and talking to someone - 0Sitting quietly after lunch without alcohol - 1In a car, while stopped for a few minutes in the traffic - 0TOTAL SCORE 6Subjectively, patient has a slight chance of dozing. Clarence Squires MD [address] [place] [address], [phone], [facility] 04/15/2024 08:54:08 06/30/2024 text/html Primary care/Ref erring provider: Jordin Calderon MD; Sheyla Bond MD During the [facility] home sleep study on 12/12/23, AHI = 60.During the [facility] titration sleep study on 03/19/24, sleep onset = 3.5 minutes, REM onset = 116 minutes. PLMI = 39 and he is on iron supplements. At homes since 04/15/24, the patient uses a ResMed AirSense 11 autoset unit with heated humidification. The patient does not need the ramp to start low and go up slowly on the pressure anymore. There is no xerostomia in a.m. There is no hose/mask condensation with water.The patient wears a ResMed medium AirFit F30 full face mask without chin strap. There is no claustrophobia, no nostril/nose bridge irritation, no facial rash, no facial numbness, no nosebleeding. The patient feels more refreshed upon waking and daytime alertness is improved. Energy levels are sustained until mid afternoon, around 4 pm. At home, the patient sleeps from 9:30 pm to 5 am and wakes up without an alarm. Snoring: heavy, since .Snorting: yesChoking: yesCoughing: noGasping: noGagging: noSighing: noWitnessed apnea: yesTwitching or jerking of leg(s), arm(s), body, head: yesTeeth grinding: noTeeth clenching: noSleeptalking: noSleepwalking: noSleep crying: noBedwetting: noTongue/lip/gum/cheek biting: noSleeping with open mouth: yesSleep paralysis: noHypnagogic hallucinations: noHypnopompic hallucinations: noVivid dreams: noDifficulty with sleep onset: noDifficulty with sleep maintenance: yesSleep interruptions: nocturia x 2Patient wakes up with: fatigue, xerostomia, mobility impairmentDaytime cataplexy: noMorning hypersomnolence: noAfternoon hypersomnolence: yesCaffeine sources in diet: coffee 2 cups per day, tea 1/2 glass per day, soda 1 bottle per week, chocolate 1/3 candy bar per day Associated medical and psychiatric conditions:Congestive heart failure: noCoronary artery disease: noMyocardial infarction: noHypertension: yesStroke: noBronchial asthma: noChronic obstructive pulmonary disease: noDepression: noBipolar disorder: noAnxiety: noPanic disorder: noPosttraumatic stress disorder: noAttention deficit and hyperactivity disorder: noObsessive Compulsive disorder: noSchizophrenia: noSchizoaffective disorder: noPersonality disorder: noChronic analgesic use: noChronic sedative/hypnotic use: no EPWORTH SLEEPINESS SCALE (ESS) CHANCE OF DOZING SCORE0 = would never doze1 = slight chance of dozing2 = moderate chance of dozing3 = high chance of dozing SITUATION AND CHANCE OF DOZINGSitting and reading - 1Watching television - 1Sitting inactive in a public place (e.g. a theater or meeting) - 0As a passenger in a car for an hour without a break - 1Lying down to rest in the afternoon when circumstances permit - 0Sitting and talking to someone - 0Sitting quietly after lunch without alcohol - 0In a car, while stopped for a few minutes in the traffic - 0TOTAL SCORE 3Subjectively, patient has a slight chance of dozing. Clarence Squires MD [address] [facility], [facility] [address], [place], [address], [facility] [email or web address] 06/30/2024 10:55:35 09/17/2024 text/html Patient Name: Raffi Masseyte Of Service: Sunday ( 09.17.2024 ): 1960 Age: 64 There has been approximately a 11.5 lb weight gain since 03/19/2024. This represents approximately a 5.9% change in weight. Weight change attributable to lifestyle changes. Vital Signs:Blood Pressure: Sitting Rt. Arm 130/86Pulse: Sitting 57 /min and RegularRespiratory Rate: 16Height 71 in or 1.8 mWeight 205.5 lb or 93.2 kgBMI 28.7Temperature: 97 F or 36.1 CPulse Oximetry: 97 % at rest on no oxygen Chief Complaint: Addressed in HPI Problems or conditions discussed in the HPI were the only ones reviewed during the encounter.Only social and family history addressed in the HPI were reviewed during this encounter. Attendant(s): NoneConstitutional and Systemic Symptoms:none Medication Reconciliation: from medication list. Hdpouvqssrm15/19/2022: Pharmacological stress test nd echocardiogram demonstrated normal sinus rhythm with some nonspecific ST-T abnormalities. Normal perfusion study with no evidence of any scar or perfusion defects. Ejection fraction estimated at 67%. Echocardiogram demonstrated normal ejection fraction with no evidence of any wall motion abnormalities. History of Present Illness #1. Essential Hypertension: Stage: Stage I Interval Neurological Complaints no headaches, dizziness, weakness, visual changes, ataxia, aphasia and apraxia. No shortness of breath, orthopnea or cardiovascular symptoms. No other symptoms related to end organ damage. Pressure has been under excellent control. Currently normal. No other end organ symptoms or findings. Therapy reviewed regarding management of hypertension and includes salt restriction and Losartan Potassium. #2. Type II Hypercholesterolaemia: Currently taking medication and tolerating well. No interval complaints of any muscle pain or arthralgia. No significant liver changes with medications. Last lipid panel: excellent control. Therapy reviewed regarding treatment of cholesterol management and include diet and Atorvastatin Calcium. #3. Hx of rheumatoid arthritis. Currently stable. No additional joint swelling or deformities noted. Synovial thickening as noted below. Physical activity status unchanged. Followed by Complaint Investigations Officer: Yes. Tolerating medications well. Medications currently consistent of Enbrel. #4. Hx of esophageal reflux currently stable. Hx of Complications: none The severity, duration and intensity of symptoms have improved. Frequency: most meals Treatment consists medications taken on intermittent basis. Current therapy includes Omeprazole. There has been no nausea, eructation, vomiting, hematemesis, dysphagia, velopharyngeal insufficiency and odynophagia. No change in he frequency or intensity of symptoms. Has had no melena. Has had no . Discussed use of H2 antagonists and the possibility of trying to reduce the frequency of the use of any PPI inhibitors and try H2 antagonists to see if symptoms can be controlled with lease intensive therapy since a number of complications are associated with chronic prolonged use of PPI inhibitors. Active Medication ListMultivitamin Once DailyPrednisone 5 MG TABLET Once DailyEnbrel 50 MG/ML SOLUTION As DirectedOmeprazole 40 MG CAPSULE, DELAYED RELEASE DailyAtorvastatin Calcium 20 MG (TABLET - ORAL) One DailyVitamin C Emergen C DailyLosartan Potassium 50 MG TABLET QdFerrous Sulfate 325 MG TABLET Three Times Week Surgical [id number] Rt. [id number] Lap [id number] Lt. Knee [id number] Rt. Knee [id number] Appendectomy Preventative Testing( ) 03/25/2024 Albumin 4.2 G/DL( ) 09/25/2023 PSA 0.62 NG/ML N 09/25/2025(X) 03/14/2023 LDCT 03/14/2024( ) 04/10/2022 Colonoscopy ( 5 Years ) 04/10/2027( ) 03/14/2019 CT Thorax(X) 08/10/2006 Upper Endoscopy 08/10/2011 Social HistorySOCIAL HISTORY:Smoking Hx: 1.5 of cigarettes per day for 20 years. 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 Family HistoryFAMILY HISTORY:Mother 54 years oldFather 77 years old2 Brothers 2 Living2 Sisters 2 LivingMother Hx: Rheumatoid ArthritisFather Hx: ASHD, Ca of Prostate, CHFBrother Hx: ASHD (1) , HTN (1) TEST RESULT RANGE UNITSCBC/COMPLETE BLD COUNT W/DIFF Date: 03/25/2024WHITE BLOOD CELLS 10.1 4.2-10.8 X10'3/ULHEMOGLOBIN 13.2 13.2-17.0 G/DLHEMATOCRIT 39.9 39.3-50.0 %PLATELETS 287 150-400 X10'3/ULCOMPREHENSIVE METABOLIC PANEL Date: 03/25/2024SODIUM 138 137-145 MMOL/LPOTASSIUM 4.5 3.5-5.1 MMOL/LBUN 21 8-19 MG/DLCREATININE 1.01 0.66-1.25 MG/DLGFR >60ALKALINE PHOSPHATASE 84 38-126 U/LALANINE AMINOTRANSFERASE 25 0-50 U/LASPARTATE AMINOTRANSFERASE 34 15-46 U/LBILIRUBIN, TOTAL 0.70 0.20-1.30 MG/DLLIPID PANEL Date: 4CHOLESTEROL 175 140-199 MG/DLTRIGLYCERIDES 89 0-150 MG/DLHDL CHOLESTEROL 64 40- MG/DLLDL CHOLESTEROL, CALCULATED 93 0-130 MG/DL Jordin Calderon MD [address], [address], [place], [address], [facility] [employer] 09/17/2024 11:47:46 11/12/2024 text/html This patient has a past medical history significant for hypercholesterolemia, JENNIFER, HTN, pulmonary emphysema, GERD, rheumatoid arthritis, and OA. He presents to the office with a complaint of left decreased hearing and ear fullness that began approximately 3 weeks ago. He reports that he had gotten some water in his right ear which caused some discomfort and notes using swimmer's eardrops and Debrox without symptom relief. States that the symptoms then moved to his left ear. 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 [employer] [address], [address], [place], [address], [place] - [facility] 11/12/2024 11:03:16
--- NOTE | 2025-01-22 06:41 | P.OP_ITS ---
Procedure Note - Detailed Date of Procedure 01/22/25 Pre-op Diagnosis Mass Right Middle Finger Post-op Diagnosis Same Procedure Performed excision right middle finger doral and volar masses Surgeon Marsha Askew MD Passenger Vessel Chef janet rodríguez pa-c Anesthesia MAC Description of Procedure INFORMED CONSENT: The patient was seen and examined and marked in the pre-op area.? The patient signed the consent form. PROCEDURE IN DETAIL:The patient taken back to OR on the stretcher in supine position. Time out performed with anesthesia, surgeon and staff agreeing on patient's name site and surgery to be performed SCDs were placed on the lower extremities and inflated. A tourniquet was placed on {right} upper extremity and antibiotics given IV After anesthesia administered sedation I injected {6}cc 1%lido and 0.5% marcaine plain for digital block in the palm The?{right upper extremity}?was prepped and draped in sterile fashion the??{right upper extremity} was? exsanguinated with Esmarch bandage and tourniquet inflated to 250mmHg I took my attention to the dorsal right middle finger mass. I proceeded with making a semi circular incision over the mass to create an ulnar based flap. This incision was made through skin and dermis with 15 blade scalpel. Fifteen blade and Littler scissors were used to elevate this dermal skin flap exposing the mass which appeared consistent with giant cell tumor. The mass was then excised off of the extensor tendon sheath and a small portion seemed to be attached to the dorsal PIP joint. No clear connection or bridge to the volar mass was appreciated at this time. The mass was resected and sent off for pathology. Next I took my attention to the volar mass at PIP joint where I made a incision over the mass going obliquely across the DIP joint going obliquely across the flexion crease through skin and dermis with a 15 blade scalpel. Littler scissors were used to elevate this flap in the subcutaneous plane. Neurovascular bundle was identified and noted to be stretched volarly and distorted due to mass effect. The neurovascular bundle was protected throughout the procedure. I proceeded with circumferential dissection of the mass which appeared also consistent with giant cell tumor though this appeared to be arising from the volar ulnar aspect of the DIP joint capsule. A small portion of the PIP joint capsule that appeared discolored and possible origin of the mass was resected and after arthrotomy no clear mass was seen arising from withing the dipjoint. The collateral ligaments were protected and there was no joint laxity. No clear tunnel or connection or bridge was identified connecting to the dorsal mass. Bipolar cautery was used to cauterize the area of resection of joint capsule and dorsal mass excision site. FDP and extensor tendons were intact. I irrigated with normal saline. Fifteen blade scalpel was used to sharply excise the excess skin and tissue from the dorsal flap for appropriate closure. Incisions were closed with 4-0 chromic. A dressing of xeroform, 4x4, melany, and tube gauze was applied after the tourniquet was let down noting the hand was warm and well perfused. The patient was then awaken from anesthesia and transferred to the recovery room in stable condition.? Complications - none EBL- 0cc Disposition - home in stable conditions Janet Rodríguez PA-C was essentail for positioing, retraction, closure and dressing placement [facility] [place] Billing Surgery - Charge Forward: Surgery Billing ([id number],XS [id number]. same for janet adding modifier )
--- NOTE | 2025-01-22 06:41 | WPDHPUPDATE1 ---
History and Physical Update Update Date/Time: 01/22/25 06:41 Patient seen and examined in pre-operative holding area. No interval change in medical history or symptoms. Patient recalls previous discussion of benefits and alternatives to procedure. Continues to desire to proceed with excsiion of right middle finger masses . Reviewed procedure, post-op expectations and risks including but not limited to bleeding, infection, injury to tendon/nerve/vessel, decreased hand function, stiffness, RSD, no change or worsening of symptoms, recurrence. I discussed the possible use of assistants and their participation in the case. Patient stated understanding and signed the consent form wishing to proceed.
[2025-01-22 06:54] VITALS: BP 142/96; PULSE 73; RESP 17; TEMP 37.4; O2SAT 96
[2025-01-22] MEDS: LACTATED RINGERS 1,000 ML 30 ML IV CONT (07:02)
--- NOTE | 2025-01-22 07:13 | WPDANESEPPF ---
Anes - Initial Pre Proc Eval Procedure: Operation Date: 01/22/25 08:15 Proposed Procedures p Excision Mass Right Middle Finger - Marsha Askew MD Date/Time: 01/22/25 07:13 Surgeon: Marsha Askew MD Pre Op Diagnosis: Mass Right Middle Finger Patient Data Age: 64 Gender: M Height: 1.8 m Weight: 93.1 kg Last Vital Signs Temp 37.4 C 01/22/25 06:54 Pulse 73 01/22/25 06:54 Resp 17 01/22/25 06:54 BP 142/96 H 01/22/25 06:54 Pulse Ox 96 01/22/25 06:54 O2 Del Method Room Air 01/22/25 06:54 Allergies Allergy/AdvReac Type Severity Reaction Status Date / Time No Known Allergies Allergy Verified 01/22/25 06:52 Home Medications ?Medication ?Instructions ?Recorded ?Confirmed ?Type atorvastatin 20 mg tablet 20 tablet PO DAILY 03/23/22 01/22/25 History etanercept 50 mg/mL (1 mL) 50 mg subcut WEEKLY 10/28/24 01/22/25 History subcutaneous pen injector (Enbrel SureClick) losartan 50 mg tablet 50 mg PO DAILY 10/28/24 01/22/25 History multivitamin with minerals-folic 1 tablet PO DAILY 10/28/24 01/22/25 History acid 0.4 mg tablet (One-A-Day Men's Pro Edge) omeprazole 20 mg capsule,delayed 20 mg PO DAILY 10/28/24 01/22/25 History release ascorbate calcium (vitamin C) 1 tablet PO DAILY 01/12/25 01/22/25 History Patient hx anesthesia problems: none Family hx anesthesia problems: none Results Review: All pre-operative results and documents have been reviewed as part of the pre-operative evaluation. [facility] Past Medical History Medical History Chronic, continuous use of opioids Rheumatoid arthritis Hyperlipidemia Surgical History Surgical History History of cholecystectomy History of appendectomy Social History Social History Smoking status: Former smoker Tobacco type: cigarettes Second hand tobacco smoke exposure: Yes Additional smoking assessment comments: Quit 3-4 years ago Alcohol intake: current Drinks per week: 12 Alcohol use details: 12 pack a week, socially Substance use: current Substance use type: marijuana Other substance usage details: daily Living arrangements: with family Spiritual care concerns: No Anes - Eval Final PreProcedure Day of Procedure 01/22/25 07:13 Patient weight: overweight Heart: regular rate and rhythm Lungs: clear to auscultation Airway: Mallampati scale class II Neurological: alert and oriented Last oral intake: >/= 8 hours ASA classification: III Emergent: no Anesthetic plan: proceed Anesthesia type and monitoring: general GIVS and standard monitoring Results Review: All pre-operative results and documents have been reviewed as part of the pre-operative evaluation. Informed Consent: The patient's anesthetic plan and its attendant risks and benefits were discussed with the patient/family/POA. Questions were solicited and answers provided to the satisfaction of the patient/family/POA.
--- NOTE | 2025-01-22 07:16 | P.PNAN_ITS ---
Anes - Initial Pre Proc Eval Procedure: Operation Date: 01/22/25 08:15 Proposed Procedures p Excision Mass Right Middle Finger - Marsha Askew MD Date/Time: 01/22/25 07:16 Surgeon: Marsha Askew MD Pre Op Diagnosis: Mass Right Middle Finger Patient Data Age: 64 Gender: M Height: 1.8 m Weight: 93.1 kg Last Vital Signs Temp 37.4 C 01/22/25 06:54 Pulse 73 01/22/25 06:54 Resp 17 01/22/25 06:54 BP 142/96 H 01/22/25 06:54 Pulse Ox 96 01/22/25 06:54 O2 Del Method Room Air 01/22/25 06:54 Allergies Allergy/AdvReac Type Severity Reaction Status Date / Time No Known Allergies Allergy Verified 01/22/25 06:52 Home Medications ?Medication ?Instructions ?Recorded ?Confirmed ?Type atorvastatin 20 mg tablet 20 tablet PO DAILY 03/23/22 01/22/25 History etanercept 50 mg/mL (1 mL) 50 mg subcut WEEKLY 10/28/24 01/22/25 History subcutaneous pen injector (Enbrel SureClick) losartan 50 mg tablet 50 mg PO DAILY 10/28/24 01/22/25 History multivitamin with minerals-folic 1 tablet PO DAILY 10/28/24 01/22/25 History acid 0.4 mg tablet (One-A-Day Men's Pro Edge) omeprazole 20 mg capsule,delayed 20 mg PO DAILY 10/28/24 01/22/25 History release ascorbate calcium (vitamin C) 1 tablet PO DAILY 01/12/25 01/22/25 History Patient hx anesthesia problems: none Family hx anesthesia problems: none Results Review: All pre-operative results and documents have been reviewed as part of the pre- operative evaluation. [facility] Past Medical History Medical History Chronic, continuous use of opioids Rheumatoid arthritis Hyperlipidemia Surgical History Surgical History History of cholecystectomy History of appendectomy Social History Social History Smoking status: Former smoker Tobacco type: cigarettes Second hand tobacco smoke exposure: Yes Additional smoking assessment comments: Quit 3-4 years ago Alcohol intake: current Drinks per week: 12 Alcohol use details: 12 pack a week, socially Substance use: current Substance use type: marijuana Other substance usage details: daily Living arrangements: with family Spiritual care concerns: No Anes - Eval Final PreProcedure Day of Procedure 01/22/25 07:16 Patient weight: overweight Heart: regular rate and rhythm Lungs: clear to auscultation Airway: Mallampati scale class II Neurological: alert and oriented Last oral intake: >/= 8 hours ASA classification: III Emergent: no Anesthetic plan: proceed Anesthesia type and monitoring: general GIVS and standard monitoring Results Review: All pre-operative results and documents have been reviewed as part of the pre- operative evaluation. Informed Consent: The patient's anesthetic plan and its attendant risks and benefits were discussed with the patient/family/POA. Questions were solicited and answers provided to the satisfaction of the patient/family/POA.
[2025-01-22] MEDS: ceFAZolin SODIUM 2 GM/20 ML SW SYRINGE IV PUSH (08:01)
[2025-01-22] MEDS: LIDOCAINE 1% LOCAL INJ 20 ML VIAL 5 ML INFILTRATE (08:12)
[2025-01-22] MEDS: BUPivacaine HCL 0.5% PF 30 ML VIAL 5 ML INFILTRATE (08:12)
[2025-01-22 08:32] VITALS: BP 114/77; PULSE 87; RESP 16; O2SAT 98
--- NOTE | 2025-01-22 08:41 | WPDANESPN ---
Anes - Prog Note Post-Op Date/Time: 01/22/25 08:41 Cardiovascular status: normal Respiratory status: normal Airway patency: baseline Mental status: baseline Post-Op hydration status: normal Vital Signs: Last Vital Signs Temp 37.4 C 01/22/25 06:54 Pulse 73 01/22/25 06:54 Resp 17 01/22/25 06:54 BP 142/96 H 01/22/25 06:54 Pulse Ox 96 01/22/25 06:54 O2 Del Method Room Air 01/22/25 06:54 Pain Score (VAS): 0/10 Patient Feedback: Patient satisfied with anesthetic care.
[2025-01-22 09:00] VITALS: BP 135/86; PULSE 84; RESP 16; O2SAT 99
== END 2025-01-22 09:16 | disposition home or self-care (01) ==
PROVIDERS: PCP Internal Medicine; Visit Provider Plastic Surgery
PROC: (CPT 26116; principal; 2025-01-22 08:15)
DX: D48.19 Other specified neoplasm of uncertain behavior of connective and other soft tissue (principal)
CPT/HCPCS: 26116 ×2

== ENCOUNTER 2025-01-22 10:07 | Outpatient (NON) | payer OTHER, SELFPAY ==
--- OUTSIDE RECORDS SUMMARY | 2025-01-23 10:31 | XMS_ITS | Clinical Summary ---
Author Organization [facility] Address [address] [place] [id number] Care Team Providers Care Tools And Parts Attendant Name Role Phone Chalo Calderon MD Primary [...] - 01/01/2025 11:59 PM CDT Hospital Encounter [facility] ([facility]) [address] [place] [id number] Discharge Disposition: Discharge to home or self care 12/30/2024 4:20 PM CDT Office Visit [facility] Otolaryngology [address], [address] [place] [phone] Diaz Zaldivar MD Conductive hearing loss, bilateral (Primary Dx); Cholesteatoma of left ear 12/30/2024 4:00 PM CDT Procedure visit [facility] Otolaryngology [address], [address] [place] [address] Mixed conductive and sensorineural hearing loss of right ear with restricted hearing of left ear (Primary Dx); Sensorineural hearing loss (SNHL) of left ear with restricted hearing of right ear 11/21/2024 Telephone [place] [facility] ([facility]) - [facility] [address] Advanced Medicine 11th [place] [address] [place] [address] Katarina Hurd MS registered from Last 3 Months Social History Tobacco Use Types Packs/Day Years Used Date Smoking Tobacco: Never Assessed Sex and Gender Information Value Date Recorded Sex Assigned at Not on file 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 There will be no report generated by a [facility] Radiologist. Narrative [facility] - 01/01/2025 9:37 PM CDT EXAMINATION: Images For Reference Purposes Only us Diaz Zaldivar MD IMG CT PROCEDURES Final Res ult Performing Organization Address City/State/[facility] Co de Phone Number [facility] * [employer] Results (12/30/2024 3:37 PM CDT) us Provider Scanning AUDIOLOGY SERVICES ORDERABLES Final Result from Last 3 Months Insurance [facility] [employer] PL[employer] Care Teams Tools And Parts Attendant Relationship Specialty Start Date End Date Chalo Calderon MD PCP - General 03/30/17
--- OUTSIDE RECORDS SUMMARY | 2025-01-23 10:31 | XMS_ITS | Data Portability ---
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 Patient will setup an appointment with [facility] for supplies and pressure adjustments. A [...] were reviewed and explained to the patient: [facility] home sleep study 12/12/23 AHI = 60 [facility] titration sleep study 03/19/24 sleep onset [...] carrier. Patient will setup an appointment with [facility] for supplies and pressure adjustments. A [...] were reviewed and explained to the patient: [facility] home sleep study 12/12/23 AHI = 60 [facility] titration sleep study 03/19/24 sleep onset [...] at automatic mode. Keep EPR @ +2 horse race timer. Oxygen supplementation: none Patient is benefiting from [...] carrier. Patient will setup an appointment with [facility] for supplies and pressure adjustments. A [...] further management. Follow-up: 6 months, December 2024 [email or web address]5 Not available 06/30/2024 10:45:30 Plan of Treatment Reminders Order Date Submit Date Provider Last Modified By Organization Details Last Modified Time Details Appointments None recorded. Lab CBC w/ auto diff [address] Outpatient Lab, [address] [place], [address], 4 15:46:48 CMP, serum or plasma [address] Outpatient Lab, [address] [place], [address], 4 15:46:48 lipid panel, serum [address] Outpatient Lab, [address] [place], [address], 4 15:46:49 ferritin, serum or plasma 2023 025 [email or web address] [facility] Outpatient Lab, [address] [place], [address], 5 10:14:57 ferritin, serum or plasma 2023 024 [facility] [address] [place], [address], 4 14:51:20 iron + TIBC + ferritin, serum 2023 024 [facility] Outpatient Lab, [address] [place] [address], [address], 4 11:34:13 folate, RBC [email or web address] [place] [address] Outpatient Lab, [address] [place], [address], 4 10:57:13 vitamin B12, serum 2023 024 [facility] Outpatient Lab, [address] [place] [address], [address], 4 11:50:09 ESR (erythrocy te sedimentat ion rate), blood 2023 024 [facility] Outpatient Lab, [address] [place], [address], 4 11:34:13 hemoglobin + hematocrit , blood [id number] [place] [address] Outpatient Lab, [address] [place] [address], [address], 4 10:57:13 bun (blood urea nitrogen), serum or plasma [email or web address] [place] [address] Outpatient Lab, [address] [place], [address], 4 10:57:14 creatinine , serum or plasma [email or web address] [place] [address] Outpatient Lab, [address] [place] [address], [address], 4 10:57:14 magnesium, serum or plasma 2023 024 [facility] Outpatient Lab, [address] [place], [address], 4 10:58:50 vitamin E, serum 2023 024 [facility] - Outpatient Lab, [address] [place], [address], 4 10:17:55 Referral None recorded. Procedures None recorded. Surgeries None recorded. Imaging None recorded. Medication Orders Ciprodex 0.3 %-0.1 % ear drops,susp ension 2024 [id number] [address] [place], [address], 5 10:34:58 ferrous sulfate 325 mg (65 mg iron) tablet 2023 024 [id number] [address] [place], [address], 4 10:46:10 Vitamin C 500 mg tablet 2023 024 [id number], [address] [place], [address], 4 10:46:10 ferrous sulfate 325 mg (65 mg iron) tablet 2023 024 [id number], [address] [place], [address], 4 08:47:22 Vitamin C 500 mg tablet 2023 024 [id number], [address] [place], [address], 4 08:47:22 Patient TargetsNo targets recorded. Patient Instructions Encounter Date Encounter Id Patient Instructions Last Modified By Organization Details Last Modified Time 09/17/2024 [id number] Follow-up hypertension, rheumatoid arthritis, hyperlipidemia and GERD [...] with voice recognition software. Occasional wrong-word or [id number] substitutions may have occurred due to the inherent limitations of voice recognition software. Read the chart carefully and recognize, using context, where substitutions have occurred. Created: Jordin Calderon M.D. 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 He will have a CT of his temporal bones and we will follow-up on these results become available. Use Ciprodex eardrops as directed. [email or web address] Not available 11/12/2024 11:03:12 Reason for Referral None Reported. Results Created Date Observation Date Name Description Value Unit Range Abnormal Flag Note LastModifiedBy Organization Detail LastModifiedTime 03/25/20 24 03/25/2024 CBC/C OMPLE TE BLD COUNT W/DIF F white blood cells 10.1 x10'3 /uL 4.2-10 .8 Not Available [facility] (Lab) [address] [place], [address], 03/25/2024 10:54:33 03/25/20 24 03/25/2024 CBC/C OMPLE TE BLD COUNT W/DIF F red blood cells 4.14 x10'6 /uL 4.10-5 .80 Not Available [facility] (Lab) [address] [place], [address], 03/25/2024 10:54:33 03/25/20 24 03/25/2024 CBC/C OMPLE TE BLD COUNT W/DIF F hemoglobin 13.2 g/dL 13.2-1 7.0 Not Available [facility] (Lab) [address] [place], [address], 03/25/2024 10:54:33 03/25/20 24 03/25/2024 CBC/C OMPLE TE BLD COUNT W/DIF F hematocrit 39.9 % 39.3-5 0.0 Not Available [facility] (Lab) [address] [place], [address], 03/25/2024 10:54:33 03/25/20 24 03/25/2024 CBC/C OMPLE TE BLD COUNT W/DIF F mean red cell volume 96.4 fL 80.0-9 7.0 Not Available [facility] (Lab) [address] [place], [address], 03/25/2024 10:54:33 03/25/20 24 03/25/2024 CBC/C OMPLE TE BLD COUNT W/DIF F mean red cell hemoglobin 31.9 pg 27.0-3 3.0 Not Available [facility] (Lab) [address] [place], [address], 03/25/2024 10:54:33 03/25/20 24 03/25/2024 CBC/C OMPLE TE BLD COUNT W/DIF F mean RBC HGB concentratio n 33.1 g/dL 31.0-3 6.0 Not Available [facility] (Lab) [address] [place], [address], 03/25/2024 10:54:33 03/25/20 24 03/25/2024 CBC/C OMPLE TE BLD COUNT W/DIF F red cell distribution width 13.1 % 11.8-1 5.5 Not Available [facility] (Lab) [address] [place], [address], 03/25/2024 10:54:33 03/25/20 24 03/25/2024 CBC/C OMPLE TE BLD COUNT W/DIF F platelets 287 x10'3 /uL 150-40 0 Not Available [facility] (Lab) [address] [place], [address], 03/25/2024 10:54:33 03/25/20 24 03/25/2024 CBC/C OMPLE TE BLD COUNT W/DIF F mean platelet volume 10.2 fL 9.0-12 .4 Not Available [facility] (Lab) [address] [place], [address], 03/25/2024 10:54:33 03/25/20 24 03/25/2024 CBC/C OMPLE TE BLD COUNT W/DIF F neutrophils 46.1 % 39.0-7 2.0 Not Available [facility] (Lab) [address] [place], [address], 03/25/2024 10:54:33 03/25/20 24 03/25/2024 CBC/C OMPLE TE BLD COUNT W/DIF F lymphocytes 41.9 % 16.0-4 7.0 Not Available [facility] (Lab) [address] [place], [address], 03/25/2024 10:54:33 03/25/20 24 03/25/2024 CBC/C OMPLE TE BLD COUNT W/DIF F monocytes 8.3 % 5.0-12 .0 Not Available [facility] (Lab) [address] [place], [address], 03/25/2024 10:54:33 03/25/20 24 03/25/2024 CBC/C OMPLE TE BLD COUNT W/DIF F eosinophils 2.9 % 1.0-7. 0 Not Available [facility] (Lab) [address] [place], [address], 03/25/2024 10:54:33 03/25/20 24 03/25/2024 CBC/C OMPLE TE BLD COUNT W/DIF F basophils 0.6 % 0.0-2. 0 Not Available [facility] (Lab) [address] [place], [address], 03/25/2024 10:54:33 03/25/20 24 03/25/2024 CBC/C OMPLE TE BLD COUNT W/DIF F immature granulocytes 0.2 % 0.00-0 .50 Not Available [facility] (Lab) [address] [place], [address], 03/25/2024 10:54:33 03/25/20 24 03/25/2024 CBC/C OMPLE TE BLD COUNT W/DIF F neutrophils, absolute count 4.68 x10'3 /uL 1.5-8. 0 Not Available [facility] (Lab) [address] [place], [address], 03/25/2024 10:54:33 03/25/20 24 03/25/2024 CBC/C OMPLE TE BLD COUNT W/DIF F lymphocytes, absolute count 4.24 x10'3 /uL 1.07-3 .43 high Not Available [facility] (Lab) [address] [place], [address], 03/25/2024 10:54:33 03/25/20 24 03/25/2024 CBC/C OMPLE TE BLD COUNT W/DIF F monocytes, absolute count 0.84 x10'3 /uL 0.29-0 .99 Not Available [facility] (Lab) [address] [place], [address], 03/25/2024 10:54:33 03/25/20 24 03/25/2024 CBC/C OMPLE TE BLD COUNT W/DIF F eosinophils, absolute count 0.29 x10'3 /uL 0.02-0 .53 Not Available [facility] (Lab) [address] [place], [address], 03/25/2024 10:54:33 03/25/20 24 03/25/2024 CBC/C OMPLE TE BLD COUNT W/DIF F basophils, absolute count 0.06 x10'3 /uL 0.01-0 .08 Not Available [facility] (Lab) [address] [place], [address], 03/25/2024 10:54:33 03/25/20 24 03/25/2024 CBC/C OMPLE TE BLD COUNT W/DIF F immature granulocytes ,absolute 0.02 x10'3 /uL 0.00-0 .05 Not Available [facility] (Lab) [address] [place], [address], 03/25/2024 10:54:33 03/25/20 24 03/25/2024 CBC/C OMPLE TE BLD COUNT W/DIF F nucleated red blood cells 0.0 % -0 Not Available [facility] (Lab) [address] [place], [address], 03/25/2024 10:54:33 03/25/20 24 03/25/2024 CBC/C OMPLE TE BLD COUNT W/DIF F NRBC# 0.00 x10'3 /uL Not Available [facility] (Lab) [address] [place], [address], 03/25/2024 10:54:33 03/25/20 24 03/25/2024 LIPID PANEL cholesterol 175 mg/dL 140-19 9 NIH VICK NSUS RECOM MENDA TION FOR JENNY STERO L: ADULT CHILD LOW RISK: <200 <170 BORDE RLINE : <200- 239 ----- HIGH RISK: >240 >200 Not Available [facility] (Lab) [address] [place], [address], 03/25/2024 10:58:40 03/25/2003/25/2024 LIPID PANEL triglyceride s 89 mg/dL 0-150 NIH VICK NSUS REPOR T RECOM MENDA TION FOR TRIGL YCERI ROBBY: ADULT CHILD LOW RISK: <150 ----- BODER LINE: 150-1 99 ----- HIGH RISK: >200 ----- Not Available [facility] (Lab) [address] [place], [address], 03/25/2024 10:58:40 03/25/20 24 03/25/2024 LIPID PANEL HDL cholesterol 64 mg/dL 40- Not Available [facility] (Lab) [address] [place], [address], 03/25/2024 10:58:40 03/25/20 24 03/25/2024 LIPID PANEL [...] WILL NOT BE REPOR GERARDO. Not Available [facility] (Lab) [address] [place], [address], 03/25/2024 10:58:40 03/25/20 24 03/25/2024 COMPR EHENS DANTE METAB OLIC PANEL sodium 138 mmol/ L 137-14 5 Not Available [facility] (Lab) [address] [place], [address], 03/25/2024 10:58:46 03/25/20 24 03/25/2024 COMPR EHENS DANTE METAB OLIC PANEL potassium 4.5 mmol/ L 3.5-5. 1 Not Available [facility] (Lab) [address] [place], [address], 03/25/2024 10:58:46 03/25/20 24 03/25/2024 COMPR EHENS DANTE METAB OLIC PANEL chloride 106 mmol/ L 98-107 Not Available [facility] (Lab) [address] [place], [address], 03/25/2024 10:58:46 03/25/20 24 03/25/2024 COMPR EHENS DANTE METAB OLIC PANEL carbon dioxide 28 mmol/ L 22-30 Not Available [facility] (Lab) [address] [place], [address], 03/25/2024 10:58:46 03/25/20 24 03/25/2024 COMPR EHENS DANTE METAB OLIC PANEL anion gap 8.5 mmol/ L 14-22 low Not Available [facility] (Lab) [address] [place], [address], 03/25/2024 10:58:46 03/25/20 24 03/25/2024 COMPR EHENS DANTE METAB OLIC PANEL glucose 96 mg/dL 70-99 Not Available [facility] (Lab) [address] [place], [address], 03/25/2024 10:58:46 03/25/20 24 03/25/2024 COMPR EHENS DANTE METAB OLIC PANEL BUN 21 mg/dL 8-19 high Not Available [facility] (Lab) [address] [place], [address], 03/25/2024 10:58:46 03/25/20 24 03/25/2024 COMPR EHENS DANTE METAB OLIC PANEL creatinine 1.01 mg/dL 0.66-1 .25 Not Available [facility] (Lab) [address] [place], [address], 03/25/2024 10:58:46 03/25/20 24 03/25/2024 COMPR EHENS DANTE METAB OLIC PANEL GFR >60 Refer ence Range : [place]ushing ge GFR Healt hy Adult : >60 [...] calcu lator is avail able on the [facility] websi te: https ://luda w.mendel hernandez.o donald/pr ofess ional s/kdo qi/gf r_cal culat or Not Available [facility] (Lab) [address] [place], [address], 03/25/2024 10:58:46 03/25/20 24 03/25/2024 COMPR EHENS DANTE METAB OLIC PANEL alkaline phosphatase 84 U/L 38-126 Not Available [facility] (Lab) [address] [place], [address], 03/25/2024 10:58:46 03/25/20 24 03/25/2024 COMPR EHENS DANTE METAB OLIC PANEL alanine aminotransfe rase 25 U/L 0-50 Not Available [facility] (Lab) [address] [place], [address], 03/25/2024 10:58:46 03/25/20 24 03/25/2024 COMPR EHENS DANTE METAB OLIC PANEL aspartate aminotransfe rase 34 U/L 15-46 Not Available [facility] (Lab) [address] [place], [address], 03/25/2024 10:58:46 03/25/20 24 03/25/2024 COMPR EHENS DANTE METAB OLIC PANEL bilirubin, total 0.70 mg/dL 0.20-1 .30 Not Available [facility] (Lab) [address] [place], [address], 03/25/2024 10:58:46 03/25/20 24 03/25/2024 COMPR EHENS DANTE METAB OLIC PANEL calcium 9.5 mg/dL 8.4-10 .2 Not Available [facility] (Lab) [address] [place], [address], 03/25/2024 10:58:46 03/25/20 24 03/25/2024 COMPR EHENS DANTE METAB OLIC PANEL total protein 6.8 g/dL 6.3-8. 2 Not Available [facility] (Lab) [address] [place], [address], 03/25/2024 10:58:46 03/25/20 24 03/25/2024 COMPR EHENS DANTE METAB OLIC PANEL albumin 4.2 g/dL 3.0-4. 4 Not Available [facility] (Lab) [address] [place], [address], 03/25/2024 10:58:46 03/25/20 24 03/25/2024 COMPR EHENS DANTE METAB OLIC PANEL globulin 2.6 g/dL 2.6-4. 2 Not Available [facility] (Lab) [address] [place], [address], 03/25/2024 10:58:46 03/25/20 24 03/25/2024 COMPR EHENS DANTE METAB OLIC PANEL A/G ratio 1.6 ratio 1.0-2. 0 Not Available [facility] (Lab) [address] [place], [address], 03/25/2024 10:58:46 03/25/20 24 03/25/2024 MAGNE SIUM magnesium 1.9 mg/dL 1.6-2. 3 Not Available [facility] (Lab) [address] [place], [address], 03/25/2024 10:58:50 03/25/20 24 03/25/2024 VITAM IN B12 (GERMANIA LAURA ) vb12 903 pg/mL 239-93 1 Not Available [facility] (Lab) [address] [place], [address], 03/25/2024 11:50:09 09/29/20 24 09/29/2024 LIPID PANEL , STAND SHERRELL cholesterol, total 151 mg/dL <200 normal Not Available [address], [address], 09/29/2024 17:42:29 09/29/20 24 09/29/2024 LIPID PANEL , STAND SHERRELL HDL cholesterol 36 mg/dL > or = 40 low Not Available [address], [address], 09/29/2024 17:42:29 09/29/20 24 09/29/2024 LIPID PANEL , STAND SHERRELL triglyceride s 89 mg/dL <150 normal Not Available [address], [address], 09/29/2024 17:42:29 09/29/20 24 09/29/2024 LIPID PANEL [...] 9): 2061- 2068 (http ://ed ucati on.Jasmyn caedna [employer]. com/f aq/FA Q164) Not Available [address] [address] [place], [address], 09/29/2024 17:42:29 09/29/20 24 09/29/2024 LIPID PANEL , STAND SHERRELL chol/HDLC ratio 4.2 (calc ) <5.0 normal Not Available [address] [place], [address], 09/29/2024 17:42:29 09/29/20 24 09/29/2024 LIPID PANEL , STAND SHERRELL non HDL cholesterol 115 mg/dL _(veda c) <130 normal For patie nts with diabe presley plus 1 major ASCVD risk facto r, treat ing to a non-H DL-C goal of <100 mg/dL (LDL- C of <70 mg/dL ) is consi dered a thera peuti c optio n. Not Available [address] [address] [facility] [place], [address], 09/29/2024 17:42:29 09/29/20 24 09/29/2024 COMPR EHENS DANTE METAB OLIC PANEL glucose 93 mg/dL 65-99 normal Fasti ng refer ence inter patrizia Not Available [address], [address], 09/29/2024 17:42:30 09/29/20 24 09/29/2024 COMPR EHENS DANTE METAB OLIC PANEL urea nitrogen (BUN) 24 mg/dL 7-25 normal Not Available [address], [address], 09/29/2024 17:42:30 09/29/20 24 09/29/2024 COMPR EHENS DANTE METAB OLIC PANEL creatinine 1.05 mg/dL 0.70-1 .35 normal Not Available [address], [address], 09/29/2024 17:42:30 09/29/20 24 09/29/2024 COMPR EHENS DANTE METAB OLIC PANEL eGFR 79 mL/mi n/1.7 3m2 > or = 60 normal Not Available [address], [address], 09/29/2024 17:42:30 09/29/20 24 09/29/2024 COMPR EHENS DANTE METAB OLIC PANEL BUN/creatini ne ratio SEE NOTE: (calc ) 6-22 Not Repor gerardo: BUN and Creat inine are withi n refer ence range . Not Available [address], [address], 09/29/2024 17:42:30 09/29/20 24 09/29/2024 COMPR EHENS DANTE METAB OLIC PANEL sodium 139 mmol/ L 135-14 6 normal Not Available [address], [address], 09/29/2024 17:42:30 09/29/20 24 09/29/2024 COMPR EHENS DANTE METAB OLIC PANEL potassium 4.8 mmol/ L 3.5-5. 3 normal Not Available [address], [address], 09/29/2024 17:42:30 09/29/20 24 09/29/2024 COMPR EHENS DANTE METAB OLIC PANEL chloride 104 mmol/ L 98-110 normal Not Available [address] [address] [place], [address], 09/29/2024 17:42:30 09/29/20 24 09/29/2024 COMPR EHENS DANTE METAB OLIC PANEL carbon dioxide 27 mmol/ L 20-32 normal Not Available [address], [address], 09/29/2024 17:42:30 09/29/20 24 09/29/2024 COMPR EHENS DANTE METAB OLIC PANEL calcium 9.4 mg/dL 8.6-10 .3 normal Not Available [address], [address], 09/29/2024 17:42:30 09/29/20 24 09/29/2024 COMPR EHENS DANTE METAB OLIC PANEL protein, total 7.1 g/dL 6.1-8. 1 normal Not Available [address], [address], 09/29/2024 17:42:30 09/29/20 24 09/29/2024 COMPR EHENS DANTE METAB OLIC PANEL albumin 4.3 g/dL 3.6-5. 1 normal Not Available [address], [address], 09/29/2024 17:42:30 09/29/20 24 09/29/2024 COMPR EHENS DANTE METAB OLIC PANEL globulin 2.8 g/dL_ (calc ) 1.9-3. 7 normal Not Available [address], [address], 09/29/2024 17:42:30 09/29/20 24 09/29/2024 COMPR EHENS DANTE METAB OLIC PANEL albumin/glob ulin ratio 1.5 (calc ) 1.0-2. 5 normal Not Available [address], [address], 09/29/2024 17:42:30 09/29/20 24 09/29/2024 COMPR EHENS DANTE METAB OLIC PANEL bilirubin, total 0.7 mg/dL 0.2-1. 2 normal Not Available [address], [address], 09/29/2024 17:42:30 09/29/20 24 09/29/2024 COMPR EHENS DANTE METAB OLIC PANEL alkaline phosphatase 80 U/L 35-144 normal Not Available [facility] [employer] [address] [address] [place], [address], 09/29/2024 17:42:30 09/29/20 24 09/29/2024 COMPR EHENS DANTE METAB OLIC PANEL AST 18 U/L 10-35 normal Not Available [address], [address], 09/29/2024 17:42:30 09/29/20 24 09/29/2024 COMPR EHENS DANTE METAB OLIC PANEL ALT 21 U/L 9-46 normal Not Available [address], [address], 09/29/2024 17:42:30 09/29/20 24 09/29/2024 CBC (INCL UDES DIFF/ PLT) white blood cell count 6.3 thous and/u L 3.8-10 .8 normal Not Available [address], [address], 09/29/2024 17:42:32 09/29/20 24 09/29/2024 CBC (INCL UDES DIFF/ PLT) red blood cell count 4.29 velia on/uL 4.20-5 .80 normal Not Available [address], [address], 09/29/2024 17:42:32 09/29/20 24 09/29/2024 CBC (INCL UDES DIFF/ PLT) hemoglobin 14.1 g/dL 13.2-1 7.1 normal Not Available [address], [address], 09/29/2024 17:42:32 09/29/20 24 09/29/2024 CBC (INCL UDES DIFF/ PLT) hematocrit 41.7 % 38.5-5 0.0 normal Not Available [employer] [place] [address], [address], 09/29/2024 17:42:32 09/29/20 24 09/29/2024 CBC (INCL UDES DIFF/ PLT) MCV 97.2 fL 80.0-1 00.0 normal Not Available [address], [address], 09/29/2024 17:42:32 09/29/20 24 09/29/2024 CBC (INCL UDES DIFF/ PLT) MCH 32.9 pg 27.0-3 3.0 normal Not Available [address], [address], 09/29/2024 17:42:32 09/29/20 24 09/29/2024 CBC (INCL [...] nt's clini veda condi tion. Not Available [address], [address], 09/29/2024 17:42:32 09/29/20 24 09/29/2024 CBC (INCL UDES DIFF/ PLT) RDW 12.4 % 11.0-1 5.0 normal Not Available [address], [address], 09/29/2024 17:42:32 09/29/20 24 09/29/2024 CBC (INCL UDES DIFF/ PLT) platelet count 287 thous and/u L 140-40 0 normal Not Available [address], [address], 09/29/2024 17:42:32 09/29/20 24 09/29/2024 CBC (INCL UDES DIFF/ PLT) MPV 10.0 fL 7.5-12 .5 normal Not Available [address], [address], 09/29/2024 17:42:32 09/29/20 24 09/29/2024 CBC (INCL UDES DIFF/ PLT) absolute neutrophils 3219 cells /uL 1500-7 800 normal Not Available [address], [address], 09/29/2024 17:42:32 09/29/20 24 09/29/2024 CBC (INCL UDES DIFF/ PLT) absolute lymphocytes 2174 cells /uL 850-39 00 normal Not Available [address], [address], 09/29/2024 17:42:32 09/29/20 24 09/29/2024 CBC (INCL UDES DIFF/ PLT) absolute monocytes 649 cells /uL 200-95 0 normal Not Available [address], [address], 09/29/2024 17:42:32 09/29/20 24 09/29/2024 CBC (INCL UDES DIFF/ PLT) absolute eosinophils 221 cells /uL 15-500 normal Not Available [address], [address], 09/29/2024 17:42:32 09/29/20 24 09/29/2024 CBC (INCL UDES DIFF/ PLT) absolute basophils 38 cells /uL 0-200 normal Not Available [address], [address], 09/29/2024 17:42:32 09/29/20 24 09/29/2024 CBC (INCL UDES DIFF/ PLT) neutrophils 51.1 % normal Not Available [address], [address], 09/29/2024 17:42:32 09/29/20 24 09/29/2024 CBC (INCL UDES DIFF/ PLT) lymphocytes 34.5 % normal Not Available [address], [address], 09/29/2024 17:42:32 09/29/20 24 09/29/2024 CBC (INCL UDES DIFF/ PLT) monocytes 10.3 % normal Not Available [address], [address], 09/29/2024 17:42:32 09/29/20 24 09/29/2024 CBC (INCL UDES DIFF/ PLT) eosinophils 3.5 % normal Not Available [address], [address], 09/29/2024 17:42:32 09/29/20 24 09/29/2024 CBC (INCL UDES DIFF/ PLT) basophils 0.6 % normal Not Available [address], [address], 09/29/2024 17:42:32 03/21/20 24 03/19/2024 polys omnog paola, titra tion study No observ ation record ed. BARCODE Not Available 2023 13:01:59 03/21/20 24 12/12/2023 home sleep study No observ ation record ed. BARCODE Not Available 2023 15:40:10 03/26/20 24 03/19/2024 sleep diary asses sment * No observ ation record ed. [email or web address] [facility] [address], [place], [address], 03/26/2024 14:05:45 05/29/20 24 05/08/2024 lab* No observ ation record ed. [email or web address] Not Available 2023 14:26:42 11/20/19 25 11/20/2024 XR, masto id(s) No observ ation record ed. [email or web address] [facility] [address], [place], [address], 11/20/2024 09:55:33 11/20/19 25 11/20/2024 CT, tempo ral bone, w/o contr ast No observ ation record ed. [address] [facility] [address], [place], [address], 11/24/2024 15:45:27 11/21/19 25 11/21/2024 CT, tempo ral bone, w/o contr ast No observ ation record ed. [address] [facility] [address], [place], [address], 11/24/2024 15:45:22 11/28/19 25 11/28/2024 MRI, hand, w/o contr ast No observ ation record ed. [address] [facility] [address], [place], [address], 11/29/2024 01:40:30 Result Notes None recorded. Problems Name Problem SNOMED Code Status Onset Date Resolution Date Notes Provider Name and Address Organization Details Recorded Time History of total knee arthroplas ty 0616739820397 Active 2021 Not Available [facility] 3 09:17:38 Hyperchole sterolemia 80039429 Active Not Available [facility] 3 09:17:38 Localized, primary osteoarthr itis of the pelvic region and thigh 492528970 Active Not Available [facility] 3 09:17:38 Gastroesop hageal reflux disease 595779729 Active Not Available [facility] 3 09:17:38 Osteoarthr itis of knee 468064597 Active 2017 Not Available [facility] 3 09:17:38 Rheumatoid arthritis 72184541 Active 2018 Not Available [facility] 3 09:17:38 Pulmonary emphysema 95899751 Active Not Available [facility] 3 09:17:38 Essential hypertensi on 35142222 Active 2022 Pamela Bae CMA null, [facility] 3 16:12:17 Obstructiv e sleep apnea syndrome 94418482 Active 2023 Jordin Calderon MD [address], [address], [place], [address] , [facility] 4 17:31:50 Periodic limb movement disorder 781417677 Active 2023 Clarence Squires MD [address], [address], [place], [address] , [facility] 4 08:54:54 Iron deficiency 02538087 Active 2023 Clarence Squires MD [address], [address], [place], [address] , [facility] 4 08:13:14 Acute bronchitis 59569861 Active 2023 Jordin Calderon MD [address], [address], [place], [address] , [facility] 4 11:29:47 Cyst of finger 467539324 Active 2023 Yi Talbot null, [facility] 4 18:07:18 Dermatophy tosis 66444403 Active 2023 Jordin Calderon MD [address], [address], [place], [address] , [facility] 4 12:52:07 Cholesteat bernadine of middle ear 23477712 Active 2024 Joselin Nunez RN null, [facility] 5 10:55:55 Notes:Medical History: Granu lomatous disease of chest 4 mm LLL pulm nodule Very severe OSAHS, AHI = 60, 12/12/23 Mild RVE Mild LAE Hypertension EF 65% Hyperlipidemia DOTTY Iron deficiency PLMD RA Procedure History: T&A 1963 Appendectomy 1974 Right meniscus repair 1996 Left meiscus repair 1997 Cholecystectomy 1998 Right knee arthroplasty 2018 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 Procedures Surgical History None recorded. Imaging Results Imaging Date Name Status LastModified by Organiz ation Details LastModified Time 03/19/2024 polysomnogram, titration study completed [facility] Information not available 03/21/2024 13:01:59 12/12/2023 home sleep study completed [facility] Information not available 03/21/2024 15:40:10 03/19/2024 sleep diary assessment* completed [address] [facility] [address], [place], [address], 03/26/2024 14:05:45 05/08/2024 lab* [place] [address] Information no t available 05/29/2024 14:26:42 11/20/2024 XR, mastoid(s) completed [address] [facility] [address], [place], [address], 11/20/2024 09:55:33 11/20/2024 CT, temporal bone, w/o contrast completed [address] [facility] [address], [place], [address], 11/24/2024 15:45:27 11/21/2024 CT, temporal bone, w/o contrast completed [address] [facility] [address], [place], [address], 11/24/2024 15:45:22 11/28/2024 MRI, hand, w/o contrast completed [id number] [place] [address] Imaging [address], [place], [address], 11/29/2024 01:40:30 Procedure Notes None recorded. Medical [...] completed Not Available Not Available Not Available [place] 7.5 mg-325 mg tablet Take 1 tablet every 6 hours by oral route. 08/11 completed Last Name First Name Street Address City State Zip Date of Date Filled Label Name Strength Metric Qty/Days Supply Payment Type ? Pharmacy Name/ [facility] [place] [address] [address] 9 04/22/2019 HYDROCOD ONE BITARTRA TE-ACETA MINOPHEN 325 MG-7.5 MG 60/15 Insur[facility] JORDIN CALDERON [address] [phone] 9 HYDROCOD ONE BITARTRA TE-ACETA MINOPHEN 325 MG-7.5 MG 28/7 Ins[facility]anc e [facility] JORDIN CALDERON [address] [address] 9 9 ACETAMIN OPHEN-CO DEINE 300MG-60 MG 120/30 Insuranc e [facility] JORDIN CALDERON [address] [address] 9 9 ACETAMIN OPHEN-CO DEINE 300MG-60 MG 120/30 Insuranc e [facility] JORDIN CALDERON [address] [address] 9 8 ACETAMIN OPHEN-CO DEINE 300MG-60 MG 120/30 Insuranc e [facility] JORDIN CALDERON g page 1 of 1 [id number] mber of Searches This Month: 5. Prescrip [...] Updated DateTime 4 180.34 cm 27.3 kg/m2 30389.1 g 97.8 [degF] 120 mm[Hg] 74 mm[Hg] Latha Zamarripa CMA [facility] 4 08:28:45 Date Recorded Heart rate Respiratory rate Oxygen saturation Oxygen saturation in Arterial blood by Pulse oximetry Heart rate Provider Name and Address Organization Details Last Updated DateTime 4 69 /min 15 /min 97 % 97 % 69 /min Clarence Squires MD [address] [facility], [facility] [address], [place], [address], [facility] 4 09:03:15 Date Recorded Body height Body mass index (BMI) Body weight Heart rate Oxygen saturation Oxygen saturation in Arterial blood by Pulse oximetry Body temperature Systolic blood pressure Diastolic blood pressure Provider Name and Address Organization Details Last Updated DateTime 4 180.34 cm 27.1 kg/m2 70732.9 2 g 74 /min 96 % 96 % 98.3 [degF] 120 mm[Hg] 80 mm[Hg] Latha Zamarripa CMA [facility] 08:32:28 Date Recorded Heart rate Respiratory rate Provider Quintin bautista and Address Organization Details Last Updated DateTime 04/15/2024 74 /min 14 /min Clarence Squires MD [address], [address], [facility] [employer] [facility] 04/15/2024 08:37:26 Date Recorded Body height Body mass index (BMI) Body weight Heart rate Oxygen saturation Oxygen saturation in Arterial blood by Pulse oximetry Body temperature Systolic blood pressure Diastolic blood pressure Provider Name and Address Organization Details Last Updated DateTime 180.34 cm 27.8 kg/m2 97193.8 8 g 82 /min 97 % 97 % 97.9 [degF] 116 mm[Hg] 80 mm[Hg] Naz Anaya MA [facility] [employer] [facility] 10:27:17 Date Recorded Heart rate Respiratory rate Provider Quintin bautista and Address Organization Details Last Updated DateTime 06/30/2024 82 /min 15 /min Clarence Squires MD [address] [facility] [address], [address], [facility] [employer] [facility] 06/30/2024 10:48:46 Date Recorded Body height Body mass index (BMI) Body weight Heart rate Body temperature Oxygen saturation Oxygen saturation in Arterial blood by Pulse oximetry Systolic blood pressure Diastolic blood pressure Provider Name and Address Organization Details Last Updated DateTime 180.34 cm 28.7 kg/m2 57500.2 3 g 57 /min 97 [degF] 97 % 97 % 130 mm[Hg] 86 mm[Hg] DONTAE Nur [facility] [employer] [facility] 4 11:33:49 Date Recorded Body height Body mass index (BMI) Body weight Body temperature Provider Name and Address Organization Details Last Updated DateTime 11/12/2024 180.34 cm 27.9 kg/m2 75344.47 g 98.2 [degF] Joselin Nunez RN [facility] [employer] [facility] 11/12/2024 10:24:22 Social History Question Answer Notes LastModified by Organizat ion Details LastModified Time Tobacco Smoking Status Never Smoker Not Available [facility] 12/20/2022 09:14:44 What Is Your Level Of Alcohol Consumption? Occasional [id number] Information not available 12/20/2022 What Is Your Level Of Caffeine Consumption? Moderate Information not available 06/30/2024 In The 14 Days Before Symptom Onset, Have You Had Close Contact With A Laboratory-confi rmed COVID-19 While That Case Was Ill? No [id number] Information not available 12/20/2022 In The 14 Days Before Symptom Onset, Have You Had Close Contact With A Person Who Is Under Investigation For COVID-19 While That Person Was Ill? No [id number] Information not available 12/20/2022 Are You Currently Employed? Yes Information not available 06/30/2024 What Type Of Diet Are You Following? REGULAR Information not available 06/30/2024 Which Illicit Or Recreational Drugs Have You Used? Marijuana Information not available 06/30/2024 Do You Have An Electrostatic Air Filter? No Information not available 06/30/2024 What Is Your Occupation? [employer] Information not available 06/30/2024 Do You Have [...] Anxious, Or Unable To Sleep At Night)? [id number] Information not available 06/30/2024 Do You Use Any Illicit Or Recreational Drugs? Yes Information not available 06/30/2024 Do You Use Sunscreen Routinely? No When He Remembers Information not available 06/30/2024 Have You Recently Traveled Abroad? No [id number] Information not available 12/20/2022 Do You Have [...] Organization Details LastModified Time Father Heart disease [id number] Not available 12/20/2022 09:15:06 Brother Heart disease [id number].353 [id number] Not available 12/20/2022 09:15:06 Brother Diabetes mellitus [id number].639 [id number] Not available 12/20/2022 09:15:06 Sister Diabetes mellitus [id number].631 [id number] Not available 12/20/2022 09:15:06 Mother Rheumatoid arthritis [...] BLOOD DISEASES N SCHIZOPHRENIA N SHINGLES N BOWEL PROBLEMS N SHOULDER PAIN N DEPRESSION (INCLUDING POST ) N STROKE/TIA N KNEE PAIN N ULCERS N BENIGN PROSTATIC HYPERPLASIA N OBESITY N GERD/NAUSEA N ANEURYSM N URINARY/BLADDER/KIDNEY PROBLEMS N CORONARY ARTERY DISEASE (CAD) N ADDICTION CONCERNS N USE OF BLOOD THINNERS N SKIN PROBLEMS N EMPHYSEMA N MUSCLE,JOINT OR BONE PROBLEMS N DVT N STOMACH ULCERS N BLOOD CLOTS N USE OF NSAIDS N CONCUSSION OR SPINAL TRAUMA N NEUROPATHY N AIDS/HIV N FRACTURES N ELBOW PAIN N HYPERTENSION N TOURETTE'S N ANXIETY DISORDER N Metal allergy N BLOOD TRANSFUSION N ANEMIA/BLOOD DISORDER N BIPOLAR DISORDER N BRONCHITIS N OSTEOARTHRITIS N TUBERCULOSIS N FOOT PROBLEM N HEART VALVE DISORDERS N ALLERGIES/HAYFEVER N SOFT TISSUE INJURY N INFECTIOUS DISEASE N HEART ARRHYTHMIA N INSOMNIA N RHEUMATOID ARTHRITIS N HIGH CHOLESTEROL / HYPERLIPIDEMIA N EDEMA N CHRONIC PAIN SYNDROME N CAROTID BLOCKAGE N BACK / NECK PROBLEMS N HAVE YOU BEEN HOSPITALIZED OR SEEN IN [facility] IN THE PAST YEAR ? N BURSITIS N HERNIATED DISC N DIALYSIS N FIBROMYALGIA N OSTEOPOROSIS N ARTHRITIS Y NO SIGNIFICANT PAST MEDICAL HISTORY N PERIPHERAL NEUROPATHY N DIABETES, TYPE N HEARTBURN / REFLUX N HEPATITIS / LIVER DISEASE N GOUT N SLEEP DISORDER N ALZHEIMER'S DISEASE N HERPES N SEIZURES/EPILEPSY N HEADACHES/MIGRAINES N VASCULAR DISEASE N HIP PAIN N Blood Disorder N DIZZINESS N HEAD TRAUMA OR INJURY N HEART DISEASE/HEART PROBLEMS N MULTIPLE SCLEROSIS N CARDIAC ARRHYTHMIA N CANCER: SPECIFY N ANESTHESIA COMPLICATIONS N ATRIAL FIBRILLATION N AUTOIMMUNE DISEASE N Immunizations Vaccine Type Date Status Note Provider Nam e and Address Organization Details Recorded Time Tdap 02/27/2018 completed Not Available [facility] 12/20/2022 09:21:04 Past Encounters Encounter ID Performer Location Encounter Start Date Encounter Closed Date Diagnosis/Indication Diagnosis SNOMED-CT Code Diagnosis ICD10 Code Diagnosis Note [id number] [facility] [address] [place] [address] 02/28/2021 00:00:00 02/28/2021 10:23:02 [id number] [facility] [address] [place] [address] 08/29/2021 00:00:00 08/29/2021 10:30:38 [id number] [facility] [place] [address] [facility] [address] [place] [address] 09/14/2021 00:00:00 09/14/2021 12:34:13 [id number] [facility] [place] [address] [facility] [address] [place] [address] 09/21/2021 00:00:00 09/21/2021 16:30:53 [id number] [facility] [address] [place] [address] 10/13/2021 00:00:00 10/16/2021 17:13:49 [id number] [facility] [place] [address] [facility] [address] [place] [address] 10/28/2021 00:00:00 11/01/2021 20:15:52 [id number] [facility] [place] [address] [facility] [address] [place] [address] 11/14/2021 00:00:00 11/20/2021 17:08:42 [id number] [facility] [place] [address] [place] [address] 11/28/2021 00:00:00 11/28/2021 15:23:51 [id number] [facility] [place] [address] [place] [address] 12/26/2021 00:00:00 12/26/2021 16:49:41 [id number] [facility] [address] [address] 02/27/2022 00:00:00 02/27/2022 10:42:19 [id number] [facility] [address] [address] 08/28/2022 00:00:00 08/28/2022 10:59:12 [id number] Jordin Calderon MD [facility] [address] [address] 02/26/2023 10:47:57 02/26/2023 11:17:02 Adult health examination 048740674 Z00.00 Depression screening 171 184408 Z13.31 Gastroesop hageal reflux disease 834882520 K21.9 Rheumatoid arthritis 698 74904 M06.9 Hypercholesterolemia 136 48588 E78.00 [id number] Jordin Calderon MD [facility] [address] [address] 09/10/2023 11:00:55 09/10/2023 12:15:10 Hypercholesterolemia 42931956 E78.00 Rheumatoid arthritis 698 16618 M06.9 Gastroesop hageal reflux disease 297701723 K21.9 Disorder of prostate 302 01363 N42.9 [id number] Jordin Calderon MD [facility] [address] [address] 03/19/2024 11:28:22 03/19/2024 11:55:07 Essential hypertension 88128648 I10 Hypercholesterolemia 136 98224 E78.00 Gastroesop hageal reflux disease 013606522 K21.9 Obstructiv e sleep apnea syndrome 12668507 G47.33 Rheumatoid arthritis 698 51805 M06.9 [id number] [facility] [address] [place] [address] 0 03/25/2024 08:10:10 03/26/2024 09:25:22 Obstructive sleep apnea syndrome 80721558 G47.33 Periodic l imb movement disorder 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 D50.8 E83.42 [id number] Clarence Squires MD [place] [address] 0 04/15/2024 08:08:27 04/16/2024 08:19:16 Obstructive sleep apnea syndrome 37622602 G47.33 Iron deficiency 65603177 E61.1 [id number] Clarence Squires MD [facility] [address] [place] [address] 0 06/30/2024 09:51:36 07/01/2024 15:27:29 Obstructive sleep apnea syndrome 61883509 G47.33 Iron deficiency 98213203 E61.1 [id number] Jordin Calderon MD [facility] Internal [facility] [address] [place] [address] 0 09/17/2024 11:20:41 09/17/2024 11:53:50 Essential hypertension 12298889 I10 Rheumatoid arthritis 698 39799 M06.9 Hypercholesterolemia 136 74530 E78.00 Gastroesop hageal reflux disease 043410471 K21.9 [id number] [employer] [facility] [place] [address] [place] [address] 11/12/2024 10:08:49 11/12/2024 11:03:51 Cholesteatoma of middle ear 23804437 H71.90 Health Concerns Section Related Observation LastModified by Organization Detai ls LastModified Time None Recorded Concern Status LastModified by Organization Details LastModified Time None Recorded Advance Directives Directive None Recorded Payers Encounter Date Sequence Insurance Name Policy Number Policy Vela Covered Member ID Vela Member ID Guarantor Name 03/25/2024 1 [employer] [facility] [facility] [employer] [id number] Kenneth Lai [id number] Kenneth Lai 04/15/2024 1 [employer] [facility] [facility] [employer] [id number] Kenneth L Lai [id number] Kenneth Lai 06/30/2024 1 [employer] [facility] [id number] Kenneth Cat Lai [id number] Kenneth Lai 09/17/2024 1 [employer] [facility] [id number] Kenneth L Lai [id number] Kenneth Lai 11/12/2024 1 [facility] [facility] [employer] [id number] Kenneth L Lai [id number] Kenneth Lai Notes Date Note Type Note Provider Name and Address Organization Details Recorded Time 03/25/2024 text/html Primary care/Ref erring provider: Jordin Calderon MD; Sheyla Bond MD During the [facility] home sleep study on 12/12/23, AHI = 60. During the [facility] titration sleep study on 03/19/24, sleep [...] slight chance of dozing. Clarence Squires MD [address] [place] [address], [address], [place] [facility] [employer] 03/25/2024 09:03:25 04/15/2024 text/html Primary care/Ref erring provider: Jordin Calderon MD; Sheyla Bond MD During the [facility] home sleep study on 12/12/23, AHI = 60.During the [facility] titration sleep study on 03/19/24, sleep [...] slight chance of dozing. Clarence Squires MD [address] [place] [address], [address], [facility] 04/15/2024 08:54:08 06/30/2024 text/html Primary care/Ref erring provider: Jordin Calderon MD; Sheyla Bond MD During the [facility] home sleep study on 12/12/23, AHI = 60.During the [facility] titration sleep study on 03/19/24, sleep [...] chance of dozing. Clarence Squires MD [address] [facility] [address], [place], [address], [facility] [employer] 06/30/2024 10:55:35 09/17/2024 text/html Patient Name: Raffi [...] Systemic Symptoms:none Medication Reconciliation: from medication list. Ejbjvpyzxpz67/19/2022: Pharmacological stress test nd echocardiogram demonstrated normal [...] below. Physical activity status unchanged. Followed by Handbag Designer: Yes. Tolerating medications well. Medications currently consistent [...] 325 MG TABLET Three Times Week Surgical Ysbaxco1960-68 Rt. TSD9118-67 Lap Rrqoyumcvotnkyw6806-27 Lt. Knee Pxnhwoa6062-77 Rt. Knee Hvapufz4845-35 Appendectomy Preventative Testing( ) 03/25/2024 Albumin 4.2 G/DL( ) 09/25/2023 PSA 0.62 NG/ML N 09/25/2025(X) 03/14/2023 LDCT 03/14/2024( ) 04/10/2022 Colonoscopy ( 5 Years ) 04/10/2027( ) 03/14/2019 CT Thorax(X) 08/10/2006 Upper Endoscopy 08/10/2011 Social HistorySOCIAL HISTORY:Smoking Hx: 1.5 of cigarettes per day for 20 years. 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 [employer] [address], [place], [address], [place] [facility] 11/12/2024 11:03:16
--- OUTSIDE RECORDS SUMMARY | 2025-01-23 10:31 | XMS_ITS | Referral Summary ---
Author Organization [facility] Address [address] [place] [address] Care Team Providers Care Aircraft Loadmaster Superintendent Name Role Phone Chalo Calderon MD Primary Care Provider Encounters Date Type Department Care Team Description 01/01/2025 9:37 PM CDT - 01/01/2025 11:59 PM CDT Hospital Encounter [facility] ([facility]) [address] [place] [address] Discharge Disposition: Discharge to home or self care 12/30/2024 4:20 PM CDT Office Visit [facility] [address] [place] [address] Diaz Zaldivar MD Conductive hearing loss, bilateral (Primary Dx); Cholesteatoma of left ear 12/30/2024 4:00 PM CDT Procedure visit [facility] [address] [place] [address], [address] [place] [address] Mixed conductive and sensorineural hearing loss of right ear with restricted hearing of left ear (Primary Dx); Sensorineural hearing loss (SNHL) of left ear with restricted hearing of right ear 11/21/2024 Telephone [facility] ([facility] [address] [facility] [address] [place] [address] [place] [address] Katarina Hurd MS registered from [...] on file Legal 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 There will be no report generated by a [facility] Radiologist. Narrative RAD_PACS_[facility] - 01/01/2025 9:37 PM CDT EXAMINATION: Images For Reference Purposes Only us Diaz Zaldivar MD IMG CT PROCEDURES Final Res ult [facility] * [employer] Results (12/30/2024 3:37 PM CDT) us Provider Scanning AUDIOLOGY SERVICES ORDERABLES Final Result from Last 3 Months Insurance [facility] CHOICE PLUS [facility] HMO/PPO Address: [place] [address] Care Teams Aircraft Loadmaster Superintendent Relationship Specialty Start Date End Date Chalo Calderon MD PCP - General 03/30/17
--- OUTSIDE RECORDS SUMMARY | 2025-01-23 10:31 | XMS_ITS | Clinical Summary ---
Author Organization [facility] [employer] Address [address] [place] [address] Care Team Providers Care J2Ee Application Developer Name Role Phone Chalo Calderon MD Primary Care Provider [phone] Source Comments [facility] [employer],non-owned Affiliates and Associated Physician Practices is amultiple site organization consisting of ambulatory clinics and hospital sitesin [place], [place], [place] and [place]. This disclosure is being madepursuant to the Care Everywhere program and may not contain all information available regarding this patient. Last updated 18.[facility] [employer] Social History Tobacco Use Types Packs/Day Years [...] age to complete this topic Care Teams J2Ee Application Developer Relationship Specialty Start Date End Date Chalo Calderon MD [address] [place] [address] [address] [place] [address] PCP - General Internal Medicine 06/17/19
--- OUTSIDE RECORDS SUMMARY | 2025-01-23 10:31 | XMS_ITS | Continuity of Care Document ---
Author Organization [facility] Address [address] [place] [address] Phone Care Team Providers Care Bale Breaker Operator Name Role Phone Medley OD, Luke Unavailable Unavailable Advance Directives Directive Yes / No Effective Date File Name No Information Encounters Encounter Description Practice Location Reason(s) For Visit Diagnoses Date Provider Providers Copied on Encounter [facility], [address], [place], [place], [id number], [place] tel:[phone] [facility] No Information 5-200 5 Medley OD Luke. [address] [facility] , [address], [place], [address], [place]. tel:[phone] Family History Family Member Type Diagnosis Age At Onset No Information Payers Payer name Insurance type Covered green party ID Authoriza tion(s) No Information Social [...]
--- OUTSIDE RECORDS SUMMARY | 2025-01-23 10:31 | XMS_ITS | CONTINUITY OF CARE DOCUMENT ---
Author Name hosea jc Address Unknown Organization [facility] Address [address] [place] [address] Phone [phone] Care Team Providers Care Strategic Partner Development Manager Name Role Phone Varun ROMERO, Sheyla Unavailable JORDIN MENA MD Unavailable [phone] JORDIN MENA MD Unavailable [phone] PROBLEMS Condition Status Date Provider Notes Rheumatoid [...] In-person encounter Office Visit Sheyla Bond MD [facility] - In-person encounter Office Visit Sheyla Bond MD [facility] JENNIFER has overnight cpap study scheduled - In-person encounter Office Visit Sheyla Bond MD [facility] HypertensionOSA has overnight cpap study scheduled - In-person encounter Office Visit Sheyla Bond MD [facility] Shortness of breath--echo ef 65%, 09/2022EmphysemaChest pain--nl stress nuc, 09/2022 - In-person encounter Office Visit Sheyla Bond MD [facility] Family hx of heart diseaseChest pain--nl stress nuc, 09/2022Fatigue VITAL SIGNS Date Observation Value Provider Body Mass Index (Ratio) 4.27 kg/m2 Priyank Bond MD blood pressure, diastolic 87 mm[Hg] Mendoza [facility] blood pressure, systolic 119 mm[Hg] Tracy kamara [place] oxygen saturation, oximetry 93 % [facility] pulse rate 72 /min [facility] weight E&M 203.6 [lb_av] [facility] blood pressure, cuff size regular Mendoza [facility] height E&M 183 [in_i] [facility] Body Mass Index (Ratio) 4.16 kg/m2 Priyank [...] cabralesLogestephanie blood pressure, systolic 139 mm[Hg] Suzanne [facility] blood pressure, cuff size regular Angle borja [place] blood pressure, diastolic 90 mm[Hg] Angle borja [place] blood pressure, systolic 139 mm[Hg] Ezio orantes Poon pulse rate 72 /min Charmaine [place] oxygen saturation, oximetry 92 % [facility] respiratory rate E&M 16 /min Charmaine Smith iller weight E&M 194 [lb_av] [facility] height E&M 183 [in_i] [facility] Body Mass Index (Ratio) 3.64 kg/m2 Priyank [...] Log blood pressure, systolic 130 mm[Hg] Suzanne [facility] weight E&M 72 [lb_av] Phoebemilan Bae [...] Payer name Policy type / Coverage type [place] red alliance party ID [facility] [id number] Other [id number] ADVANCE DIRECTIVES Name Date DISCUSSED - NO DECISION MADE TREATMENT PLAN Date Name Performer [id number],S, Romulo Munguia i [id number],S, Romulo Munguia i [id number],S, Romulo Munguia i [id number],B, Romulo Munguia i [id number],S, Romulo Munguia i [id number],S, Romulo Munguia i [id number],S, Romulo Munguia i [id number],S, Romulo Munguia i [id number],S, Romulo Munguia i [id number],S, Romulo Munguia i Cardiology:This visi t has [...]
== END 2025-01-22 10:08 | disposition home or self-care (01) ==
LOC: ANHLAB 01-23 10:08
PROVIDERS: PCP Internal Medicine; Visit Provider Plastic Surgery
DX: R22.31 Localized swelling, mass and lump, right upper limb (principal)
CPT/HCPCS: 88304

== ENCOUNTER 2025-03-31 13:40 | Outpatient (CLI) | payer OTHER, SELFPAY ==
--- OUTSIDE RECORDS SUMMARY | 2025-03-31 14:55 | XMS_ITS | Clinical Summary ---
Author Organization [facility] Address [address] [place] [address] Care Team Providers Care Director Professional Services Name Role Phone Chalo Calderon MD Primary Care Provider [phone] Source Comments [facility],non-owned Affiliates and Associated Physician Practices is amultiple site organization consisting of ambulatory clinics and hospital sitesin [place], [place], [place] and [place]. This disclosure is being madepursuant to the Care Everywhere program and may not contain all information available regarding this patient. Last updated 18.[facility] Spectrum5 Social History Tobacco Use Types Packs/Day Years Used Date Smoking Tobacco: Never Assessed Sex and Gender Information Value Date Recorded Sex Assigned at Not on file Legal Sex Male 10:00 AM CDT Gender Identity Not on file Sexual Orientation [...] VACCINE ( - 2023-2 5 season) 2024 DEPRESSION SCREENING 10/22/2024 INFLUENZA VACCINE (Season Ended) 2025 Respiratory Syncytial Virus (RSV) Vaccine Pt: or [...] on patient's age to complete this topic Insurance [facility] SELF PAY NO INSURANCE Member Subscriber Plan / Payer (Ef fective for All Dates) Name:Francesca Lai Member ID:Not on file Relation to Subscriber:Not on file Name:FRANCESCA LAI Subscriber ID:Not on file (Home) Address: [address] [place] [id number] Payer ID:Not on file Group ID:Not on file Type:Self Pay Address: [place], [place] Care Teams Director Professional Services Relationship Specialty Start Date End Date Chalo Calderon MD [address] [address] PCP - General Internal Medicine 06/17/19
--- OUTSIDE RECORDS SUMMARY | 2025-03-31 14:55 | XMS_ITS | Continuity of Care Document ---
Author Organization [facility] Address [address] [place] [address] Phone Care Team Providers Care Substance Abuse Specialist Name Role Phone Medley OD, Luke Unavailable Unavailable Advance Directives Directive Yes / No Effective Date File Name No Information Encounters Encounter Description Practice Location Reason(s) For Visit Diagnoses Date Provider Providers Copied on Encounter [facility], [address], [place], [place], [id number], [place] tel:[phone] [facility] No Information 5-200 5 Medley OD Luke. [address] , [address], [place], [address], [place]. tel:[phone] Family History Family Member Type Diagnosis Age [...]
--- OUTSIDE RECORDS SUMMARY | 2025-03-31 14:55 | XMS_ITS | CONTINUITY OF CARE DOCUMENT ---
Author Name hosea nisahuang Address Unknown Organization [facility] Address [address] [place] [address] Phone [phone] Care Team Providers Care Forensic Materials Engineer Name Role Phone Varun ROMERO, Sheyla Unavailable [phone] JORDIN MENA MD Unavailable JORDIN MENA MD Unavailable [phone] PROBLEMS Condition Status Date Provider Notes Rheumatoid arthritis (RA) active Romulo Ahmed martina GERD active Romulo Ahmedzai Hyperlipidemia active Romulo Ahmedzai Shortness of breath--echo ef 65%, 09/2022 active Romulo Ahmedzai Emphysema completed - Romulo Osborne Family hx of heart disease active Sheyla redd MD Chest pain--nl stress nuc, 09/2022 active Romulo Osborne Fatigue active Sheyla Bond MD Hypertension active Sheyla Bond MD JENNIFER--on cpap active Sheyla Bond MD Preoperative cardiovascular evaluation, knee active Sheyla Bond MD ENCOUNTERS Date Type Provider Location Encounter Diag nosis - In-person encounter Office Visit Sheyla Bond MD [facility] JENNIFER--on cpapPreoperative cardiovascular evaluation, knee - In-person encounter Office Visit Sheyla Bond MD [facility] - In-person encounter Office Visit Sheyla Bond MD [facility] JENNIFER--on cpap - In-person encounter Office Visit Sheyla Bond MD [facility] HypertensionOSA--on cpap - In-person encounter Office Visit Sheyla Bond MD [facility] Shortness of breath--echo ef 65%, 09/2022EmphysemaChest pain--nl stress nuc, 09/2022 - In-person encounter Office Visit Sheyla Bond MD [facility] Family hx of heart diseaseChest pain--nl stress nuc, 09/2022Fatigue VITAL SIGNS Date Observation Value Provider Body Mass Index (Ratio) 28.61 kg/m2 Priyank Bond MD blood pressure, cuff size regular [facility] blood pressure, diastolic 92 mm[Hg] Raffi becker[facility], systolic 150 mm[Hg] [facility] oxygen saturation, oximetry 97 % Ashley Bell pulse rate 72 /min Ashley [place] [facility] weight E&M 211 [lb_av] Ashley [place] [facility] height E&M 72 [in_i] Ashley [place] [facility] Body Mass Index (Ratio) 4.27 kg/m2 Priyank Bond MD blood pressure, diastolic 87 mm[Hg] Mendoza gomez [place] blood pressure, systolic 119 mm[Hg] Tracy kamara [place] oxygen saturation, oximetry 93 % [facility] [place] pulse rate 72 /min [facility] [place] weight E&M 203.6 [lb_av] Mendozaarojuana [place] blood pressure, cuff size regular Wa patricia [place] height E&M 183 [in_i] Peyton Magallon Body Mass Index (Ratio) 4.16 kg/m2 Priyank Bond MD blood pressure, cuff size regular Ta bitha Poon blood pressure, diastolic 84 mm[Hg] Ta bitha Poon blood pressure, systolic 124 mm[Hg] Tab itha Poon oxygen saturation, oximetry 100 % Tena Poon respiratory rate E&M 12 /min Tena Poon pulse rate 76 /min Tena Poon weight E&M 198.4 [lb_av] Tena Poon height E&M 183 [in_i] Tena Poon Body Mass Index (Ratio) 4.07 kg/m2 Priyank Bond MD blood pressure, diastolic 90 mm[Hg] Li nkLog blood pressure, systolic 139 mm[Hg] Suzanne kLog blood pressure, cuff size regular Angle borja [place] blood pressure, diastolic 90 mm[Hg] Angle borja Poon blood pressure, systolic 139 mm[Hg] Ezio [facility] pulse rate 72 /min [facility] oxygen saturation, oximetry 92 % [facility] respiratory rate E&M 16 /min Charmaine aponter weight E&M 194 [lb_av] Charmaine [place] height E&M 183 [in_i] Charmaine [place] Body Mass Index (Ratio) 3.64 kg/m2 Priyank Bond MD blood pressure, diastolic 77 mm[Hg] St amauri Bae blood pressure, systolic 126 mm[Hg] Dov Bae oxygen saturation, oximetry 98 % Phoebe Bae pulse rate 61 /min Phoebe Bae weight E&M 173.6 [lb_av] Phoebe Bae respiratory rate E&M 16 /min Phoebe roman height E&M 183 [in_i] Phoebe Catalino Body Mass Index (Ratio) 1.51 kg/m2 Priyank Bond MD blood pressure, diastolic 86 mm[Hg] Tyra nkLog blood pressure, systolic 130 mm[Hg] Suzanne kLog weight E&M 72 [lb_av] Phoebe Catalino height E&M 183 [in_i] [facility] blood pressure, diastolic 86 mm[Hg] St baugh Catalino blood pressure, systolic 130 mm[Hg] [facility] milan Catalino oxygen saturation, oximetry 95 % [facility] pulse rate 66 /min [facility] respiratory rate E&M 18 /min Phoebe roman ALLERGIES No Known Drug Allergies HISTORY OF MEDICATION USE Medication Status Instructions Dates Provider Indications Com ments ferrous sulfate 325 mg (65 mg iron) tablet active Take 1 tablet by mouth three times a day Peyton Magallon Vitamin C 500 mg tablet completed Take 1 tablet by mouth once a day - Ashley Bell losartan 50 mg tablet active Take 1 tablet by mouth once a day Ashley Barahonaer losartan 50 mg tablet completed TAKE 1 TABLET BY MOUTH ONCE DAILY - Ashley Bell omeprazole 40 mg capsule,delayed release(DR/EC) active Take 1 by mouth once a day Ashley Bell Enbrel SureClick 50 mg/mL (1 mL) pen injector active one shot a week Ashley Bell losartan 50 mg tablet completed - Romulo Rhodes(CF) Pen 40 mg/0.4 mL pen injector kit completed - Romulo Osborne methotrexate sodium 2.5 mg tablet completed - Romulo Osborne tramadol 50 mg tablet completed - Sheyla Bond MD gabapentin 300 mg capsule completed - Romulo Osborne atorvastatin 20 mg tablet active TAKE 1 TABLET BY MOUTH EVERY DAY Ashley Bell SOCIAL HISTORY Date Observation Value Provider Underweight no Sheyla Bond MD passive cigarette sm april exposure no Romulo Osborne chewing tobacco use Never Romluo Chesterisreal banda smoking, year quit 2020 Romuloburt nix cigarette use yes Romulo Osborne smoking status Former smoker Romuloburt Munguia i Underweight yes Sheyla Bond MD passive cigarette sm april exposure no Romulo Osborne chewing tobacco use Never Romulo Lily banda smoking, year quit 2020 Romuloburt nix cigarette use yes Romulo Osborne smoking status Former smoker Romulo Nilda rodriguez passive cigarette sm april exposure no Sheyla [...] Romulo Osborne smoking status Former smoker Romulo Nilda rodriguez Underweight yes Sheyla Bond MD social history E&M S moking History: J Carlos perez is a former smoker. Romulo Osborne passive cigarette sm april exposure no Phoebe Bae chewing tobacco use Never Phoebe Alec mccabe smoking, year quit 2020 Phoebe Jo is cigarette use yes Phoebe Bae smoking status Former smoker Phoebe Bae social history reviewed E&M revi ewed - no changes required Romulo Osborne Underweight yes Sheyla Bond MD social history E&M S moking History: J Carlos perez is a former smoker. Romulo Osborne smoking, year quit 2020 Phoebe Jo is cigarette use yes Phoebe Bae passive cigarette sm april exposure no Phoebe Bae chewing tobacco use Never Phoebe Da estelle smoking status Former smoker Phoebe Bae social history reviewed E&M revi ewed - no changes required Romulo Osborne INSURANCE PROVIDERS Payer name Policy type / Coverage type [place] red alliance party ID [facility] [id number] Other [id number] ADVANCE DIRECTIVES Name Date DISCUSSED - NO DECISION MADE TREATMENT PLAN Date Name Performer [id number],S, Romulo Chestermedza i [id number],S, Romulo Chestermedza i [id number],S, Romulo Chestermedza i [id number],B, Romulo Chestermedza i [id number],S, Romulo Chestermedza i [id number],S, Romulo Chestermedza i [id number],S, Romulo Ahmedza i [id number],S, Romulo Ahmedza i [id number],S, Romulo Ahmedza i [id number],S, Romulo Ahmedza i [facility] Uriah [facility] Telehealth Uriah Kalpana Telehealth Uriah Kalpana Cardiology: H is updated medication list for this problem includes: Atorvastatin 20 Mg Tablet (Atorvastatin) ..... Take 1 tablet by mouth every day Sheyla Bond MD Cardiology:This visi t has been a part of the consistent, comprehensive, and ongoing management of the chronic medical condition(s) listed above for the patient. His updated medication list for this problem includes: Losartan 50 Mg Tablet (Losartan) ..... Take 1 tablet by mouth once a day Orders: S tress Regadenoson (CPT-38834) C omplete Echo (35229) Sheyla Bond MD Cardiology: O rders: S tress Regadenoson (CPT-57747) C omplete Echo (04735) Sheyla Bond MD Cardiology: O rders: S tress Regadenoson (CPT-[id number]) C omplete Echo (39438) Sheyla Bond MD Cardiology:This visi t has been a part [...] Romulo Ahmedzai Cardiology Romulo Ahmedzai Date Name Complete Echo Stress Regadenoson Sleep Study Home RPM (remote patient monitoring) Stress Regadenoson Complete Echo HISTORY OF PROCEDURES Procedure Date Procedure Name Provider Procedure Notes S tatus Complex e/m visit add on Sheyla Bond MD completed Complex e/m visit add on Sheyla Bond MD completed EKG Sheyla Bond MD completed
--- OUTSIDE RECORDS SUMMARY | 2025-03-31 14:55 | XMS_ITS | Referral Summary ---
Author Organization [facility] Address [address] [place] [phone] Care Team Providers Care Auto Mechanic Name Role Phone Chalo Calderon MD Primary Care Provider Encounters Date Type Department Care Team Description 01/01/2025 9:37 PM CDT - 01/01/2025 11:59 PM CDT Hospital Encounter [facility] [address] [place] [id number] Discharge Disposition: Discharge to home or self care 12/30/2024 4:20 PM CDT Office Visit [facility] Otolaryngology [address] [place] [address], [address] [address] Diaz Zaldivar MD Conductive hearing loss, bilateral (Primary Dx); Cholesteatoma of left ear 12/30/2024 4:00 PM CDT Procedure visit [facility] Otolaryngology [address] [place] [address], [address] [address] Mixed conductive and sensorineural hearing loss of right ear with restricted hearing of left ear (Primary Dx); Sensorineural hearing loss (SNHL) of left ear with restricted hearing of right ear from Last 3 Months Allergies No known [...] on file 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 There will be no report generated by a [facility] Radiologist. Narrative RAD_PACS_[facility]J - 01/01/2025 9:37 PM CDT EXAMINATION: Images For Reference Purposes Only us Diaz Zaldivar MD IMG CT PROCEDURES Final Res ult RAD_PACS_[facility] * AudBase Results (12/30/2024 3:37 PM CDT) us Provider Scanning AUDIOLOGY SERVICES ORDERABLES Final Result from Last 3 Months Insurance [facility] CHOICE PLUS [facility] HMO/PPO Address: [facility] [id number] [place] [address] Care Teams Auto Mechanic Relationship Specialty Start Date End Date Chalo Calderon MD PCP - General 03/30/17
--- OUTSIDE RECORDS SUMMARY | 2025-03-31 14:55 | XMS_ITS | Clinical Summary ---
Author Organization [facility] Address [address] [place] [address] Care Team Providers Care Drum Maker Name Role Phone Chalo Calderon MD Primary [...] - 01/01/2025 11:59 PM CDT Hospital Encounter [facility] [address] [place] [id number] Discharge Disposition: Discharge to home or self care 12/30/2024 4:20 PM CDT Office Visit [facility] Otolaryngology [address] [place] [address] Diaz Zaldivar MD Conductive hearing loss, bilateral (Primary Dx); Cholesteatoma of left ear 12/30/2024 4:00 PM CDT Procedure visit [facility] Otolaryngology [address] [place] [address] Mixed conductive and sensorineural hearing loss of right ear with restricted hearing of left ear (Primary Dx); Sensorineural hearing loss (SNHL) of left ear with restricted hearing of right ear from Last 3 Months Social History Tobacco Use Types Packs/Day Years Used Date Smoking Tobacco: Never Assessed Sex and Gender Information Value Date Recorded Sex Assigned at Not on file 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 There will be no report generated by a [facility] Radiologist. Narrative RAD_PACHaim_[facility] - 01/01/2025 9:37 PM CDT EXAMINATION: Images For Reference Purposes Only us Diaz Zaldivar MD IMG CT PROCEDURES Final Res ult RAD_PACS_[facility] * AudBase Results (12/30/2024 3:37 PM CDT) us Provider Scanning AUDIOLOGY SERVICES ORDERABLES Final Result from Last 3 Months Insurance [facility] CHOICE PLUS Care Teams Drum Maker Relationship Specialty Start Date End Date Chalo Calderon MD PCP - General 03/30/17
[2025-03-31 15:33] LABS: Basophils Percent Auto 0.5 % (0.2-1.2); Eosinophils Absolute Auto 0.1 K/mm3 (0-0.3); Hematocrit 43.1 % (42.0-52.0); Immature Granulocyte Absolute 0.02 K/mm3 (0.00-0.031); Immature Granulocyte Percent A 0.2 % (0-0.5); Lymphocytes Percent Auto 20.3 % (18.3-44.2); Mean Corpuscular HGB Conc 32.5 g/dl (32-36); Mean Corpuscular Hemoglobin 30.7 pg (26-34); Mean Corpuscular Volume 94.5 fl (80-100); Mean Platelet Volume 9.3 fl (7.4-10.4); Monocytes Absolute Auto 0.6 K/mm3 (0.1-0.6); Monocytes Percent Auto 7.1 % (2.6-8.5); Neutrophils Absolute Auto 5.9 K/mm3 (1.3-6.7); Neutrophils Percent Auto 70.9 % (45.5-73.1); Platelet Count Result 271 k/mm3 (150-375); Red Blood Count 4.56 M/mm3 (4.6-6.20); Red Cell Distribution Width 13.8 % (11.5-14.5); White Blood Count 8.4 K/mm3 (4.5-10.0)
[2025-03-31 15:44] LABS: Albumin Level 4.7 g/dL (3.5-5.1); Anion Gap 8 mmol/L (4-12); Blood Urea Nitrogen 25 mg/dL (9-20); Calcium 9.9 mg/dL (8.4-10.2); Carbon Dioxide 25 mmol/L (22-30); Chloride 104 mmol/L (98-107); Estimated Glomerular Filt Rate > 60; Glucose 104 mg/dL (65-110); Potassium 4.3 mmol/L (3.4-5.0); Sodium 137 mmol/L (137-145)
[2025-03-31 15:48] LABS: Urine Cotinine NEGATIVE
[2025-03-31 15:50] LABS: Hemoglobin A1C 5.7 % (<5.7)
== END 2025-03-31 13:41 | disposition home or self-care (01) ==
LOC: ANHSURGERY 13:44
PROVIDERS: PCP Internal Medicine; Visit Provider Orthopaedic Surgery
DX: Z01.812 Encounter for preprocedural laboratory examination (principal); M17.2 Bilateral post-traumatic osteoarthritis of knee
CPT/HCPCS: 80048; 80307; 82040; 83036; 85025; 87081

== ENCOUNTER 2025-04-23 01:32 | Day surgery (SDC) | payer OTHER, SELFPAY ==
[2025-03-31 14:28] VITALS: BP 132/86; PULSE 81; RESP 16; TEMP 37.3; O2SAT 95; BMI 29.6
--- NOTE | 2025-03-31 14:47 | PC.NURSE ---
Report to the Outpatient Waiting Room, entrance under the green pavilion located off [facility], at time ___10:00AM____ on date ___04/23/25____. Planned Procedure Time: ___12:00PM____.? Time changes happen often and if your time is changed the preop area will call you the afternoon before. - You and your visitor will be asked to self-screen and do not enter if you have any COVID symptoms. Please call surgeon if you need to reschedule. - A mask is optional within the hospital at this time. Patients may have clear liquids (water, carbonated beverages, clear teas, apple juice) until 3 hours prior to surgery (9:00AM) with a maximum of 20 ounces. - No food from midnight until time of surgery and no smoking, or chewing tobacco (or any form of nicotine). No chewing gum, candy or mints. Take only the following medications with a SIP of water on the morning of surgery: __PREDNISONE NEEDED DO NOT STOP ANY OF YOUR OTHER PRESCRIPTION MEDICATIONS PRIOR TO SURGERY EXCEPT THE FOLLOWING Hold all vitamins and supplements for 3 days per anesthesiologist.-LAST DOSE 04/19/25 Medications to discontinue per physician __HOLD ENBREL 2 WEEKS PRE-OP PER DR ARCE- LAST DOSE 04/08/25. HOLD ALL NSAIDS(DICLOFENAC) 7 DAYS PRE-OP PER DR ARCE- LAST DOSE 04/15/25.__ Please no make-up, nail turkish, hairspray, perfume, deodorant, or body powder the day of surgery.? No jewelry (including any body piercings) or valuables the day of surgery, leave them at home.? Please take a shower or bath the night before, or the morning of, surgery with an antibacterial soap.? Wear comfortable, loose fitting clothing.? - Jewelry must be removed prior to entering the operating room.? Rings and piercings that are not removed may be cut off. - The hospital will not accept responsibility for valuables.? - Please leave all valuables, including medications, at home the day of surgery. If you are going home after surgery, a licensed high lift driver must drive you home.? - NO public transportation without another adult if you receive anesthesia. - We recommend that an adult stay with you for 24 hours following discharge. - We also recommend that you do not drive, make important decision, drink alcoholic beverages, or take any drugs that were not prescribed by your health care provider for at least 24 hours after your discharge time. Follow any additional instructions given to you from your surgeon. Telephone instructions given to ____PATIENT and asked if any additional questions and then verbalized understanding. Patient advised to call surgeon office or pre surgery nurse liaison [phone] if any additional questions.
--- NOTE | 2025-04-22 12:37 | P.HP_ITS ---
H&P: HPI History of Present Illness Date/Time: 04/22/25 12:37 Chief Complaint: Left knee DJD Narrative: 64-year-old male presents today for left total knee arthroplasty. He has been dealing with pain in the left knee for several years. He has a history of rheumatoid arthritis and is on Enbrel for that. Patient has severe lateral compartment osteoarthritis in the left knee with a significant flexion contract ure. He has had cortisone injections in the past without much improvement. Patient has undergone right total knee arthroplasty in 2020. He had excellent result is happy with his right total knee. At this point he feels he is ready proceed with left total knee. Review of Systems Review of Systems: All systems reviewed & are unremarkable except as noted in HPI and below PMFSH Past Medical History Medical History (Updated 04/08/25 @ 11:01 by Bebeto Garcia MD) Chronic, continuous use of opioids Rheumatoid arthritis Hyperlipidemia Surgical History Surgical History (Updated 04/08/25 @ 08:42 by Anette Arteaga [facility]) History of hand surgery History of arthroscopic knee surgery History of right knee joint replacement History of cholecystectomy History of appendectomy Family History Family History Father Heart disease Sibling Heart disease Social History Social History (Updated 03/20/25 @ 07:53 by Mya Coley [facility]) Smoking packs per day: 1 Smoking cigarettes per day: 20.0 Years smoked: 30 Smoking pack-years: 30.00 Smoking status: Former smoker Tobacco type: cigarettes Second hand tobacco smoke exposure: Yes Smoking end date: 04/21/20 Additional smoking assessment comments: Quit 3-4 years ago Alcohol intake: current Drinks per week: 20 Alcohol use details: 12 pack a week, socially Substance use: current Substance use type: marijuana Other substance usage details: daily Do You Feel Safe in your Home?: Yes Lack of Transportation: No Lack of Food: Never True Current Housing: I Have Housing Concerned About Future Housing: No Difficulty Paying Gas/Electric Bills: No Difficulty Paying for Meds: No Currently Unemployed: No Education: High School Diploma/GED Difficulty w/ Childcare or Family Care: No Living arrangements: alone Spiritual care concerns: No Meds Home Medications and Allergies Home Medications ?Medication ?Instructions ?Recorded ?Confirmed ?Type atorvastatin 20 mg tablet 20 tablet PO DAILY 03/23/22 04/08/25 History etanercept 50 mg/mL (1 mL) 50 mg subcut WEEKLY 10/28/24 04/08/25 History subcutaneous pen injector (Enbrel SureClick) losartan 50 mg tablet 50 mg PO DAILY 10/28/24 04/08/25 History multivitamin with minerals-folic 1 tablet PO DAILY 10/28/24 04/08/25 History acid 0.4 mg tablet (One-A-Day Men's Pro Edge) prednisone 5 mg tablet 5 mg PO DIRECTED PRN pain 03/20/25 04/08/25 History ascorbic acid (vitamin C) 500 mg 500 mg PO DAILY 03/31/25 04/08/25 History capsule cyclobenzaprine 10 mg tablet 10 mg PO Q8H PRN muscle spasm 03/31/25 04/08/25 History omeprazole 40 mg capsule,delayed 40 mg PO QAM 03/31/25 04/08/25 History release Allergies Allergy/AdvReac Type Severity Reaction Status Date / Time No Known Allergies Allergy Verified 04/08/25 08:40 Exam Narrative: 64-year-old male he is 5 ft 10 206 lb BM I is 29.5. Left knee range of motion is from 12-125. Normal stability in the knee. He has a fixed valgus deformity. Moderate effusion. Hip range of motion on the left is full without discomfort. Negative Stinchfield maneuver. Normal quad strength. He has normal sensation left lower extremity. 2+ dorsalis pedis and posterior to we artery pulse palpable. There is no edema in lower extremities. Resp: Auscultation: clear to auscultation bilaterally Cardio: Rate: regular rate Rhythm: regular rhythm Assessment and Plan Assessment and plan (1) Arthritis of left knee: Code(s): M17.12 - Unilateral primary osteoarthritis, left knee Status: Acute Assessment and Plan: 64-year-old male who has severe lateral compartment osteoarthritis with continued severe symptoms daily. This point patient feels that he would like to proceed with total knee arthroplasty rather than continue nonsurgical treatment. Surgical procedure well as the risks complications were discussed in detail all questions were answered proceed. Patient has stopped his Enbrel as of 04/08. He will avoid any aspirin ibuprofen products 1 week prior to surgery. He will see his primary care doctor for pre-surgical clearance. He has seen cardiology, he is at an echocardiogram which showed ejection fraction 55% as well as a myocardial perfusion test which showed no abnormalities and ejection fraction at 65%. He has been cleared from cardiology standpoint. Patient's nasal swab was negative. Hemoglobin is 14.0 platelets 271. Chem panel is within normal limits creatinine 1.11.
[2025-04-23] VITALS (13 sets, daily range): BP systolic 111–152; BP diastolic 64–89; PULSE 81–98; RESP 14–18; TEMP 36.1–37.1; O2SAT 97–100
--- NOTE | ~2025-04-23 | XR_ITS ---
EXAMINATION: [id number] DATE: 04/23/2025 16:57 INDICATION: Postoperative evaluation following left total knee arthroplasty. TECHNIQUE: Anteroposterior and lateral views of the left knee were obtained. COMPARISON: None. FINDINGS: Left total knee arthroplasty with patellar resurfacing appears well seated and in near anatomic align ment. 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 No fractures identified. Expecte d postoperative subcutaneous, intramedullary and intra-articular gas. IMPRESSION: 1. Left total knee arthroplasty, negative for postoperative purposes. Reviewed, dictated and finalized at location B.
--- OUTSIDE RECORDS SUMMARY | 2025-04-23 01:35 | XMS_ITS | Clinical Summary ---
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
--- OUTSIDE RECORDS SUMMARY | 2025-04-23 01:35 | XMS_ITS | Continuity of Care Document ---
Author Organization [facility] Address [address] [place] [address] Phone Care Team Providers Care Claims Attorney Name Role Phone Medley OD, Luke Unavailable Unavailable Advance Directives Directive Yes / No Effective Date File Name No Information Encounters Encounter Description Practice Location Reason(s) For Visit Diagnoses Date Provider Providers Copied on Encounter [facility], [address], [place], [place], [id number], [place] tel:[phone] [facility] No Information 5-200 5 Medley OD Luke. [address] , [address], [place], [address], [place]. tel:[phone] Family History Family Member Type Diagnosis Age At Onset No Information Payers Payer name Insurance type Covered republican ID Authoriza tion(s) No Information Social History [...]
--- OUTSIDE RECORDS SUMMARY | 2025-04-23 01:35 | XMS_ITS | Clinical Summary ---
Author Organization [facility] Address [address] [place] [address] Care Team Providers Care Towel Cabinet Repairer Name Role Phone Chalo Calderon MD Primary Care Provider [phone] Source Comments [facility],non-owned Affiliates and Associated Physician Practices is amultiple site organization consisting of ambulatory clinics and hospital sitesin [place], [place], [place] and [place]. This disclosure is being madepursuant to the Care Everywhere program and may not contain all information available regarding this patient. Last updated 18.[facility] Social History Tobacco Use Types Packs/Day Years [...] patient's age to complete this topic Insurance [facility] SELF PAY NO INSURANCE Member Subscriber Plan / Payer (Ef fective for All Dates) Name:Francesca Lai Member ID:Not on file Relation to Subscriber:Not on file Name:FRANCESCA LAI Subscriber ID:Not on file (Home) Address: [address] [place] [id number] Payer ID:Not on file Group ID:Not on file Type:Self Pay Address: [place], [place] Care Teams Towel Cabinet Repairer Relationship Specialty Start Date End Date Chalo Calderon MD [address] [address] PCP - General Internal Medicine 06/17/19
--- OUTSIDE RECORDS SUMMARY | 2025-04-23 01:35 | XMS_ITS | Referral Summary ---
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
[2025-04-23] MEDS: TRANEXAMIC ACID 1,000MG/ISO100 1,000 MG/100 ML BAG 200 MG IVPB (10:00)
[2025-04-23] MEDS: ACETAMINOPHEN 500 MG TABLET 1000 MG PO (10:00)
[2025-04-23] MEDS: LACTATED RINGERS 1,000 ML 30 ML IV CONT ×2 (10:10→16:56)
[2025-04-23] MEDS: VANCOMYCIN 1,500 MG/NS 500 ML BAG 250 MG IVPB (10:30)
--- NOTE | 2025-04-23 11:32 | WPDHPUPDATE1 ---
History and Physical Update Update Date/Time: 04/23/25 11:32 History and Physical has been reviewed, including an updated exam of the patient. There are NO changes in the patient's condition. Risks, benefits, and alternatives have been discussed and questions answered. Patient agrees to proceed with procedure.
--- NOTE | 2025-04-23 11:59 | WPDANESEPPF ---
Anes - Initial Pre Proc Eval Procedure: Operation Date: 04/23/25 12:00 Proposed Procedures p Left Total Knee Arthroplasty - Bebeto Garcia MD Date/Time: 04/23/25 11:59 Surgeon: Bebeto Garcia MD Pre Op Diagnosis: O A Lt Knee Patient Data Age: 64 Gender: M Height: 1.78 m Weight: 88.1 kg Last Vital Signs Temp 98.8 F 04/23/25 10:00 Pulse 89 04/23/25 10:00 Resp 16 04/23/25 10:00 BP 125/86 04/23/25 10:00 Pulse Ox 98 04/23/25 10:00 O2 Del Method Room Air 04/23/25 10:00 Allergies Allergy/AdvReac Type Severity Reaction Status Date / Time No Known Allergies Allergy Verified 04/23/25 10:45 Home Medications ?Medication ?Instructions ?Recorded ?Confirmed ?Type atorvastatin 20 mg tablet 20 tablet PO DAILY 03/23/22 04/23/25 History etanercept 50 mg/mL (1 mL) 50 mg subcut WEEKLY 10/28/24 04/23/25 History subcutaneous pen injector (Enbrel SureClick) losartan 50 mg tablet 50 mg PO DAILY 10/28/24 04/23/25 History multivitamin with minerals-folic 1 tablet PO DAILY 10/28/24 04/23/25 History acid 0.4 mg tablet (One-A-Day Men's Pro Edge) prednisone 5 mg tablet 5 mg PO DIRECTED PRN pain 03/20/25 04/08/25 History ascorbic acid (vitamin C) 500 mg 500 mg PO DAILY 03/31/25 04/23/25 History capsule cyclobenzaprine 10 mg tablet 10 mg PO Q8H PRN muscle spasm 03/31/25 04/08/25 History omeprazole 40 mg capsule,delayed 40 mg PO QAM 03/31/25 04/23/25 History release Patient hx anesthesia problems: none Family hx anesthesia problems: none Results Review: All pre-operative results and documents have been reviewed as part of the pre-operative evaluation. [facility] Past Medical History Medical History (Updated 04/08/25 @ 11:01 by Bebeto Garcia MD) Chronic, continuous use of opioids Rheumatoid arthritis Hyperlipidemia Surgical History Surgical History (Updated 04/08/25 @ 08:42 by Anette Arteaga CMA) History of hand surgery History of arthroscopic knee surgery History of right knee joint replacement History of cholecystectomy History of appendectomy Family History Family History Father Heart disease Sibling Heart disease Social History Social History (Updated 03/20/25 @ 07:53 by Mya Coley [facility]) Smoking packs per day: 1 Smoking cigarettes per day: 20.0 Years smoked: 30 Smoking pack-years: 30.00 Smoking status: Former smoker Tobacco type: cigarettes Second hand tobacco smoke exposure: Yes Smoking end date: 04/21/20 Additional smoking assessment comments: Quit 3-4 years ago Alcohol intake: current Drinks per week: 20 Alcohol use details: 12 pack a week, socially Substance use: current Substance use type: marijuana Other substance usage details: daily Do You Feel Safe in your Home?: Yes Lack of Transportation: No Lack of Food: Never True Current Housing: I Have Housing Concerned About Future Housing: No Difficulty Paying Gas/Electric Bills: No Difficulty Paying for Meds: No Currently Unemployed: No Education: High School Diploma/GED Difficulty w/ Childcare or Family Care: No Living arrangements: alone Spiritual care concerns: No Anes - Eval Final PreProcedure Day of Procedure 04/23/25 11:59 Patient weight: normal Heart: regular rate and rhythm Lungs: clear to auscultation Airway: Mallampati scale class III Neurological: alert and oriented Last oral intake: >/= 8 hours ASA classification: III Emergent: no Anesthetic plan: proceed Anesthesia type and monitoring: general ETT and standard monitoring Results Review: All pre-operative results and documents have been reviewed as part of the pre-operative evaluation. Informed Consent: The patient's anesthetic plan and its attendant risks and benefits were discussed with the patient/family/POA. Questions were solicited and answers provided to the satisfaction of the patient/family/POA.
[2025-04-23] MEDS: ceFAZolin 2 GM/D5W 50 ML 2 GM/50 ML BAG IVPB ×2 (12:34→20:30)
[2025-04-23] MEDS: SODIUM CHLORIDE 0.9% IV 37.7 ML, MORPHINE SULFATE INJ (*CRX) 2 MG, ROPivacaine HCL 1% 2... INFILTRATE (12:46)
[2025-04-23] MEDS: GENTAMICIN BONE CEMENT REFOBACIN 1 EACH TOPICAL (15:38)
[2025-04-23] MEDS: KETOROLAC 15 MG/ML VIAL (*BKC) IV PUSH ×2 (16:01→21:10)
[2025-04-23] MEDS: TRANEXAMIC ACID 1,000 MG/10 ML AMPUL 1000 MG IV PUSH (16:04)
--- NOTE | 2025-04-23 16:54 | P.OP_ITS ---
Procedure Note - Detailed Date of Procedure 04/23/25 Pre-op Diagnosis Lateral compartment O A Lt Knee with grade 2 valgus deformity and flexion contracture Post-op Diagnosis Same Procedure Performed Left total knee arthroplasty Surgeon Bebeto Garcia MD System Administrator [facility]amar Anesthesia General Description of Procedure Patient was brought to the operating room and general anesthesia was administered. The left knee was prepped and draped in usual fashion. Under anesthesia he continued to have a 12 degree flexion contracture and valgus deformity that did not correct passively. He received 2 g of Ancef weight based vancomycin 1 g of TXA preoperatively. Limb was exsanguinated tourniquet elevated to 300 mmHg. A an 8 in longitudinal midline incision was used and a standard parapatellar arthrotomy utilized. Partial excision of infrapatellar fat pad performed and a quadriceps synovectomy carried out. Suprapatellar fat pad excised. The patella measured 24 mm in thickness centrally and there was cartilage loss centrally. The patella was cut to 16 mm. Bone quality was excellent. Next a guide radu was inserted on femoral canal after aspiration of canal contents using the 5 degree valgus cutting bushing 9 mm of bone removed the distal femur. Next the tibial plateau was cut. We attempted to make a skim cut the low point of the lateral tibial plateau which was lower than the medial tibial plateau. This was made perpendicular to the axis of the tibia. Our 1st cut left a wear defect posterolaterally therefore an additional 2 mm of bone was removed from the tibial plateau. Bone quality again was excellent. This gave us a skin cut leaving a surface of sclerotic bone in the posterior 1/2 of lateral tibial plateau. Meniscal remnants were excised and the PCL recessed central posterior capsule released. Flexion gap at 90? measured 10-11mm medially and 10 mm laterally. This is unusual for a valgus knee. He had no lateral femoral condylar hypoplasia. There was no varus slope on the tibial plateau. We applied the femoral sizing guide set at 2? of external rotation which matched Whitesides line. Posterior referencing pinholes were placed. The femur was cut to a size 72.5 which gave a flush cut with the anterior cortex. This fit line to line medial to lateral. Hand quality again was excellent. We trialed with the 10 mm CR trial and saw that at 90? of flexion loose no lateral opening and we had about 2 mm of medial opening. The knee booked open medially at 10? of flexion. With the trial components removed laminar spreaders were placed and we confirmed that we were tighter laterally. The posterolateral capsule was released exposing the lateral collateral ligament release the posterolateral capsule to the lateral margin of the popliteus at the level posterolateral tibial plateau. Her a iliotibial band felt tight and we released the the tibial band approximately 1.5 cm proximal to the lateral tibial plateau. Posterior capsular release was performed. The tibia was sized to a vanguard 79 which fit line to line medial to lateral at proper rotation. This was punched. On trialing we were still too tight laterally and lacked about 8? of extension although the medial side was no longer booked open. Additional 2 mm of bone was removed the distal femur. Posterior femoral osteophytes proximal to the posterior femoral condyles of the femoral trial were removed. The knee at this point had a barely positive bounce but no happening laterally at 5? from full extension with varus stress therefore an additional 1 mm of bone was removed the. Trialing with the 10 insert the knee now came out to full extension with 0.5 mm of lateral opening negative bounce appropriate AP stability at 90? however in extension to valgus stress the knee opened up 5 mm and a 10? of flexion and opened up 6 mm medially to valgus stress. Therefore, it was decided that constraint would be best due to excessive medial laxity despite maximal release bilaterally without releasing the lateral collateral ligament and popliteus tendon. The 360 femoral trial was applied the distal femur from the 360 SSK set. This was pinned. The bone for the intercondylar box was removed and the Boss Reamer used for the 40 mm Boss the intramedullary canal. We trialed with the 10 insert with the SSK post which gave us full range of motion. Anterior drawer at 90? was about 4 5 mm. At 120? anterior drawer was eliminated. The knee came out to full extension with no hyperextension and negative bounce. A 24 mm Gastelum's plug cement restrictor was placed in the femoral canal. The patella was sized to a 37 thin which is 8.6 mm in thickness lug holes were drilled. A step drill was used to make multiple perforations in his tibial plateau and distal femur. Bone quality was excellent throughout so I did not feel that rods were indicated. The tourniquet had been put down at 90 minutes earlier and this time the limb was exsanguinated tourniquet elevated again to 300 mmHg. The bony surfaces were thoroughly irrigated and dried. Two batches of methylmethacrylate were mixed 1 with gentamicin powder the cement was immediately applied to the size 79 vanguard tibial tray and the size 72.5 SSK left vanguard femoral component. Cement was applied the tibial plateau pressurized tibial component fully seated cement applied the femur the femoral component fully seated the knee brought into extension with 11 mm 5 and 1 insert for cement pressurization. The 37 thin patella was cemented. Tourniquet was released total tourniquet time 111 minutes. Two additional g of Ancef 1 g 1 g of TXA was given. After cement hardening excess cement was sought for removed and hemostasis was confirmed. Estimated blood loss for the procedure was about 300 cc. We trialed with 10 SSK insert and had same stability and range of motion findings as above. I did try to insert the 12 5 and 1 insert but it was too tight to insert. Local anesthetic cocktail was injected in the periarticular soft tissues. The 10 SSK insert was inserted without difficulty locked with a locking pin. Range of motion stability and patellar tracking reconfirmed. Specific lateral retinacular release was not performed. Arthrotomy was closed with 2. Vicryl was. Range of motion was full extension 135? of flexion to gravity. Arthrotomy reinforced with 1. Unidirectional barbed Stratafix suture. Skin closed with 2 subcutaneous Vicryl 3-0 subcuticular Monocryl and glue. There were no complications he was transferred to postop recovery room in stable condition. [facility] - Charge Forward: Surgery Billzeb (Left total knee arthroplasty)
--- NOTE | 2025-04-23 17:01 | PM.OP ---
Procedure Note - Brief Procedure Note - Brief Date of procedure: 04/23/25 O A Lt Knee Procedure performed: Left total knee arthroplasty Surgeon: ALEC Medina Findings: 64-year-old male underwent left total knee arthroplasty on 04/23. I was involved in the procedure including positioning the patient on the OR table in 1st assisting through the time surgery. Total time spent was 4 hours
[2025-04-23] MEDS: fentaNYL CITRATE INJ (*CRX) 100 MCG/2 ML VIAL 25 MCG IV PUSH ×8 (17:11→18:03)
[2025-04-23] MEDS: HYDROmorphone HCL INJ (*CRX) 1 MG/ML SYR 0.5 MG IV PUSH (18:07)
[2025-04-23] MEDS: ACETAMINOPHEN 325 MG TABLET 650 MG PO ×2 (19:08→23:00)
[2025-04-23] MEDS: SENNA/DOCUSATE SODIUM TABLET 2 TAB PO (19:08)
[2025-04-23] MEDS: SODIUM CHLORIDE 0.9% IV 1,000 ML 125 ML IV CONT (19:09)
[2025-04-23] MEDS: oxyCODONE HCL (*CRX) 5 MG TAB IR PO ×2 (19:09→23:00)
[2025-04-23] MEDS: FAMOTIDINE 20 MG TABLET PO (20:06)
[2025-04-23] MEDS: VANCOMYCIN 1,000 MG/NS 250 ML 1,000 MG/250 ML BAG 250 MG IVPB (23:00)
[2025-04-24 00:11] VITALS: BP 129/76; PULSE 86; RESP 12; TEMP 36.4; O2SAT 100
[2025-04-24] MEDS: KETOROLAC 15 MG/ML VIAL (*BKC) IV PUSH (00:26)
[2025-04-24] MEDS: oxyCODONE HCL (*CRX) 5 MG TAB IR PO ×3 (03:31→10:59)
[2025-04-24] MEDS: ACETAMINOPHEN 325 MG TABLET 650 MG PO ×3 (03:46→10:59)
[2025-04-24] MEDS: ceFAZolin 2 GM/D5W 50 ML 2 GM/50 ML BAG IVPB ×2 (03:47→13:03)
[2025-04-24 04:17] VITALS: BP 116/68; PULSE 77; RESP 13; TEMP 36.6; O2SAT 100
[2025-04-24 06:19] LABS: Hematocrit 36.3 % (42.0-52.0); Hemoglobin 11.8 g/dL (14.0-18.0); Immature Granulocyte Percent A 0.4 % (0-0.5); Lymphocytes Absolute Auto 0.99 K/mm3 (0.9-3.2); Mean Corpuscular HGB Conc 32.5 g/dl (32-36); Mean Corpuscular Hemoglobin 30.5 pg (26-34); Mean Corpuscular Volume 93.8 fl (80-100); Nucleated Red Blood Cells Absolute Auto 0.000 K/mm3 (0.0-0.012); Nucleated Red Blood Cells Perc 0.0 % (0.0-0.2); Platelet Count Result 219 k/mm3 (150-375); Red Blood Count 3.87 M/mm3 (4.6-6.20); White Blood Count 12.3 K/mm3 (4.5-10.0)
[2025-04-24 06:24] LABS: Anion Gap 9 mmol/L (4-12); Blood Urea Nitrogen 22 mg/dL (9-20); Calcium 8.6 mg/dL (8.4-10.2); Carbon Dioxide 20 mmol/L (22-30); Chloride 107 mmol/L (98-107); Estimated CRCL calculation 58 ml/min; Estimated Glomerular Filt Rate > 60; Glucose 121 mg/dL (65-110); Potassium 4.3 mmol/L (3.4-5.0); Sodium 136 mmol/L (137-145)
[2025-04-24] MEDS: ONDANSETRON INJ 4 MG/2 ML VIAL IV PUSH (06:31)
[2025-04-24] MEDS: ATORVASTATIN 40 MG TABLET 20 MG PO (07:59)
[2025-04-24] MEDS: SENNA/DOCUSATE SODIUM TABLET 2 TAB PO (07:59)
[2025-04-24] MEDS: CELECOXIB 200 MG CAPSULE PO (07:59)
[2025-04-24] MEDS: LOSARTAN POTASSIUM 50 MG TABLET PO (07:59)
[2025-04-24] MEDS: FAMOTIDINE 20 MG TABLET PO (07:59)
[2025-04-24] MEDS: APIXABAN 2.5 MG TABLET PO (08:00)
--- NOTE | 2025-04-24 08:06 | P.CONIM_ITS ---
Assessment and Plan Assessment and plan (1) Rheumatoid arthritis: Code(s): M06.9 - Rheumatoid arthritis, unspecified Status: Acute (2) Status post right knee replacement: Code(s): Z96.651 - Presence of right artificial knee joint Status: Acute Plan work with pt/ot possible discharge today per ortho resume RA tx VS reviewed and stable encouraged IS to prevent pneumonia/atelectasis HPI Date of Consult Consult date: 04/24/25 Requesting Physician: Bebeto Garcia MD Primary Care Provider: Chalo Calderon, MD Consult Narrative Reason for consult: med mngmnt Narrative: Kenneth Lai is a 64 year old male with pmh/o RA -on enbrel, hld underwent LTKR with Dr Garcia om 04/23/25. he had rtkr done in 2020 and did well. He had been dealing with pain to left side for a whiel and finally decided to have surgery. Reports no chest pain, no Review of Systems 2 Review of Systems: All systems reviewed & are unremarkable except as noted in HPI and below PMFSH Past Medical History Medical History (Updated 04/08/25 @ 11:01 by Bebeto Garcia MD) Chronic, continuous use of opioids Rheumatoid arthritis Hyperlipidemia Surgical History Surgical History (Updated 04/24/25 @ 08:46 by Bebeto Garcia MD) History of hand surgery History of arthroscopic knee surgery History of right knee joint replacement History of cholecystectomy History of appendectomy Family History Family History Father Heart disease Sibling Heart disease Social History Social History (Updated 03/20/25 @ 07:53 by Mya Coley [facility]) Smoking packs per day: 1 Smoking cigarettes per day: 20.0 Years smoked: 30 Smoking pack-years: 30.00 Smoking status: Never smoker Tobacco type: cigarettes Second hand tobacco smoke exposure: Yes Smoking end date: 04/21/20 Additional smoking assessment comments: Quit 3-4 years ago Alcohol intake: current Drinks per week: 20 Alcohol use details: 12 pack a week, socially Substance use: never Substance use type: does not use Other substance usage details: daily Do You Feel Safe in your Home?: Yes Lack of Transportation: No Lack of Food: Never True Current Housing: I Have Housing Concerned About Future Housing: No Difficulty Paying Gas/Electric Bills: No Difficulty Paying for Meds: No Currently Unemployed: No Education: Decline to Answer Difficulty w/ Childcare or Family Care: No Living arrangements: alone Spiritual care concerns: No Meds Home Medications and Allergies Home Medications ?Medication ?Instructions ?Recorded ?Confirmed ?Type atorvastatin 20 mg tablet 20 tablet PO DAILY 03/23/22 04/23/25 History etanercept 50 mg/mL (1 mL) 50 mg subcut WEEKLY 10/28/24 04/23/25 History subcutaneous pen injector (Enbrel SureClick) losartan 50 mg tablet 50 mg PO DAILY 10/28/24 04/23/25 History multivitamin with minerals-folic 1 tablet PO DAILY 10/28/24 04/23/25 History acid 0.4 mg tablet (One-A-Day Men's Pro Edge) prednisone 5 mg tablet 5 mg PO DIRECTED PRN pain 03/20/25 04/08/25 History ascorbic acid (vitamin C) 500 mg 500 mg PO DAILY 03/31/25 04/23/25 History capsule cyclobenzaprine 10 mg tablet 10 mg PO Q8H PRN muscle spasm 03/31/25 04/08/25 History omeprazole 40 mg capsule,delayed 40 mg PO QAM 03/31/25 04/23/25 History release acetaminophen 325 mg tablet 650 mg (2 x 325 mg) PO Q4H #100 04/24/25 Rx tabs apixaban 2.5 mg tablet (Eliquis) 2.5 mg PO Q12HR #28 tabs 04/24/25 Rx celecoxib 200 mg capsule (Celebrex) 200 mg PO DAILY@0800 #30 caps 04/24/25 Rx doxycycline hyclate 100 mg tablet 100 mg PO Q12HR #28 tabs 04/24/25 Rx oxycodone 5 mg tablet 5 mg PO Q4H PRN Pain Rated 7-10 04/24/25 Rx #40 tabs polyethylene glycol 3350 17 gram 17 g PO QAM #30 ea 04/24/25 Rx oral powder packet (Miralax) sennosides 8.6 mg-docusate sodium 2 tab PO BID #120 tabs 04/24/25 Rx 50 mg tablet (Senokot-S) Allergies Allergy/AdvReac Type Severity Reaction Status Date / Time No Known Allergies Allergy Verified 04/23/25 10:45 Vital Signs Vital Signs - 24 hr 04/23/25 10:00 04/23/25 16:56 04/23/25 17:10 Temperature 98.8 F 98.7 F Pulse Rate 89 98 88 Respiratory Rate 16 14 14 Blood Pressure 125/86 136/87 136/89 Pulse Oximetry 98 100 99 Oxygen Delivery Room Air Simple Face Mask Simple Face Mask Oxygen Flow Rate 6 6 04/23/25 17:25 04/23/25 17:40 04/23/25 17:55 Temperature Pulse Rate 91 82 90 Respiratory Rate 14 16 16 Blood Pressure 152/86 H 111/64 128/69 Pulse Oximetry 99 98 99 Oxygen Delivery Room Air Room Air Room Air Oxygen Flow Rate 04/23/25 18:10 04/23/25 18:25 04/23/25 18:32 Temperature 98.4 F 96.9 F L Pulse Rate 86 94 84 Respiratory Rate 16 18 18 Blood Pressure 122/80 137/75 143/78 H Pulse Oximetry 100 100 99 Oxygen Delivery Room Air Room Air Oxygen Flow Rate 04/23/25 18:47 04/23/25 19:17 04/23/25 20:17 Temperature 97.1 F L 97.6 F 97.3 F L Pulse Rate 81 86 87 Respiratory Rate 16 16 17 Blood Pressure 143/76 H 141/81 H 151/77 H Pulse Oximetry 100 98 100 Oxygen Delivery Oxygen Flow Rate 04/23/25 21:11 04/24/25 00:11 04/24/25 04:17 Temperature 97.6 F 97.9 F Pulse Rate 86 77 Respiratory Rate 12 13 Blood Pressure 129/76 116/68 Pulse Oximetry 97 100 100 Oxygen Delivery Room Air Oxygen Flow Rate Exam 2 Const: General: comfortable Resp: Effort & Inspection: normal respiratory effort Auscultation: clear to auscultation bilaterally Cardio: Rate: regular rate Rhythm: regular rhythm GI: GI Palp: Yes Soft to palpation Auscultation: normal bowel sounds Skin: General skin exam: normal color Other: dressing is c/d/i Psych: Affect: normal affect Results Labs 04/24/25 05:49 04/24/25 05:49 Labs: Short CBC 04/24/25 Range/Units 05:49 WBC 12.3 H (4.5-10.0) K/mm3 Hgb 11.8 L (14.0-18.0) g/dL Hct 36.3 L (42.0-52.0) % Plt Count 219 (150-375) k/mm3 [facility] 04/24/25 05:49 Sodium 136 L Potassium 4.3 Chloride 107 Carbon Dioxide 20 L BUN 22 H Creatinine 1.16 Glucose 121 H Calcium 8.6
[2025-04-24 08:17] VITALS: BP 120/67; PULSE 66; RESP 18; TEMP 36.8; O2SAT 100
--- NOTE | 2025-04-24 09:02 | P.PNOP_ITS ---
Progress Note: A&P Assessment and Plan (1) Status post left knee replacement: Code(s): Z96.652 - Presence of left artificial knee joint Status: Acute Assessment and Plan: Patient is postop day 1 after left total knee arthroplasty for type 2 valgus deformity with flexion contracture. He is feeling well. His pain is well controlled. He has minimal swelling about the knee. He has intact sensation and motor function in the left leg and foot. He is able to do a straight leg raise easily. Hemoglobin this morning 11.8. Sodium 136 creatinine normal. Patient has no drainage showing on the Mepilex dressing. I reviewed instructions with him carefully. He feels comfortable for discharge this afternoon after he works with physical therapy. He has not been out of bed yet since his surgery yesterday afternoon. Subjective Subjective Date/Time Seen: 04/24/25 09:02 Objective Data Vital Signs Vital Signs: Vital Signs - 24 hr 04/23/25 10:00 04/23/25 16:56 04/23/25 17:10 Temperature 37.1 C 37.1 C Pulse Rate 89 98 88 Respiratory Rate 16 14 14 Blood Pressure 125/86 136/87 136/89 Pulse Oximetry 98 100 99 Oxygen Delivery Room Air Simple Face Mask Simple Face Mask Oxygen Flow Rate 6 6 04/23/25 17:25 04/23/25 17:40 04/23/25 17:55 Temperature Pulse Rate 91 82 90 Respiratory Rate 14 16 16 Blood Pressure 152/86 H 111/64 128/69 Pulse Oximetry 99 98 99 Oxygen Delivery Room Air Room Air Room Air Oxygen Flow Rate 04/23/25 18:10 04/23/25 18:25 04/23/25 18:32 Temperature 36.9 C 36.1 C L Pulse Rate 86 94 84 Respiratory Rate 16 18 18 Blood Pressure 122/80 137/75 143/78 H Pulse Oximetry 100 100 99 Oxygen Delivery Room Air Room Air Oxygen Flow Rate 04/23/25 18:47 04/23/25 19:17 04/23/25 20:17 Temperature 36.2 C L 36.4 C 36.3 C L Pulse Rate 81 86 87 Respiratory Rate 16 16 17 Blood Pressure 143/76 H 141/81 H 151/77 H Pulse Oximetry 100 98 100 Oxygen Delivery Oxygen Flow Rate 04/23/25 21:11 04/24/25 00:11 04/24/25 04:17 Temperature 36.4 C 36.6 C Pulse Rate 86 77 Respiratory Rate 12 13 Blood Pressure 129/76 116/68 Pulse Oximetry 97 100 100 Oxygen Delivery Room Air Oxygen Flow Rate Intake/Output Intake/Output: Intake & Output 04/21/25 04/22/25 04/23/25 04/24/25 23:59 23:59 23:59 23:59 Intake Total 1000 1283.3 Output Total 500 Balance 1000 783.3 Meds/Results Medications: Active Medications Generic Name Dose Route Start Last Admin Trade Name Freq PRN Reason Stop Dose Admin Acetaminophen 650 mg 04/23/25 19:00 04/24/25 06:18 Acetaminophen 325 Mg Tablet PO 650 mg Q4H KEISHA Administration Apixaban 2.5 mg 04/24/25 09:00 04/24/25 08:00 Apixaban 2.5 Mg Tablet PO 05/05/25 21:01 2.5 mg Q12HR KEISHA Administration Atorvastatin Calcium 20 mg 04/24/25 09:00 04/24/25 07:59 Atorvastatin 40 Mg Tablet PO 20 mg DAILY KEISHA Administration Celecoxib 200 mg 04/24/25 08:00 04/24/25 07:59 Celecoxib 200 Mg Capsule PO 200 mg DAILY@0800 KEISHA Administration Diphenhydramine HCl 25 mg 04/23/25 18:32 Diphenhydramine Hcl Inj 50 Mg/Ml Vial IV PUSH Q6H PRN Itching Doxycycline Hyclate 100 mg 04/24/25 09:00 Doxycycline Hyclate 100 Mg Tablet PO 05/06/25 08:59 Q12HR KEISHA Famotidine 20 mg 04/23/25 21:00 04/24/25 07:59 Famotidine 20 Mg Tablet PO 20 mg Q12HR KEISHA Administration Cefazolin Sodium 2 gm in 50 mls @ 100 mls/hr 04/23/25 20:00 04/24/25 04:07 Ancef 2 Gm/D5w 50 Ml IVPB 04/24/25 12:29 100 mls/hr Q8H KEISHA Infusion Vancomycin HCl 1,000 mg in 250 mls @ 250 mls/hr 04/23/25 23:00 04/24/25 00:00 Vancomycin 1,000 Mg/Ns 250 Ml IVPB 04/24/25 11:59 Infused Q12H KEISHA Infusion Losartan Potassium 50 mg 04/24/25 09:00 04/24/25 07:59 Losartan Potassium 50 Mg Tablet PO 50 mg DAILY KEISHA Administration Miscellaneous Information 1 each 04/24/25 00:01 Clarify Prednisone Tapering Dose XX 05/24/25 00:00 [facility] Morphine Sulfate 2 mg 04/23/25 18:32 Morphine Sulfate (*Crx) 2 Mg/Ml Inj IV PUSH Q2H PRN Breakthrough Pain Rated 4-6 or NPO Naloxone HCl 0.1 mg 04/23/25 18:32 Naloxone Hcl 0.4 Mg/Ml Vial IV PUSH Q2M PRN Opiate Reversal Ondansetron HCl 4 mg 04/23/25 18:32 04/24/25 06:31 Ondansetron Inj 4 Mg/2 Ml Vial IV PUSH 4 mg Q4H PRN Administration Nausea And Vomiting Oxycodone HCl 5 mg 04/23/25 19:00 04/24/25 06:18 Oxycodone Hcl (*Crx) 5 Mg Tab Ir PO 5 mg Q4H KEISHA Administration Oxycodone HCl 5 mg 04/23/25 18:32 Oxycodone Hcl (*Crx) 5 Mg Tab Ir PO Q4H PRN Pain Rated 7-10 Polyethylene Glycol 17 gm 04/24/25 09:00 04/24/25 08:00 Polyethylene Glycol 3350 17 Gm Powd.Pack PO 17 gm QAM KEISHA Administration Prednisone 5 mg 04/23/25 18:32 Prednisone 5 Mg Tablet PO DIRECTED PRN pain Senna/Docusate Sodium 2 tab 04/23/25 18:32 04/24/25 07:59 Senna/Docusate Sodium Tablet PO 2 tab BID KEISHA Administration Radiology Results: ITS Impressions Knee X-Ray 04/23/25 17:06 IMPRESSION: 1. Left total knee arthroplasty, negative for postoperative purposes. Labs Labs: Laboratory Results - last 24 hr 04/24/25 05:49 WBC 12.3 H RBC 3.87 L Hgb 11.8 L Hct 36.3 L MCV 93.8 MCH 30.5 MCHC 32.5 RDW 13.4 Plt Count 219 MPV 9.3 Immature Gran % (Auto) 0.4 Neut % (Auto) 82.0 H Lymph % (Auto) 8.0 L [place] % (Auto) 9.3 H Eos % (Auto) 0.0 Baso % (Auto) 0.3 Lymph # (Auto) 0.99 [place] # (Auto) 1.2 H Eos # (Auto) 0.0 Baso # (Auto) 0.0 Abs Immat Gran (auto) 0.05 H Absolute Neuts (auto) 10.1 H Absolute Nucleated RBC 0.000 Nucleated RBC % 0.0 Sodium 136 L Potassium 4.3 Chloride 107 Carbon Dioxide 20 L Anion Gap 9 BUN 22 H Creatinine 1.16 Estim Creat Clear Calc 58 Estimated GFR > 60 Glucose 121 H Calcium 8.6
[2025-04-24] MEDS: DOXYCYCLINE HYCLATE 100 MG TABLET PO (10:59)
[2025-04-24] MEDS: VANCOMYCIN 1,000 MG/NS 250 ML 1,000 MG/250 ML BAG 250 MG IVPB (11:00)
[2025-04-24 12:17] VITALS: BP 126/64; PULSE 68; RESP 16; TEMP 36.6; O2SAT 99
--- NOTE | 2025-04-24 14:45 | PC.NURSE ---
On 04/24/25, the LACE AND TEXTILES RESTORER, [Gabi Nayak ], provided care and completed [facility] documentation on this patient. I have reviewed the LACE AND TEXTILES RESTORER's documentation and agree with the findings.
== END 2025-04-24 14:00 | disposition home or self-care (01) ==
LOC: ANHSURGERY 09:46 → ANH3MEDSUR 18:42
PROVIDERS: Physician Assistant Surgical; PCP Internal Medicine; Visit Provider Orthopaedic Surgery
PROC: (CPT 27447; principal; 2025-04-23 12:00)
DX: M17.12 Unilateral primary osteoarthritis, left knee (principal); M21.062 Valgus deformity, not elsewhere classified, left knee; M24.562 Contracture, left knee; M06.9 Rheumatoid arthritis, unspecified; Z87.891 Personal history of nicotine dependence; F12.90 Cannabis use, unspecified, uncomplicated
CPT/HCPCS: 27447; 36415; 73560; 80048; 85025; 97110; 97161; 97165; 97530; A9270; C1713; J0171; J0690; J1100; J1171; J1885; J2003; J2250; J2270; J2405; J2704; J2795; J3010; J3370; J7030; J7120

== ENCOUNTER 2025-05-25 12:30 | Outpatient (RCR) | payer OTHER, SELFPAY ==
--- NOTE | 2025-04-27 12:22 | OPREHPOC ---
Outpatient Therapy Plan of Care This is a Multidisciplinary Plan of Care that may contain components documented by all disciplines (PT, OT, and ST.) PT Problem 1 PT Problem #1 Knowledge Deficit PT Goal 1 Goal / Goal Update [place] with HEP Target Visit 4 PT Goal 2 Goal / Goal Update Report no pain greater than 2/10 for 2 consecutive weeks Target Visit 8 PT Problem 2 PT Problem #2 Impaired Range of Motion PT Goal 1 Goal / Goal Update Achieve 120 degrees of knee flexion ROM Target Visit 10 PT Problem 3 PT Problem #3 Impaired Gait PT Goal 1 Goal / Goal Update Ambulate independent of AD with even stride length bilaterally Target Visit 10 PT Problem 4 PT Problem #4 Edema PT Goal 1 Goal / Goal Update Demonstrate 2+cm of edema reduction indicating soft tissue healing Target Visit 10
--- NOTE | 2025-04-27 12:22 | PTOPEVAL1 ---
Assessment and note entered by Caleb Saul, PT Evaluation Information Assessment Status Evaluation Diagnosis Left TKA ICD-10 Condition Codes (PT) Pain in left knee M25.562,Aftercare following joint replacement surgery Z47.1 Onset 04/23/25 Subjective Information Reports that he has been very sore. Sleeping about 3 hours at a time. He has been having some nausea and dizziness right now that he feels is limiting his exercise participation. He has been having some vivid dreams as well. Pain all local to knee and lateral shank. He has been improving his sit to stands as he was initially having trouble getting on and off of the toilet. Reports that he has been having bowel movements but they are minimal because he ahs not had an appetite. He has been drinking a lot of milk but has trouble stomaching anything more that that at this time. Reported Pain Level Pain Score 4: Self Report Assessment PT Clinical Summary Patient presents with knee edema, weakness, and loss of flexion ROM typical of post operative total knee replacement. Patient will benefit form skilled therapy to address listed deficits to normalize gait pattern and restore functional independence. Plan of Care Interventions Gait Training,Manual Therapy,Neuro Re-education, Therapeutic Activities,Therapeutic Exercise PT Services Indicated Yes Treatment Frequency and 2x/week for 10 visits Duration These treatments will address the objective and functional deficits as defined above. The patient will be advanced safely and appropriately in order for the patient to progress towards his/her prior level of function. Additional exercises will be introduced and as well as a comprehensive home exercise program upon discharge, if needed, ?to ensure carryover of functional gains achieved in the clinic. This treatment plan has been reviewed and agreement upon by the patient.
--- NOTE | 2025-05-25 13:20 | OPREHPOC ---
Outpatient Therapy Plan of Care This is a Multidisciplinary Plan of Care that may contain components documented by all disciplines (PT, OT, and ST.) PT Problem 1 PT Problem #1 Knowledge Deficit PT Goal 1 Goal / Goal Update [place] with HEP Target Visit 4 Progress Met PT Goal 2 Goal / Goal Update Report no pain greater than 2/10 for 2 consecutive weeks Target Visit 8 Progress Met PT Problem 2 PT Problem #2 Impaired Range of Motion PT Goal 1 Goal / Goal Update Achieve 120 degrees of knee flexion ROM Target Visit 10 Progress Met PT Problem 3 PT Problem #3 Impaired Gait PT Goal 1 Goal / Goal Update Ambulate independent of AD with even stride length bilaterally Target Visit 10 Progress Met PT Problem 4 PT Problem #4 Edema PT Goal 1 Goal / Goal Update Demonstrate 2+cm of edema reduction indicating soft tissue healing Target Visit 10 Progress Met
--- NOTE | 2025-05-25 13:20 | PTOPDC ---
Assessment and note entered by Caleb Saul, PT Evaluation Information Assessment Status Discharge Diagnosis Left TKA ICD-10 Condition Codes (PT) Pain in left knee M25.562,Aftercare following joint replacement surgery Z47.1 Onset 04/23/25 Subjective Information Reports that overall he feels he has reached all of his goals. No concerns at this time with progress and feels comfortable with his HEP for continuation. He has been more conscious of frequent activity to maintain knee motion. Reported Pain Level Pain Score 0: Self Report Assessment PT Clinical Summary Patient has met all goals for therapy and is suitable for discharge to [facility] at this time. Knee ROM excellent and ambulation is even and secured. Patient is compliant with HEP. Plan of Care PT Services Indicated Yes
== END 2025-05-25 14:49 | disposition home or self-care (01) ==
LOC: ANHPT 12:30
PROVIDERS: PCP Internal Medicine; Visit Provider Orthopaedic Surgery
DX: Z47.1 Aftercare following joint replacement surgery (principal); M17.12 Unilateral primary osteoarthritis, left knee; Z96.652 Presence of left artificial knee joint
CPT/HCPCS: 97110; 97116; 97140; 97161; 97530

== ENCOUNTER 2025-07-01 09:30 | Outpatient (RCR) | payer OTHER, SELFPAY ==
--- NOTE | 2025-06-19 15:55 | OPREHPOC ---
Outpatient Therapy Plan of Care This is a Multidisciplinary Plan of Care that may contain components documented by all disciplines (PT, OT, and ST.) PT Problem 1 PT Problem #1 Knowledge Deficit PT Goal 1 Goal / Goal Update [place] with HEP PT Problem 2 PT Problem #2 Impaired Range of Motion PT Goal 1 Goal / Goal Update 1. Demonstrate terminal knee extension on L LE Target Visit 5 PT Problem 3 PT Problem #3 Impaired Gait PT Goal 1 Goal / Goal Update 1. Ambulate with even stride length bilaterally with terminal stance of gait Target Visit 5 PT Problem 4 PT Problem #4 Impaired Strength PT Goal 1 Goal / Goal Update Improve [place] hip flexion strength to 5/5 to improve foot clearance and progression Target Visit 5
--- NOTE | 2025-06-19 15:56 | PTOPEVAL1 ---
Assessment and note entered by Caleb Saul, PT Evaluation Information Assessment Status Evaluation Diagnosis Presence of left artificial knee joint ICD-10 Condition Codes (PT) Pain in left knee M25.562 Onset 04/23/25 Subjective Information Reports that he had history of total knee arthroplasty. He has been biking on stationary bike and that tends to help. He has fluctuations in knee swelling which seem to be improving with motion but has some knee irritation in R knee which was done 4 years ago. Feels that functionally he has issues with quad control when transferring sit to stand. If he sits with his knee bent for a prolonged time it is stiff as well . Reported Pain Level Pain Score 1: Self Report Assessment PT Clinical Summary Patient presents with minor ROM deficits in knee extension. He is showing some joint line soft tissue irritation and limitations in terminal stance of gait. Will benefit from continuity of knee functional ROM progression and gross functional strengthening at this time. Emphasis to be placed on activity modification and functional strength avoiding knee irritation. Plan of Care Interventions Gait Training,Manual Therapy,Neuro Re-education, Therapeutic Activities,Therapeutic Exercise PT Services Indicated Yes Treatment Frequency and 1x/week for 5 visits Duration These treatments will address the objective and functional deficits as defined above. The patient will be advanced safely and appropriately in order for the patient to progress towards his/her prior level of function. Additional exercises will be introduced and as well as a comprehensive home exercise program upon discharge, if needed, ?to ensure carryover of functional gains achieved in the clinic. This treatment plan has been reviewed and agreement upon by the patient.
--- NOTE | 2025-07-14 08:00 | PTOPDC ---
Assessment and note entered by Caleb Saul, PT Evaluation Information Assessment Status Discharge - Pt Not Present Diagnosis Presence of left artificial knee joint ICD-10 Condition Codes (PT) Pain in left knee M25.562 Onset 04/23/25 Subjective Information Patient contacted clinic stating that he followed up with MD and was discharged from care. Requests discharge from PT as well at this time. Assessment PT Clinical Summary Patient to be discharged from skilled therapy at this time per patient request. Please refer to last treatment note for discharge status. Plan of Care PT Services Indicated Yes
== END 2025-07-14 11:02 | disposition home or self-care (01) ==
LOC: ANHGOSHPT 09:30
PROVIDERS: PCP Internal Medicine; Visit Provider Orthopaedic Surgery
DX: Z47.1 Aftercare following joint replacement surgery (principal); M25.562 Pain in left knee; Z96.652 Presence of left artificial knee joint
CPT/HCPCS: 97110; 97140; 97161

== ENCOUNTER 2025-09-30 09:07 | Outpatient (CLI) | payer MEDICARE, SELFPAY ==
--- NOTE | ~2025-09-30 | CT_ITS ---
EXAMINATION:CT lung screening DATE: 09/30/2025 09:34 INDICATION: Screening TECHNIQUE: Computed tomography (CT) of the chest was performed without intravenous contrast. The dose-length product (DLP) was 128.09 mGy-cm. COMPARISON: None. FINDINGS: 4 x 3 mm partially calcified subpleural nodule right lower lobe image 72 series 4. 4 x 3 mm left lower lobe nodule image 83 series 2. No other nodules or masses seen. Diffuse degenerative changes in the bones which otherwise appear intact. Ascending thoracic aorta borderline aneurysmal measuring up to 4 cm at the level of the right pulmonary artery. Heart size normal. No acute process seen in the visualized portions of the upper abdomen or extrathoracic soft tissues. Cholecystectomy clips. Low density lesion in the right lobe of the liver image 100 series 2 statistically most likely represent small cyst. IMPRESSION: Small nodules likely radiographically benign. Other findings as above. Correlate with follow-up low-dose lung cancer screening chest CT in 6 months. Lung RADS 3. 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 Other findings as abo ve. Correlate with follow-up low-dose lung cancer screening chest CT in 6 month s. Lung RADS 3.
== END 2025-09-30 09:08 | disposition home or self-care (01) ==
PROVIDERS: PCP Internal Medicine; Visit Provider Internal Medicine
DX: Z12.2 Encounter for screening for malignant neoplasm of respiratory organs (principal); Z87.891 Personal history of nicotine dependence; R91.8 Other nonspecific abnormal finding of lung field
CPT/HCPCS: 71271